=== PATIENT | female | born 1955 | race Caucasian/White ===

== ENCOUNTER 2022-11-07 08:51 | Emergency (ER) | payer MEDICARE, OTHER, SELFPAY ==
[2022-11-07 09:04] VITALS: BMI 29.0
[2022-11-07 09:06] VITALS: BP 138/73; PULSE 84; RESP 16; TEMP 37.1; O2SAT 97
--- NOTE | 2022-11-07 09:10 | ED_ITS ---
HPI - Back Pain/Injury General: Chief Complaint: Back Pain/Injury Stated Complaint: Low back to abd pain Time Seen by Provider: 11/07/22 08:54 Source: patient Mode of arrival: ambulatory History of Present Illness: 67-year-old female presents emergency room complaining of low back pain radiating to the groin she denies any dysuria urgency or frequency. She has a history of chronic back pain issues she fell about 4 to 6 weeks ago while she was in the process of moving here was seen somewhere in [place] she had what sounds like a orbital fracture she had some laceration was repaired and has healed on the right lateral supraorbital ridge. She is complaining primarily of back pain today she has not had any recurrent falls since then. No fevers sweats or chills. MD elicited complaint: fall Pertinent past history: prior back pain Onset (ago): week(s) Timing: constant Similar Symptoms Previously: Yes Quality: sharp Location: lumbar spine Radiation: abdomen Exacerbating factors: sitting upright and walking Relieving factors: supine Context: fall Associated symptoms: Reports tingling/numbness/burning; Deny abdominal pain, arthralgias, chills, change in bowel habits, difficulty walking, dysuria, fatigue, fecal incontinence, fever(s), hematuria, myalgias, nausea, numbness, syncope, urinary frequency, urinary urgency, vomiting or weakness Review of Systems Const: Denies: fever(s), chills or fatigue Card: Denies: chest pain, palpitations or syncope GI: Denies: abdominal pain, nausea, vomiting, fecal incontinence or change in bowel habits : Reports: urinary hesitancy; Denies: dysuria, urinary frequency, urinary urgency or hematuria Neuro: Denies: difficulty walking Physical Exam Const: GENERAL APPEARANCE: cooperative and comfortable ORIENTATION/CONSCIOUSNESS: Yes awake, Yes oriented to person, Yes oriented to place and Yes oriented to time HENMT: COMMON NORMALS: normocephalic, atraumatic and hearing grossly normal bilaterally HEAD & SCALP: normocephalic and atraumatic Resp: COMMON NORMALS: normal respiratory effort, No retractions, No use of accessory muscles and clear to auscultation bilaterally AUSCULTATION: clear to auscultation bilaterally Cardio: COMMON NORMALS: regular rate, regular rhythm and No murmurs present (Cardio) RATE: regular rate RHYTHM: regular rhythm GI: COMMON NORMALS: Soft to palpation and No hepatosplenomegaly present AUSCULTATION: Yes normoactive bowel sounds PALPATION: Yes Soft to palpation, No Tenderness to palpation present (GI), No Guarding due to palpation present (GI) and Yes No hepatosplenomegaly present Extremity: COMMON NORMALS: normal to inspection, capillary refill normal, no clubbing, cyanosis or edema, no calf tenderness and no pedal edema OTHER: Dorsum plantar flexion strength 5/5 deep tendon reflexes in the right leg +2/4 d id not test in the left leg because of healing abrasion overlying the patellar tendon on the left. No muscle wasting noted sensation normal Neuro: SENSORIUM/ORIENTATION: Yes oriented to person, Yes oriented to place and Yes oriented to time Skin: COMMON NORMALS: no rashes or lesions noted GENERAL SKIN EXAM: no rashes or lesions noted Course Vital Signs: Vital signs: Vital Signs Temperature 98.8 F 11/07/22 09:06 Pulse Rate 83 11/07/22 10:01 Respiratory Rate 17 11/07/22 10:01 Blood Pressure 120/94 11/07/22 10:01 Pulse Oximetry 96 11/07/22 10:01 Oxygen Delivery Me thod Room Air 11/07/22 09:06 MDM - Back Pain/Injury Medical Decision Making Chronic back pain no red flag symptoms at this time laboratory tests unremarkable neurovascular intact lower extremities no saddle paresthesias no fecal incontinence. Discharge patient home prednisone taper diclofenac and tizanidine as needed. Case management make arrangements for follow-up in orthopedic spine clinic as well as establish with a primary care doctor. Medical Records I reviewed the patient's medical records. Labs I reviewed the patient's lab results. 11/07/22 09:38 11/07/22 09:38 Laboratory Results WBC 8.7 10^3/uL (4.0-10.0) 11/07/22 09:38 RBC 4.02 10^6/uL (4.1-5.3) L 11/07/22 09:38 Hgb 12.4 g/dL (11.5-15.3) 11/07/22 09:38 Hct 39.7 % (37.0-47.0) 11/07/22 09:38 MCV 98.8 fl (81-99) 11/07/22 09:38 MCH 30.8 pg (28.0-34.0) 11/07/22 09:38 MCHC 31.2 g/dL (30.0-36.0) 11/07/22 09:38 RDW 13.8 % (12.1-15.1) 11/07/22 09:38 Plt Count 223 10^3/cmm (130-400) 11/07/22 09:38 MPV 9.1 fL (7.4-10.4) 11/07/22 09:38 Neut % (Auto) 90.2 % 11/07/22 09:38 Lymph % (Auto) 4.5 % 11/07/22 09:38 Tucker % (Auto) 3.8 % 11/07/22 09:38 Eos % (Auto) 1.0 % 11/07/22 09:38 Baso % (Auto) 0.3 % 11/07/22 09:38 Neut # (Auto) 7.87 10^3/uL (1.8-7.7) H 11/07/22 09:38 Lymph # (Auto) 0.4 10^3/uL (0.8-4.8) L 11/07/22 09:38 Tucker # (Auto) 0.3 10^3/uL (0.2-0.9) 11/07/22 09:38 Eos # (Auto) 0.1 10^3/uL (0.0-0.8) 11/07/22 09:38 Baso # (Auto) 0.0 10^3/uL (0.0-0.1) 11/07/22 09:38 Nucleated RBC % (auto) 0 % 11/07/22 09:38 Nucleated RBCs # 0.0 /100WBC 11/07/22 09:38 Sodium 141 mmol/L (136-145) 11/07/22 09:38 Potassium 4.3 mmol/L (3.5-5.1) 11/07/22 09:38 Chloride 107 mmol/L (98-107) 11/07/22 09:38 Carbon Dioxide 24 mmol/L (22-29) 11/07/22 09:38 Anion Gap 14.3 (5-19) 11/07/22 09:38 BUN 21 mg/dL (8-23) 11/07/22 09:38 Creatinine 0.7 mg/dL (0.5-0.9) 11/07/22 09:38 GFR Calculation 83.0 mL/min (90-130) L 11/07/22 09:38 Glucose 94 mg/dL (65-115) 11/07/22 09:38 Calculated Osmolality 295 mOsm/kg (285-295) 11/07/22 09:38 Calcium 8.9 mg/dL (8.5-10.5) 11/07/22 09:38 Total Bilirubin 0.4 mg/dL (0.15-1.2) 11/07/22 09:38 AST 17 U/L (0-32) 11/07/22 09:38 ALT 20 U/L (0-33) 11/07/22 09:38 Alkaline Phosphatase 158 U/L (35-105) H 11/07/22 09:38 Total Protein 6.8 g/dL (6.6-8.7) 11/07/22 09:38 Albumin 3.4 g/dL (3.5-5.2) L 11/07/22 09:38 Globulin 3.4 g/dL (1.3-4.6) 11/07/22 09:38 Discharge Plan Discharge Patient Disposition: Home Clinical Impression: Strain of lumbar region Condition: Stable Prescriptions: New tizanidine 4 mg tablet 4 mg PO Q6H PRN (Reason: muscle spasticity) Qty: 20 0RF Rx Instructions: do not exceed 3 doses per 24 hrs prednisone 20 mg tablet 20 mg PO TID Qty: 15 0RF Rx Instructions: 1 p.o. 3 times daily x3 days, 1 p.o. twice daily x2 days, 1 p.o. daily x2 days diclofenac sodium 75 mg tablet,delayed release (DR/EC) 75 mg PO Q12H PRN (Reason: pain) Qty: 20 0RF Discharge Orders: Discharge ED (Routine); Ordered 11/07/22 Ordered By: Raul Grullon Discharge Diet: Usual diet Discharge Activity: Resume usual activity Patient Instructions: Chronic Back Pain (DC), Back Pain (ED), Opioid Safety, Pain Management Activity Restrictions/Additional Instructions: You are seen today for back pain chronic in nature. There are no red flag symptoms at this time. Recommend that you follow-up with orthopedic spine surgery and establish with primary care Dr. Case management will help with both. You were given prednisone in the emergency room via your IV. Recommend he start the prednisone oral taper tomorrow you can use the tizanidine and diclofenac as needed. Avoid heavy lifting bending or stooping Coding Level of Care Code ED Design Transferrer for Nate Castañeda
--- NOTE | 2022-11-07 09:33 | ECG_ITS ---
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 Measurements Intervals Morgan Rate: 84 P: 77 NH: 160 QRS: 72 QRSD: 98 T: 76 QT: 399 QTc: 474 Interpretive Statements SINUS RHYTHM WITH OCCASIONAL VENTRICULAR PREMATURE COMPLEXES MODERATE ST DEPRESSION [0.05+ mV ST DEPRESSION] No previous ECG available for comparison Electronically Signed On 11-07-2022 16:40:12 CDT by Tawnya Isaac M.D. [id number]
[2022-11-07] MEDS: ketorolac 30 mg/mL INJ IVP (09:49)
[2022-11-07] MEDS: orphenadrine 30 mg/mL Inj 2 mL 60 MG IVP (09:49)
[2022-11-07] MEDS: dexamethasone 10 mg/mL INJ IVP (09:49)
[2022-11-07 09:50] LABS: Basophils % 0.3 %; Eosinophils # 0.1 10^3/uL (0.0-0.8); Hematocrit 39.7 % (37.0-47.0); Hemoglobin 12.4 g/dL (11.5-15.3); Lymphocytes # 0.4 10^3/uL (0.8-4.8); Lymphocytes % 4.5 %; Mean Corpuscular HGB Conc 31.2 g/dL (30.0-36.0); Mean Corpuscular Hemoglobin 30.8 pg (28.0-34.0); Mean Corpuscular Volume 98.8 fl (81-99); Mean Platelet Volume 9.1 fL (7.4-10.4); Monocytes # 0.3 10^3/uL (0.2-0.9); Monocytes % 3.8 %; Neutrophils # 7.87 10^3/uL (1.8-7.7); Neutrophils % 90.2 %; Nucleated Red Blood Cells % 0 %; Platelet Count 223 10^3/cmm (130-400); Red Blood Count 4.02 10^6/uL (4.1-5.3); Red Cell Distribution Width 13.8 % (12.1-15.1); White Blood Count 8.7 10^3/uL (4.0-10.0)
[2022-11-07 10:01] VITALS: BP 120/94; PULSE 83; RESP 17; O2SAT 96
[2022-11-07 10:09] LABS: Alanine Aminotransferase 20 U/L (0-33); Albumin Level 3.4 g/dL (3.5-5.2); Alkaline Phosphatase 158 U/L (35-105); Aspartate Amino Transferase 17 U/L (0-32); Blood Urea Nitrogen 21 mg/dL (8-23); Calcium 8.9 mg/dL (8.5-10.5); Carbon Dioxide 24 mmol/L (22-29); Chloride 107 mmol/L (98-107); Globulin 3.4 g/dL (1.3-4.6); Glucose 94 mg/dL (65-115); Osmolality Calculated 295 mOsm/kg (285-295); Sodium 141 mmol/L (136-145); Total Bilirubin 0.4 mg/dL (0.15-1.2); Total Protein 6.8 g/dL (6.6-8.7)
[2022-11-07 10:12] LABS: Anion Gap 14.3 (5-19); Potassium 4.3 mmol/L (3.5-5.1)
--- NOTE | 2022-11-07 11:24 | DCPLANNER ---
Addendum entered by Barb Carrillo 11/15/22 09:34: dialysis clinical manager received the following message from the ortho clinic regarding follow up appointment: attempt made to contact patient - when dialing number it gives air and then drops the call. tried multiple times and on different phones w/ same result - will mail letter to call out clinic to schedule w/ dr deleon or armida lowe Original Note: dialysis clinical manager had message to schedule a follow up appointment for patient with ortho. dialysis clinical manager sent patients information to the front office staff at ortho. Patients information will be printed and reviewed. Clinic will call patient with appointment information.
--- NOTE | 2022-11-07 11:26 | DCPLANNER ---
manager chemical called patient due to no primary care physician - no answer at this time.
--- NOTE | 2022-12-13 12:37 | DCPLANNER ---
reo asset manager called patient due to no primary care physician - patient declines at this time.
== END 2022-11-07 10:55 | disposition home or self-care (01) ==
PROVIDERS: Emergency Provider Family Medicine
DX: S39.012A Strain of muscle, fascia and tendon of lower back, initial encounter (principal); W19.XXXA Unspecified fall, initial encounter
CPT/HCPCS: 51798; 80053; 85025; 93005; 96374; 96375; 99284; J1100; J1885; J2360

== ENCOUNTER 2022-12-14 09:09 | Outpatient (CLI) | payer MEDICARE, OTHER, SELFPAY ==
[2022-12-14 10:18] LABS: Alanine Aminotransferase 14 U/L (0-33); Albumin Level 3.3 g/dL (3.5-5.2); Alkaline Phosphatase 153 U/L (35-105); Aspartate Amino Transferase 29 U/L (0-32); Blood Urea Nitrogen 11 mg/dL (8-23); Calcium 8.5 mg/dL (8.5-10.5); Carbon Dioxide 29 mmol/L (22-29); Chloride 94 mmol/L (98-107); Chol HDL Ratio 3.71 mg/dL (0.0-4.40); Cholesterol 141 mg/dL (0-200); Globulin 2.8 g/dL (1.3-4.6); Glomerular Filtration Rate 158.3 mL/min (90-130); Glucose 127 mg/dL (65-115); HDL Cholesterol 38 mg/dL (60-100); LDL Cholesterol Calculated 75 mg/dL (50-129); LDL HDL Ratio 1.97 RATIO (0.00-3.22); Osmolality Calculated 285 mOsm/kg (285-295); Sodium 137 mmol/L (136-145); Total Bilirubin 0.7 mg/dL (0.15-1.2); Total Protein 6.1 g/dL (6.6-8.7); Triglycerides 141 mg/dL (0-150)
[2022-12-14 10:56] LABS: Anion Gap 16.6 (5-19); Potassium 2.6 mmol/L (3.5-5.1)
== END 2022-12-14 09:10 | disposition home or self-care (01) ==
PROVIDERS: Visit Provider Internal Medicine
DX: D64.9 Anemia, unspecified (principal)
CPT/HCPCS: 80053; 80061; 85025

== ENCOUNTER 2022-12-14 11:42 | Emergency (ER) | payer MEDICARE, SELFPAY ==
[2022-12-14 11:44] VITALS: BP 106/72; PULSE 92; RESP 12; TEMP 36.7; O2SAT 95; BMI 19.7
[2022-12-14 12:18] VITALS: BP 108/62; PULSE 100; RESP 19; O2SAT 96
[2022-12-14] MEDS: potassium chloride oral liq 20 mEq/15 mL UDC 40 MEQ PO (12:18)
--- NOTE | 2022-12-14 12:25 | W.ED.RECABL ---
HPI - Recheck/Abnormal Lab/Rx General: Chief Complaint: Recheck/Abnormal Lab/Rx Stated Complaint: critical labs, nausea Time Seen by Provider: 12/14/22 11:59 Source: patient Mode of arrival: EMS History of Present Illness: 67-year-old female resident of [facility] presents emergency room as referral from primary care for hypokalemia. Patient has had a lot of nausea and vomiting recently has had extensive work-up including endoscopy. She been started on promethazine and is doing somewhat better she states her nausea is improved now. MD complaint: abnormal lab Returns today for: called because of abnormal lab/test Symptoms since prior visit: no new symptoms Review of Systems Const: Reports: fatigue; Denies: fever(s), chills or malaise Card: Denies: chest pain Resp: Denies: dyspnea, productive cough or non-productive cough GI: Reports: vomiting and diarrhea; Denies: abdominal pain, nausea, hematemesis, coffee ground emesis, constipation, hematochezia or melena : Denies: flank pain, difficulty voiding, dysuria, urinary frequency or urinary urgency Skin/Breast: Denies: rash or pruritus Physical Exam Const: GENERAL APPEARANCE: cooperative and comfortable ORIENTATION/CONSCIOUSNESS: Yes awake, Yes oriented to person, Yes oriented to place and Yes oriented to time HENMT: COMMON NORMALS: normocephalic, atraumatic and hearing grossly normal bilaterally HEAD & SCALP: normocephalic and atraumatic Resp: COMMON NORMALS: normal respiratory effort, No retractions, No use of accessory muscles and clear to auscultation bilaterally AUSCULTATION: clear to auscultation bilaterally Cardio: COMMON NORMALS: regular rate, regular rhythm and No murmurs present (Cardio) RATE: regular rate RHYTHM: regular rhythm GI: COMMON NORMALS: Soft to palpation and No hepatosplenomegaly present AUSCULTATION: Yes normoactive bowel sounds PALPATION: Yes Soft to palpation, No Tenderness to palpation present (GI), No Guarding due to palpation present (GI) and Yes No hepatosplenomegaly present Extremity: COMMON NORMALS: normal to inspection, capillary refill normal, no clubbing, cyanosis or edema, no calf tenderness and no pedal edema Neuro: SENSORIUM/ORIENTATION: Yes oriented to person, Yes oriented to place and Yes oriented to time Skin: COMMON NORMALS: no rashes or lesions noted GENERAL SKIN EXAM: no rashes or lesions noted Course Vital Signs: Vital signs: Vital Signs Temperature 98.0 F 12/14/22 11:44 Pulse Rate 92 12/14/22 14:18 Respiratory Rate 14 12/14/22 14:18 Blood Pressure 117/69 12/14/22 14:18 Pulse Oximetry 99 12/14/22 14:18 Oxygen Delivery Me thod Room Air 12/14/22 12:50 Oxygen Flow Rate 2 12/14/22 12:18 MDM - Recheck/Abnormal Lab/Rx Medical Decision Making Patient has hypokalemia no hypomagnesemia. Is given p.o. supplement. Will discharge home on p.o. supplement continue to use Phenergan and recheck BMP within 5 to 7 days. Medical Records I reviewed the patient's medical records. Lab Data I reviewed the patient's lab results. 12/14/22 12:26 12/14/22 12:26 Laboratory Results WBC 4.99 10^3/uL (3.29-11.43) 12/14/22 12:26 RBC 4.22 10^6/uL (3.85-5.65) 12/14/22 12:26 Hgb 13.30 g/dL (11.27-16.99) 12/14/22 12:26 Hct 39.4 % (36-47) 12/14/22 12:26 MCV 93.4 fl (85-98) 12/14/22 12:26 MCH 31.5 pg (27-33) 12/14/22 12:26 MCHC 33.8 g/dL (30-55) 12/14/22 12:26 RDW 15.0 % (12.1-15.1) 12/14/22 12:26 Plt Count 163 10^3/cmm (157-399) 12/14/22 12:26 MPV 8.6 fL (7.4-10.4) 12/14/22 12:26 Neut % (Auto) 67.6 % 12/14/22 12:26 Lymph % (Auto) 19.6 % 12/14/22 12:26 Gulf % (Auto) 10.8 % 12/14/22 12:26 Eos % (Auto) 0.2 % 12/14/22 12:26 Baso % (Auto) 0.4 % 12/14/22 12:26 Neut # (Auto) 3.37 10^3/uL (1.8-7.7) 12/14/22 12:26 Lymph # (Auto) 1.0 10^3/uL (0.8-4.8) 12/14/22 12: [place] # (Auto) 0.5 10^3/uL (0.2-0.9) 12/14/22 12:26 Eos # (Auto) 0.0 10^3/uL (0.0-0.8) 12/14/22 12:26 Baso # (Auto) 0.0 10^3/uL (0.0-0.1) 12/14/22 12:26 Nucleated RBC % (auto) 0 % 12/14/22 12: Nucleated RBCs # 0.0 /100WBC 12/14/22 12:26 Sodium 136 mmol/L (136-145) 12/14/22 12:26 Potassium 2.9 mmol/L (3.5-5.1) L 12/14/22 12:26 Chloride 93 mmol/L (98-107) L 12/14/22 12:26 Carbon Dioxide 32 mmol/L (22-29) H 12/14/22 12:26 Anion Gap 13.9 (5-19) 12/14/22 12:26 BUN 12 mg/dL (8-23) 12/14/22 12:26 Creatinine 0.5 mg/dL (0.5-0.9) 12/14/22 12:26 GFR Calculation 122.3 mL/min (90-130) 12/14/22 12:26 Glucose 99 mg/dL (65-115) 12/14/22 12:26 Calculated Osmolality 282 mOsm/kg (285-295) L 12/14/22 12:26 Calcium 8.5 mg/dL (8.5-10.5) 12/14/22 12:26 Magnesium 1.9 mg/dL (1.7-2.3) 12/14/22 12:26 Total Bilirubin 0.6 mg/dL (0.15-1.2) 12/14/22 12:26 AST 26 U/L (0-32) 12/14/22 12:26 ALT 13 U/L (0-33) 12/14/22 12:26 Alkaline Phosphatase 133 U/L (35-105) H 12/14/22 12:26 Total Protein 6.5 g/dL (6.6-8.7) L 12/14/22 12:26 Albumin 2.9 g/dL (3.5-5.2) L 12/14/22 12:26 Globulin 3.6 g/dL (1.3-4.6) 12/14/22 12:26 Discharge Plan Discharge Patient Disposition: Home Clinical Impression: Hypokalemia Condition: Stable Prescriptions: New potassium chloride 20 mEq tablet extended release 20 meq PO DAILY Qty: 20 0RF No Action tizanidine 4 mg tablet 4 mg PO Q6H PRN (Reason: muscle spasticity) Qty: 20 0RF Rx Instructions: do not exceed 3 doses per 24 hrs diclofenac sodium 75 mg tablet,delayed release (DR/EC) 75 mg PO Q12H PRN (Reason: pain) Qty: 20 0RF gabapentin 600 mg Tablet 600 mg PO TID Zoloft 100 mg Tablet 100 mg PO DAILY clopidogrel 75 mg Tablet 75 mg PO DAILY losartan 25 mg Tablet 25 mg PO DAILY levothyroxine 175 mcg Capsule 175 mcg PO DAILY Discharge Orders: Discharge ED (Routine); Ordered 12/14/22 Ordered By: Raul Grullon Discharge Diet: Usual diet Discharge Activity: Increase activity as tolerated Patient Instructions: Opioid Safety, Pain Management Activity Restrictions/Additional Instructions: Recheck potassium in 5 to 7 days. Your primary care provider can decide whether or not you need to continue increase or stop the potassium supplement at that time. Coding Level of Care Code ED Business Process Representative for Nate Castañeda
--- NOTE | 2022-12-14 12:28 | DCPLANNER ---
executive office manager seen patient due to no primary care physician. Patient is from [facility], where she sees Dr. Kaufman for her primary care physician at this time.
[2022-12-14 12:34] LABS: Basophils % 0.4 %; Eosinophils % 0.2 %; Hematocrit 39.4 % (36-47); Lymphocytes % 19.6 %; Mean Corpuscular HGB Conc 33.8 g/dL (30-55); Mean Corpuscular Hemoglobin 31.5 pg (27-33); Mean Corpuscular Volume 93.4 fl (85-98); Mean Platelet Volume 8.6 fL (7.4-10.4); Monocytes # 0.5 10^3/uL (0.2-0.9); Monocytes % 10.8 %; Neutrophils # 3.37 10^3/uL (1.8-7.7); Neutrophils % 67.6 %; Nucleated Red Blood Cells % 0 %; Platelet Count 163 10^3/cmm (157-399); Red Blood Count 4.22 10^6/uL (3.85-5.65); White Blood Count 4.99 10^3/uL (3.29-11.43)
[2022-12-14 12:50] VITALS: BP 108/73; PULSE 98; RESP 19; O2SAT 98
[2022-12-14 12:58] LABS: Alanine Aminotransferase 13 U/L (0-33); Albumin Level 2.9 g/dL (3.5-5.2); Alkaline Phosphatase 133 U/L (35-105); Anion Gap 13.9 (5-19); Aspartate Amino Transferase 26 U/L (0-32); Blood Urea Nitrogen 12 mg/dL (8-23); Calcium 8.5 mg/dL (8.5-10.5); Carbon Dioxide 32 mmol/L (22-29); Chloride 93 mmol/L (98-107); Globulin 3.6 g/dL (1.3-4.6); Glomerular Filtration Rate 122.3 mL/min (90-130); Glucose 99 mg/dL (65-115); Magnesium 1.9 mg/dL (1.7-2.3); Osmolality Calculated 282 mOsm/kg (285-295); Sodium 136 mmol/L (136-145); Total Bilirubin 0.6 mg/dL (0.15-1.2); Total Protein 6.5 g/dL (6.6-8.7)
[2022-12-14 13:00] LABS: Potassium 2.9 mmol/L (3.5-5.1)
--- NOTE | 2022-12-14 14:11 | PC.NURSE ---
Report called to Isaias. No questions.
[2022-12-14 14:18] VITALS: BP 117/69; PULSE 92; RESP 14; O2SAT 99
== END 2022-12-14 14:20 | disposition home or self-care (01) ==
PROVIDERS: Emergency Provider Family Medicine; PCP Family Medicine
DX: E87.6 Hypokalemia (principal); Z79.02 Long term (current) use of antithrombotics/antiplatelets
CPT/HCPCS: 36415; 80053; 83735; 85025; 99283

== ENCOUNTER 2022-12-15 09:11 | Outpatient (CLI) | payer MEDICARE, SELFPAY ==
[2022-12-15 09:42] LABS: Potassium 3.1 mmol/L (3.5-5.1)
== END 2022-12-15 09:12 | disposition home or self-care (01) ==
PROVIDERS: PCP Family Medicine; Visit Provider Internal Medicine
DX: E87.6 Hypokalemia (principal)
CPT/HCPCS: 84132

== ENCOUNTER 2022-12-19 07:14 | Emergency (ER) | payer MEDICARE, OTHER, SELFPAY ==
--- NOTE | 2022-12-19 07:21 | CTR_ITS ---
PROCEDURE INFORMATION: Exam: CT Head Without Contrast Exam date and time: 12/19/2022 7:35 AM Age: 67 years old Clinical indication: Injury or trauma; Fall; Blunt trauma (contusions or hematomas) TECHNIQUE: Imaging protocol: Computed tomography of the head without contrast. Radiation optimization: All CT scans at this facility use at least one of these dose optimization techniques: automated exposure control; mA and/or kV adjustment per patient size (includes targeted exams where dose is matched to clinical indication); or iterative reconstruction. REPORTING DATA: Count of CT and Cardiac NM exams in prior 12 months: This patient has received 0 known CTs and 0 known cardiac nuclear medicine studies in the 12 months prior to the current study. COMPARISON: No relevant prior studies available. RADIATION DOSE METRICS: Total DLP (mGy-cm): 1011.38 FINDINGS: Brain: There is mild small vessel disease. There is no evidence of acute parenchymal hemorrhage, extra-axial collection, or acute infarction. There is no mass effect, midline shift, or downward herniation. Cerebral ventricles: No ventriculomegaly. Paranasal sinuses: Visualized sinuses are unremarkable. No fluid levels. Mastoid air cells: Visualized mastoid air cells are well aerated. Bones/joints: Unremarkable. No acute fracture. Soft tissues: There is mild right frontal scalp soft tissue swelling. CT/CT head wo con* [id number] IMPRESSION: Mild small vessel disease. No evidence of acute intracranial process.
--- NOTE | 2022-12-19 07:26 | W.ED.FALL ---
HPI - Fall General: Chief Complaint: Fall Stated Complaint: Fall Time Seen by Provider: 12/19/22 07:15 Source: patient Mode of arrival: EMS History of Present Illness: 67-year-old female presents to the emergency room from the shelter after a fall at the shelter. She has frequent falls there. She states she hit the left side of her face there is no bruising no ecchymosis no swelling or abrasions or lacerations. She has an old laceration with what appears to be a calcified area of blood under the skin along the supraorbital ridge the laceration is healing well it is not dehisced or reopened. She has some tenderness along the infraorbital ridge but no crepitus or deformity she denies loss conscious no vomiting. Her medication list from the shelter was Plavix and Eliquis. complaint: fall Onset (ago): minute(s) Fall from: standing Fall witnessed: yes, by living facility staff Place fall occurred: shelter/SNF Loss of consciousness: None Prolonged down time: no Location of injury: head Associated symptoms-after fall: Reports no associated symptoms and other; Denies abdominal pain, chest pain, confusion, headache(s), lightheadedness, neck pain, numbness, short of breath, vertigo or weakness Review of Systems Const: Denies: fever(s) or chills Card: Denies: chest pain or lightheadedness Resp: Denies: dyspnea GI: Denies: abdominal pain : Denies: dysuria, urinary frequency or urinary urgency Musc: Denies: neck pain Skin/Breast: Denies: rash or pruritus Neuro: Denies: headache(s), vertigo or confusion Physical Exam Const: COMMON NORMALS: no acute distress GENERAL APPEARANCE: cooperative and comfortable ORIENTATION/CONSCIOUSNESS: Yes awake, Yes oriented to person, Yes oriented to place and Yes oriented to time HENMT: COMMON NORMALS: normocephalic, atraumatic and hearing grossly normal bilaterally HEAD & SCALP: normocephalic and atraumatic Resp: COMMON NORMALS: normal respiratory effort, No retractions, No use of accessory muscles and clear to auscultation bilaterally AUSCULTATION: clear to auscultation bilaterally Cardio: COMMON NORMALS: regular rate, regular rhythm and No murmurs present (Cardio) RATE: regular rate RHYTHM: regular rhythm GI: COMMON NORMALS: Soft to palpation and No hepatosplenomegaly present AUSCULTATION: Yes normoactive bowel sounds PALPATION: Yes Soft to palpation, No Tenderness to palpation present (GI), No Guarding due to palpation present (GI) and Yes No hepatosplenomegaly present Extremity: COMMON NORMALS: normal to inspection, capillary refill normal, no clubbing, cyanosis or edema, no calf tenderness and no pedal edema Neuro: SENSORIUM/ORIENTATION: Yes oriented to person, Yes oriented to place and Yes oriented to time Skin: COMMON NORMALS: no rashes or lesions noted GENERAL SKIN EXAM: no rashes or lesions noted Course Vital Signs: Vital signs: Vital Signs Temperature 98.5 F 12/19/22 07:30 Pulse Rate 105 H 12/19/22 08:13 Respiratory Rate 16 12/19/22 08:13 Blood Pressure 118/80 12/19/22 08:13 Pulse Oximetry 98 12/19/22 08:13 Oxygen Delivery Me thod Room Air 12/19/22 07:30 MDM - Fall Medical Decision Making No evidence of fracture CT head and C-spine are normal. Interestingly patient states whenever she falls like this she will vomit. She did indeed have an episode of vomiting shortly after arrival. CT head did not show any acute intracranial injury we will discharge patient back to the shelter continue same medications. Medical Records I reviewed the patient's medical records. Lab Data I reviewed the patient's lab results. Radiology Impressions Head CT 12/19/22 07:21 IMPRESSION: Mild small vessel disease. No evidence of acute intracranial process. Discharge Plan Discharge Patient Disposition: Home Clinical Impression: Closed head injury, Fall Condition: Stable Prescriptions: No Action sertraline [Zoloft] 100 mg Tablet 100 mg PO BID potassium chloride 20 mEq tablet extended release 20 meq PO DAILY Qty: 20 0RF atorvastatin 40 mg Tablet 40 mg PO DAILY Tylenol 325 mg Tablet 650 mg PO Q4H PRN (Reason: Pain) ropinirole 1 mg Tablet 1 mg PO TID promethazine 25 mg Suppository 25 mg LA Q6H PRN (Reason: Nausea And Vomiting) sumatriptan succinate 50 mg Tablet See Rx Instructions .ROUTE .COMPLEX Rx Instructions: 50mg po every 24 hours as needed for migraine (may repeat dose after 2 hours up to a max of 200mg in 24 hours) Aspir-81 81 mg Tablet,Delayed Release (Dr/Ec) 81 mg PO DAILY Milk of Magnesia 400 mg/5 mL Suspension 30 ml PO DAILY PRN (Reason: Constipation) Dulcolax (bisacodyl) 10 mg Suppository 10 mg LA DAILY PRN (Reason: Constipation) pantoprazole 40 mg Tablet,Delayed Release (Dr/Ec) 40 mg PO DAILY promethazine 25 mg Tablet 25 mg PO Q6H PRN (Reason: Nausea And Vomiting) levothyroxine 150 mcg Tablet 150 mcg PO DAILY Fleet Enema 19-7 gram/118 mL Enema 118 ml LA DAILY PRN (Reason: Constipation) gabapentin 300 mg Capsule 300 mg PO TID metoclopramide HCl 10 mg Tablet 10 mg PO Q8H PRN (Reason: Nausea And Vomiting) oxycodone 5 mg Tablet 5 mg PO Q6H PRN (Reason: Pain) Eliquis 5 mg Tablet 5 mg PO BID Discharge Orders: Discharge ED (Routine); Ordered 12/19/22 Ordered By: Raul Grullon Referrals: Marcia Kaufman MD [Primary Care Provider] - Discharge Diet: Usual diet Discharge Activity: Increase activity as tolerated Patient Instructions: Opioid Safety, Pain Management Coding Level of Care Code ED Floor Coverer for Nate Castañeda
[2022-12-19 07:30] VITALS: BP 118/80; PULSE 89; RESP 16; TEMP 36.9; O2SAT 97; BMI 20.5
--- NOTE | 2022-12-19 07:47 | XR_ITS ---
WS: [id number] Exam: XR cervical spine 3V* [id number] Date/Time of Exam: 12/19/2022 7:48 AM Reason For Exam: Trauma No acute fracture or dislocation. There is straightening and reversal of the normal cervical C curve. Mild degenerative anterolisthesis of C4 on C5. Facet DJD at all levels. Spondylosis and degenerative disc change from C4-C7. Normal paraspinal soft tissues. The odontoid is intact. Upper thoracic scoli osis and signs of previous kyphoplasty. IMPRESSION: 1. No acute fracture or malalignment. 2. Straightening and moderate degenerative changes as detailed above.
--- NOTE | 2022-12-19 07:52 | PC.PHAR ---
pt is from [facility] emergency department-medications entered are from the pts med list from [facility]
[2022-12-19] MEDS: ondansetron 2 mg/ML SDV 2 mL 4 MG IM (08:00)
[2022-12-19 08:13] VITALS: BP 118/80; PULSE 105; RESP 16; O2SAT 98
[2022-12-19 08:44] VITALS: BP 118/80; PULSE 105; RESP 16; O2SAT 98
== END 2022-12-19 08:46 | disposition home or self-care (01) ==
PROVIDERS: Emergency Provider Family Medicine; PCP Family Medicine
DX: S09.8XXA Other specified injuries of head, initial encounter (principal); Z79.82 Long term (current) use of aspirin; Z79.01 Long term (current) use of anticoagulants; W19.XXXA Unspecified fall, initial encounter; Y92.129 Unspecified place in nursing home as the place of occurrence of the external cause
CPT/HCPCS: 70450; 72040; 96372; 99284; J2405

== ENCOUNTER 2022-12-26 13:35 | Emergency (ER) | payer MEDICARE, OTHER, SELFPAY ==
[2022-12-26 13:37] VITALS: BP 128/94; PULSE 111; RESP 18; TEMP 37.4; O2SAT 93
--- NOTE | 2022-12-26 13:52 | CT_ITS ---
WS: [id number] CT HEAD TECHNIQUE: Noncontrast CT of the head obtained from the skullbase to the vertex. CLINICAL INFORMATION: fall with head injury COMPARISON: 12/19/2022 DLP: [address] scans at [facility] use at least one of these dose optimization techniques: automated e xposure control; mA and/or kV adjustment per patient size (includes targeted exams where dose is matc hed to clinical indication); or iterative reconstruction. FINDINGS: No evidence of intracranial hemorrhage or mass effect. Ventricular system and basal cisterns are cotter nt. Mild small vessel changes with mild parenchymal volume loss. Vascular calcification. No extra-axi al fluid collections. No evidence of mass or mass effect. Paranasal sinuses and mastoid air cells are well aerated. .Normal visualized soft tissues. IMPRESSION: 1. No evidence of intracranial hemorrhage or mass effect. 2. No acute intracranial findings.
[2022-12-26 14:05] LABS: Basophils % 0.2 %; Hematocrit 32.8 % (36-47); Lymphocytes # 1.3 10^3/uL (0.8-4.8); Lymphocytes % 9.1 %; Mean Corpuscular HGB Conc 33.8 g/dL (30-55); Mean Corpuscular Hemoglobin 31.7 pg (27-33); Mean Corpuscular Volume 93.7 fl (85-98); Mean Platelet Volume 8.9 fL (7.4-10.4); Monocytes # 0.8 10^3/uL (0.2-0.9); Monocytes % 5.2 %; Neutrophils # 12.32 10^3/uL (1.8-7.7); Neutrophils % 84.5 %; Nucleated Red Blood Cells # 0.1 /100WBC; Nucleated Red Blood Cells % 0.5 %; Platelet Count 265 10^3/cmm (157-399); Red Cell Distribution Width 16.2 % (12.1-15.1); White Blood Count 14.59 10^3/uL (3.29-11.43)
--- NOTE | 2022-12-26 14:14 | ECG_ITS ---
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 Measurements Intervals [place] Rate: 106 P: 72 CO: 147 QRS: 70 QRSD: 89 T: 44 QT: 371 QTc: 494 Interpretive Statements SINUS TACHYCARDIA ST DEVIATION AND MODERATE T-WAVE ABNORMALITY, CONSIDER ANTERIOR ISCHEMIA [-0.1+ mV T-WAVE IN V3/V4] ST DEVIATION AND MODERATE T-WAVE ABNORMALITY, CONSIDER INFERIOR ISCHEMIA [-0.1+ mV T-WAVE IN II/aVF] Compared to ECG 11/07/2022 09:33:33 T-wave abnormality now present Possible ischemia now present Sinus rhythm no longer present Ventricular premature complex(es) no longer present ST (T wave) deviation no longer present Electronically Signed On 12-26-2022 16:35:13 CDT by William Mcguire M.D. [id number]
[2022-12-26 14:16] LABS: Alanine Aminotransferase 21 U/L (0-33); Albumin Level 3.9 g/dL (3.5-5.2); Alkaline Phosphatase 174 U/L (35-105); Aspartate Amino Transferase 32 U/L (0-32); Blood Urea Nitrogen 21 mg/dL (8-23); Calcium 9.3 mg/dL (8.5-10.5); Carbon Dioxide 20 mmol/L (22-29); Chloride 99 mmol/L (98-107); Globulin 3.6 g/dL (1.3-4.6); Glomerular Filtration Rate 71.1 mL/min (90-130); Glucose 112 mg/dL (65-115); Osmolality Calculated 290 mOsm/kg (285-295); Sodium 138 mmol/L (136-145); Total Bilirubin 1.1 mg/dL (0.15-1.2); Total Protein 7.5 g/dL (6.6-8.7)
[2022-12-26] MEDS: sodium chloride 0.9% 500 ML IV (14:38)
[2022-12-26 14:40] VITALS: BP 113/75; PULSE 107; O2SAT 94
--- NOTE | 2022-12-26 15:00 | W.ED.FALL ---
HPI - Fall General: Chief Complaint: Fall Stated Complaint: AMS, Fall Time Seen by Provider: 12/26/22 13:52 History of Present Illness: 67-year-old female with a history of atrial fibrillation, hypertension, hyperlipidemia, thyroid disorder and GERD presents emergency room via EMS after sustaining a fall. Patient revealed that she bumped her head and presented with some hematoma forehead. She denies any headache, nausea, vomiting, abdominal pain, dysuria, hematuria urine frequency. No numbness or tingling of lower upper extremity. No change in speech. Patient denies any loss of consciousness. Associated symptoms-after fall: Denies abdominal pain, chest pain, hematuria or lightheadedness Review of Systems General: Reports: 10 or more systems reviewed and unremarkable except in HPI and below Card: Denies: chest pain, palpitations, irregular heart rhythm, edema, swelling of feet/ankles or lightheadedness Resp: Denies: dyspnea, productive cough, non-productive cough or wheezing GI: Denies: abdominal pain, nausea, vomiting or hematemesis : Denies: flank pain, difficulty voiding, dysuria, dribbling, nocturia, oliguria, urinary incontinence or hematuria Skin/Breast: Reports: other (Forehead bruising); Denies: skin pain, sores, changing lesions or lesions Asad/Lymph: Reports: easy bleeding; Denies: enlarged lymph nodes or tender lymph nodes Physical Exam Const: COMMON NORMALS: no acute distress HENMT: COMMON NORMALS: Normal external nose present HEAD IMAGES: 1. Area with superficial bruising no scalp deformity or depression. NOSE: Normal external nose present and Normal nares present MOUTH: Normal oral and palatal mucosa present Eye: COMMON NORMALS: Equal, round and reactive pupils present, EOMs intact bilaterally, conjunctivae normal, no scleral icterus, no papilledema, normal visual mcintosh by confrontation and fundi normal bilaterally CONJUNCTIVA: Yes conjunctivae normal PUPIL: Yes Equal, round and reactive pupils present DIRECT OPHTHALMOSCOPY: Yes no papilledema and Yes fundi normal bilaterally Neck/C-Spine: COMMON NORMALS: full ROM, supple, no meningeal signs and no JVD; negative for no lymphadenopathy Chest: COMMONS NORMALS: normal inspection of the chest, normal palpation of entire chest wall, normal inspection of the breasts and normal palpation of the breasts Breast/axilla inspection: Yes normal inspection of the breasts BREAST/AXILLA PALPATION: Yes normal palpation of the breasts Resp: COMMON NORMALS: normal respiratory effort, No retractions, No use of accessory muscles, clear to auscultation bilaterally and percussion normal AUSCULTATION: clear to auscultation bilaterally PERCUSSION: percussion normal Cardio: COMMON NORMALS: no JVD, regular rhythm, S1 normal heart sound present and S2 normal heart sound present PALPATION: normal PMI RATE: tachycardic RHYTHM: regular rhythm and abnormal rhythm HEART SOUNDS: S1 normal heart sound present and S2 normal heart sound present GI: COMMON NORMALS: Normal to inspection, nondistended, normoactive bowel sounds present, Soft to palpation, non-tender, No hepatosplenomegaly present, no masses and no bruits PALPATION: Yes Soft to palpation and Yes No hepatosplenomegaly present : COMMON NORMALS: Yes no CVA tenderness BLADDER/KIDNEY EXAM: Yes no CVA tenderness Back/Pelvis: COMMON NORMALS: no CVA tenderness, thoracic and lumbar spine normal to inspection, no thoracic nor lumbar tenderness, thoraco-lumbar ROM normal and straight leg raise negative bilaterally Extremity: COMMON NORMALS: normal to inspection, full ROM, capillary refill normal, no joint enlargement, no clubbing, cyanosis or edema, no calf tenderness and no pedal edema Neuro: MENINGEAL SIGNS: Yes no meningeal signs Psych: COMMON NORMALS: speech normal APPEARANCE: Yes grossly normal, No disheveled and No bizarre ATTITUDE: Yes calm SPEECH: Yes normal speech MOOD & AFFECT: Yes euthymic mood Course Reevaluation(s): Reevaluation #1: Upon reassessment patient is awake alert without any acute distress. When at bedside at this time. Heart rate on the monitor is less than 100. Vital Signs: Vital signs: Vital Signs Temperature 99.4 F 12/26/22 13:37 Pulse Rate 105 H 12/26/22 17:03 Respiratory Rate 18 12/26/22 17:03 Blood Pressure 115/64 12/26/22 17:03 Pulse Oximetry 95 12/26/22 17:03 Oxygen Delivery Me thod Room Air 12/26/22 14:40 MDM - Fall Medical Decision Making Patient made comfortable emergency room and had extensive work-up including CT head, CBC, CMP, UA. Patient was found to have UTI was given IV antibiotics. Commend admission for observation but patient declined admission and would like to be discharged home with . Patient was discharged home with oral antibiotics. Follow-up PCP recommended for further evaluation and treatment. Differential Diagnosis Likely syncope, compression fracture, concussion with loss of consciousness and concussion without loss of consciousness (UTI, fracture, dislocation, contusion) Lab Data 12/26/22 13:22 12/26/22 13:22 Laboratory Results WBC 14.59 10^3/uL (3.29-11.43) H 12/26/22 13:22 RBC 3.50 10^6/uL (3.85-5.65) L 12/26/22 13:22 Hgb 11.10 g/dL (11.27-16.99) L 12/26/22 13:22 Hct 32.8 % (36-47) L 12/26/22 13:22 MCV 93.7 fl (85-98) 12/26/22 13:22 MCH 31.7 pg (27-33) 12/26/22 13:22 MCHC 33.8 g/dL (30-55) 12/26/22 13:22 RDW 16.2 % (12.1-15.1) H 12/26/22 13:22 Plt Count 265 10^3/cmm (157-399) 12/26/22 13:22 MPV 8.9 fL (7.4-10.4) 12/26/22 13:22 Neut % (Auto) 84.5 % 12/26/22 13:22 Lymph % (Auto) 9.1 % 12/26/22 13:22 Hancock % (Auto) 5.2 % 12/26/22 13:22 Eos % (Auto) 0.0 % 12/26/22 13:22 Baso % (Auto) 0.2 % 12/26/22 13:22 Neut # (Auto) 12.32 10^3/uL (1.8-7.7) H 12/26/22 13:22 Lymph # (Auto) 1.3 10^3/uL (0.8-4.8) 12/26/22 13:22 Hancock # (Auto) 0.8 10^3/uL (0.2-0.9) 12/26/22 13:22 Eos # (Auto) 0.0 10^3/uL (0.0-0.8) 12/26/22 13:22 Baso # (Auto) 0.0 10^3/uL (0.0-0.1) 12/26/22 13:22 Nucleated RBC % (auto) 0.5 % 12/26/22 13:22 Nucleated RBCs # 0.1 /100WBC 12/26/22 13:22 Sodium 138 mmol/L (136-145) 12/26/22 13:22 Potassium 4.0 mmol/L (3.5-5.1) 12/26/22 13:22 Chloride 99 mmol/L (98-107) 12/26/22 13:22 Carbon Dioxide 20 mmol/L (22-29) L 12/26/22 13:22 Anion Gap 23.0 (5-19) H 12/26/22 13:22 BUN 21 mg/dL (8-23) 12/26/22 13:22 Creatinine 0.8 mg/dL (0.5-0.9) 12/26/22 13:22 GFR Calculation 71.1 mL/min (90-130) L 12/26/22 13:22 Glucose 112 mg/dL (65-115) 12/26/22 13:22 Calculated Osmolality 290 mOsm/kg (285-295) 12/26/22 13:22 Calcium 9.3 mg/dL (8.5-10.5) 12/26/22 13:22 Total Bilirubin 1.1 mg/dL (0.15-1.2) 12/26/22 13:22 AST 32 U/L (0-32) 12/26/22 13:22 ALT 21 U/L (0-33) 12/26/22 13:22 Alkaline Phosphatase 174 U/L (35-105) H 12/26/22 13:22 Total Protein 7.5 g/dL (6.6-8.7) 12/26/22 13:22 Albumin 3.9 g/dL (3.5-5.2) 12/26/22 13:22 Globulin 3.6 g/dL (1.3-4.6) 12/26/22 13:22 Urine Color Yellow (Yellow) 12/26/22 14:53 Urine Appearance Hazy (CLEAR) A 12/26/22 14:53 Urine pH 5 (5-7) 12/26/22 14:53 Ur Specific Central 1.015 (1.005-1.030) 12/26/22 14:53 Urine Protein 1+ (Negative) H 12/26/22 14:53 Urine Glucose (UA) Norm (Normal) 12/26/22 14:53 Urine Ketones 1+ (Negative) H 12/26/22 14:53 Urine Blood Trace (Negative) H 12/26/22 14:53 Urine Nitrate Positive (Negative) H 12/26/22 14:53 Urine Bilirubin 1+ (Negative) H 12/26/22 14:53 Urine Urobilinogen Norm mg/dL (Negative) 12/26/22 14:53 Ur Leukocyte Esterase 2+ (Negative) H 12/26/22 14:53 Urine RBC 0-4 /hpf (0-2) H 12/26/22 14:53 Urine WBC 40-55 /hpf (0-5) H 12/26/22 14:53 Ur Squamous Epith Cells 0-4 /hpf (0-5) H 12/26/22 14:53 Amorphous Sediment Not Reportable 12/26/22 14:53 Urine Bacteria 4+ /hpf (NONE) H 12/26/22 14:53 Urine Opiates Screen Negative ng/mL (Negative) 12/26/22 14:53 Ur Barbiturates Screen Negative ng/mL (Negative) 12/26/22 14:53 Ur Phencyclidine Scrn Negative ng/mL (Negative) 12/26/22 14:53 Ur Amphetamines Screen Negative ng/mL (Negative) 12/26/22 14:53 U Benzodiazepines Scrn Positive ng/mL (Negative) H 12/26/22 14:53 Urine Cocaine Screen Negative ng/mL (Negative) 12/26/22 14:53 U Marijuana (THC) Screen Negative ng/mL (Negative) 12/26/22 14:53 XR interpretation done by ED provider, pending radiology final review EKG Data EKG 1: Interpretation: Less tachycardic with a rate of [address] changes. UT interval is 147 QT 371 Discharge Plan Discharge Patient Disposition: Home Clinical Impression: Acute UTI, Closed head injury, Fall, Benzodiazepine dependence Condition: Stable Prescriptions: New Macrobid 100 mg capsule 100 mg PO Q12H 10 Days Qty: 20 0RF Rx Instructions: must administer with a meal/food No Action sertraline [Zoloft] 100 mg Tablet 100 mg PO BID potassium chloride 20 mEq tablet extended release 20 meq PO DAILY Qty: 20 0RF atorvastatin 40 mg Tablet 40 mg PO DAILY Tylenol 325 mg Tablet 650 mg PO Q4H PRN (Reason: Pain) ropinirole 1 mg Tablet 1 mg PO TID promethazine 25 mg Suppository 25 mg UT Q6H PRN (Reason: Nausea And Vomiting) sumatriptan succinate 50 mg Tablet See Rx Instructions .ROUTE .COMPLEX Rx Instructions: 50mg po every 24 hours as needed for migraine (may repeat dose after 2 hours up to a max of 200mg in 24 hours) Aspir-81 81 mg Tablet,Delayed Release (Dr/Ec) 81 mg PO DAILY Milk of Magnesia 400 mg/5 mL Suspension 30 ml PO DAILY PRN (Reason: Constipation) Dulcolax (bisacodyl) 10 mg Suppository 10 mg UT DAILY PRN (Reason: Constipation) pantoprazole 40 mg Tablet,Delayed Release (Dr/Ec) 40 mg PO DAILY promethazine 25 mg Tablet 25 mg PO Q6H PRN (Reason: Nausea And Vomiting) levothyroxine 150 mcg Tablet 150 mcg PO DAILY Fleet Enema 19-7 gram/118 mL Enema 118 ml UT DAILY PRN (Reason: Constipation) gabapentin 300 mg Capsule 300 mg PO TID metoclopramide HCl 10 mg Tablet 10 mg PO Q8H PRN (Reason: Nausea And Vomiting) oxycodone 5 mg Tablet 5 mg PO Q6H PRN (Reason: Pain) Eliquis 5 mg Tablet 5 mg PO BID Discharge Orders: Discharge ED (Routine); Ordered 12/26/22 Ordered By: Beba Daly Referrals: Marcia Kaufman MD [Primary Care Provider] - Discharge Diet: Advance as tolerated Discharge Activity: Resume usual activity Patient Instructions: Opioid Safety, Pain Management Coding Level of Care Code ED 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
--- NOTE | 2022-12-26 15:08 | PC.PHAR ---
waiting on fax from [facility]- requested at 3 pm
[2022-12-26 15:31] LABS: Amphetamines Screen Urine Negative (Negative); Barbiturates Screen Urine Negative (Negative); Benzodiazepines Screen Urine Positive (Negative); Cocaine Screen Urine Negative (Negative); Opiate Screen Urine Negative (Negative); PCP Screen Urine Negative (Negative); THC Screen Urine Negative (Negative)
[2022-12-26 15:47] LABS: Add Urine Culture? Yes; Add Urine Microscopic? YES; Bacteria Urine 4+ /hpf; Bilirubin Urine 1+ (Negative); Blood Urine Trace (Negative); Glucose Urine UA Norm (Normal); Ketones Urine 1+ (Negative); Leukocyte Esterase Urine 2+ (Negative); Nitrate Urine Positive (Negative); Protein Urine 1+ (Negative); RBC Urine 0-4 /hpf (0-2); Specific Gravity, Urine 1.015 (1.005-1.030); Squamous Epithelial Cell Urine 0-4 /hpf (0-5); Urine Appearance Hazy (CLEAR); Urine Color Yellow (Yellow); Urobilinogen Urine Norm (Negative); WBC Urine 40-55 /hpf (0-5); pH Urine 5 (5-7)
[2022-12-26] MEDS: cefTRIAXone 1,000 MG in sodium chloride 0.9% (plus) 50 ML 100 MG IV (16:10)
[2022-12-26 17:03] VITALS: BP 115/64; PULSE 105; RESP 18; O2SAT 95
== END 2022-12-26 17:04 | disposition home or self-care (01) ==
PROVIDERS: Emergency Provider Family Medicine; PCP Family Medicine
DX: N39.0 Urinary tract infection, site not specified (principal); S00.83XA Contusion of other part of head, initial encounter; S09.8XXA Other specified injuries of head, initial encounter; F13.20 Sedative, hypnotic or anxiolytic dependence, uncomplicated; Z79.01 Long term (current) use of anticoagulants; Z79.82 Long term (current) use of aspirin; I10 Essential (primary) hypertension; E78.5 Hyperlipidemia, unspecified; W19.XXXA Unspecified fall, initial encounter
CPT/HCPCS: 70450; 80053; 80306; 81001; 85025; 87077; 87086; 87186; 93005; 96361; 96365; 99285; J0696; J7040

== ENCOUNTER 2022-12-26 21:38 | Inpatient (IN) | payer MEDICARE, OTHER, SELFPAY ==
[2022-12-26 21:41] VITALS: BP 144/89; PULSE 108; RESP 18; TEMP 36.9; O2SAT 95; BMI 22.6
[2022-12-26 21:55] LABS: Glucose Point of Care 112 mg/dL (70-110)
--- NOTE | 2022-12-26 22:00 | W.ED.FALL ---
HPI - Fall General: Chief Complaint: Fall Stated Complaint: AMS Time Seen by Provider: 12/26/22 21:43 History of Present Illness: Patient was brought to the ER secondary for altered mental status. Patient was found down in her driveway. They were essentially called for lift assist and when he got there she was altered. Patient was also seen earlier today here for a fall and was DC'd home because she did not want to get admitted. Patient has a diagnosis of UTI and was given IV antibiotics. Earlier today she had a CT of the head CBC CMP UA. Patient and hold a conversation but gets very confused on details and specifics. Review of Systems General: Reports: 10 or more systems reviewed and unremarkable except in HPI and below Physical Exam Const: COMMON NORMALS: no acute distress, average body habitus, no limitations (Altered mental status/confusion), healthy appearing, alert and well nourished HENMT: COMMON NORMALS: normocephalic, hearing grossly normal bilaterally, external ears normal, Normal external nose present and moist oral mucous membranes HEAD & SCALP: normocephalic NOSE: Normal external nose present EXTERNAL EAR: Yes external ears normal Neck/C-Spine: COMMON NORMALS: no JVD Chest: COMMONS NORMALS: normal inspection of the chest and normal palpation of entire chest wall Resp: COMMON NORMALS: normal respiratory effort, No retractions, No use of accessory muscles and clear to auscultation bilaterally AUSCULTATION: clear to auscultation bilaterally Cardio: COMMON NORMALS: no JVD, regular rate, regular rhythm, S1 normal heart sound present, S2 normal heart sound present, No gallops present (Cardio), No clicks present (Cardio), No murmurs present (Cardio) and No rub (Cardio) RATE: regular rate RHYTHM: regular rhythm HEART SOUNDS: S1 normal heart sound present and S2 normal heart sound present GI: COMMON NORMALS: Normal to inspection, nondistended, normoactive bowel sounds present, Soft to palpation, non-tender, No hepatosplenomegaly present and no masses PALPATION: Yes Soft to palpation and Yes No hepatosplenomegaly present : COMMON NORMALS: Yes no CVA tenderness BLADDER/KIDNEY EXAM: Yes no CVA tenderness Back/Pelvis: COMMON NORMALS: no CVA tenderness Neuro: SENSORIUM/ORIENTATION: Yes alert Course Vital Signs: Vital signs: Vital Signs Temperature 98.4 F 12/26/22 21:41 Pulse Rate 108 H 12/26/22 21:41 Respiratory Rate 18 12/26/22 21:41 Blood Pressure 144/89 12/26/22 21:41 Pulse Oximetry 95 12/26/22 21:41 Oxygen Delivery Me thod Room Air 12/26/22 21:41 MDM - Fall Medical Decision Making Patient was seen earlier today for a fall and diagnosed with a UTI and eventually discharged home. Patient did not want to stay at that time EMS was called for lift assist and found her altered. Patient was brought back to the ER. Dr. Mao was consulted for possible admission due to altered mental status. Dr. Mao is putting in orders and agreed for admission to [facility]. Differential Diagnosis Unlikely syncope, dislocation of shoulder region, fracture of wrist, compression fracture, concussion with loss of consciousness or concussion without loss of consciousness Medical Records I reviewed the patient's medical records. Lab Data I reviewed the patient's lab results. Laboratory Results POC Glucose 112 mg/dL (70-110) H 12/26/22 21:48 No radiology studies performed this visit Discharge Plan Discharge Patient Disposition: Admitted As Inpatient Clinical Impression: Altered mental status, Fall, Urinary tract infection Condition: Stable Prescriptions: No Action sertraline [Zoloft] 100 mg Tablet 100 mg PO BID potassium chloride 20 mEq tablet extended release 20 meq PO DAILY Qty: 20 0RF atorvastatin 40 mg Tablet 40 mg PO DAILY Tylenol 325 mg Tablet 650 mg PO Q4H PRN (Reason: Pain) ropinirole 1 mg Tablet 1 mg PO TID promethazine 25 mg Suppository 25 mg AK Q6H PRN (Reason: Nausea And Vomiting) sumatriptan succinate 50 mg Tablet See Rx Instructions .ROUTE .COMPLEX Rx Instructions: 50mg po every 24 hours as needed for migraine (may repeat dose after 2 hours up to a max of 200mg in 24 hours) Aspir-81 81 mg Tablet,Delayed Release (Dr/Ec) 81 mg PO DAILY Milk of Magnesia 400 mg/5 mL Suspension 30 ml PO DAILY PRN (Reason: Constipation) Dulcolax (bisacodyl) 10 mg Suppository 10 mg AK DAILY PRN (Reason: Constipation) pantoprazole 40 mg Tablet,Delayed Release (Dr/Ec) 40 mg PO DAILY promethazine 25 mg Tablet 25 mg PO Q6H PRN (Reason: Nausea And Vomiting) levothyroxine 150 mcg Tablet 150 mcg PO DAILY Fleet Enema 19-7 gram/118 mL Enema 118 ml AK DAILY PRN (Reason: Constipation) gabapentin 300 mg Capsule 300 mg PO TID metoclopramide HCl 10 mg Tablet 10 mg PO Q8H PRN (Reason: Nausea And Vomiting) oxycodone 5 mg Tablet 5 mg PO Q6H PRN (Reason: Pain) Eliquis 5 mg Tablet 5 mg PO BID Macrobid 100 mg capsule 100 mg PO Q12H 10 Days Qty: 20 0RF Rx Instructions: must administer with a meal/food Referrals: Marcia Kaufman MD [Primary Care Provider] - Coding Level of Care Code ED 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
[2022-12-26 22:01] VITALS: BP 105/77; PULSE 108; RESP 24
--- NOTE | 2022-12-26 22:09 | XRR_ITS ---
PROCEDURE INFORMATION: Exam: XR Chest Exam date and time: 12/26/2022 10:17 PM Age: 67 years old Clinical indication: Other: Eval for pneu; Additional info: Evaluate for pneumonia TECHNIQUE: Imaging protocol: Radiologic exam of the chest. Views: 1 view. COMPARISON: CR XR cervical spine 3V* [id number] 12/19/2022 7:51 AM FINDINGS: Tubes, catheters and devices: Implantable loop recorder device projects over the left chest. Lungs: Lungs are clear. Pleural spaces: No pleural effusion. No pneumothorax. Heart/Mediastinum: Normal cardiomediastinal silhouette. 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 XR/XR chest 1V portable [id number] IMPRESSION: No acute findings.
--- NOTE | 2022-12-26 22:09 | CTR_ITS ---
PROCEDURE INFORMATION: Exam: CT Head Without Contrast Exam date and time: 12/26/2022 10:22 PM Age: 67 years old Clinical indication: Injury or trauma; Blunt trauma (contusions or hematomas); Patient HX: Fall today; Additional info: Evaluate for bleeding TECHNIQUE: Imaging protocol: Computed tomography of the head without contrast. Radiation optimization: All CT scans at this facility use at least one of these dose optimization techniques: automated exposure control; mA and/or kV adjustment per patient size (includes targeted exams where dose is matched to clinical indication); or iterative reconstruction. REPORTING DATA: Count of CT and Cardiac NM exams in prior 12 months: This patient has received [address] and 0 known cardiac nuclear medicine studies in the 12 months prior to the current study. COMPARISON: CT head wo con* [id number] 12/26/2022 2:01 PM RADIATION DOSE METRICS: Total DLP (mGy-cm): 1115.38 FINDINGS: Brain: No acute intracranial hemorrhage. No mass effect or midline shift. Basal cisterns are patent. Normal franklin-white matter differentiation. Scattered patchy periventricular and subcortical white matter hypodensities likely representing chronic small vessel ischemic change. Cerebrovascular calcifications are present. Cerebral ventricles: No ventriculomegaly. Paranasal sinuses: Visualized sinuses are unremarkable. Mastoid air cells: Visualized mastoid air cells are clear. Orbital cavities: Post bilateral cataract lens replacement. Bones/joints: No acute calvarial fracture. Soft tissues: Unremarkable. CT/CT head wo con* [id number] IMPRESSION: No acute intracranial findings.
--- NOTE | 2022-12-26 22:10 | ECG_ITS ---
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 Measurements Intervals [place] Rate: 105 P: 65 [place]: 156 QRS: 70 QRSD: 86 T: 49 QT: 350 QTc: 464 Interpretive Statements SINUS TACHYCARDIA WITH OCCASIONAL VENTRICULAR PREMATURE COMPLEXES POSSIBLE LEFT ATRIAL ENLARGEMENT [-0.1mV P-WAVE IN V1/V2] NONSPECIFIC ST & T-WAVE ABNORMALITY ABNORMAL RHYTHM ECG Compared to ECG 12/26/2022 14:14:41 Ventricular premature complex(es) now present Possible ischemia no longer present T-wave abnormality still present Electronically Signed On 12-27-2022 7:41:35 CDT by William Mcguire M.D. [id number]
[2022-12-26 22:30] VITALS: BP 111/80; PULSE 103
[2022-12-26 22:55] LABS: Basophils % 0.2 %; Hematocrit 28.2 % (36-47); Lymphocytes # 0.8 10^3/uL (0.8-4.8); Lymphocytes % 7.2 %; Mean Corpuscular HGB Conc 33.7 g/dL (30-55); Mean Corpuscular Hemoglobin 32.1 pg (27-33); Mean Corpuscular Volume 95.3 fl (85-98); Mean Platelet Volume 8.8 fL (7.4-10.4); Monocytes # 0.5 10^3/uL (0.2-0.9); Monocytes % 4.4 %; Neutrophils # 9.62 10^3/uL (1.8-7.7); Neutrophils % 87.1 %; Nucleated Red Blood Cells % 0.2 %; Platelet Count 198 10^3/cmm (157-399); Red Blood Count 2.96 10^6/uL (3.85-5.65); Red Cell Distribution Width 16.1 % (12.1-15.1); White Blood Count 11.05 10^3/uL (3.29-11.43)
[2022-12-26 23:00] VITALS: BP 126/85; PULSE 102; RESP 27; O2SAT 98
[2022-12-26 23:08] LABS: D Dimer 1.21 ug/mLFEU (0-0.59)
[2022-12-26 23:10] LABS: Ammonia 17 umol/L (11-51)
[2022-12-26 23:12] LABS: Lactic Sepsis W/Reflex 1.5 mmol/L (0.5-2.2)
[2022-12-26 23:15] LABS: Troponin(5th) Baseline 38 ng/L (0-10)
[2022-12-26 23:22] LABS: Alanine Aminotransferase 20 U/L (0-33); Albumin Level 3.7 g/dL (3.5-5.2); Alkaline Phosphatase 161 U/L (35-105); Anion Gap 19.2 (5-19); Aspartate Amino Transferase 32 U/L (0-32); Blood Urea Nitrogen 18 mg/dL (8-23); Calcium 8.8 mg/dL (8.5-10.5); Carbon Dioxide 22 mmol/L (22-29); Chloride 100 mmol/L (98-107); Creatine Phosphokinase 55 U/L (26-192); Creatinine Clr Calc Pharmacy 56.7934; Globulin 3.4 g/dL (1.3-4.6); Glomerular Filtration Rate 62.1 mL/min (90-130); Glucose 93 mg/dL (65-115); Osmolality Calculated 288 mOsm/kg (285-295); Potassium 3.2 mmol/L (3.5-5.1); Sodium 138 mmol/L (136-145); Total Bilirubin 0.8 mg/dL (0.15-1.2); Total Protein 7.1 g/dL (6.6-8.7)
[2022-12-26 23:30] VITALS: BP 126/74; PULSE 102; RESP 22; O2SAT 95
[2022-12-27] VITALS (12 sets, daily range): BP systolic 99–131; BP diastolic 55–101; PULSE 94–103; RESP 14–25; TEMP 37–37.1; O2SAT 96–100
[2022-12-27 01:12] LABS: Troponin 5 2HR 34.64 ng/L (0-10)
[2022-12-27 01:22] LABS: Troponin 5 2HR Delta -3.36 ABS# (0-10)
--- NOTE | 2022-12-27 01:30 | ECG_ITS ---
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 Measurements Intervals [place] Rate: 96 P: 80 TN: 165 QRS: 75 QRSD: 89 T: 30 QT: 383 QTc: 485 Interpretive Statements SINUS RHYTHM ST DEVIATION AND MODERATE T-WAVE ABNORMALITY, CONSIDER LATERAL ISCHEMIA [-0.1+ mV T-WAVE IN I/aVL/V5/V6] ST DEVIATION AND MODERATE T-WAVE ABNORMALITY, CONSIDER INFERIOR ISCHEMIA [-0.1+ mV T-WAVE IN II/aVF] Compared to ECG 12/26/2022 22:13:33 Possible ischemia now present Sinus tachycardia no longer present Ventricular premature complex(es) no longer present T-wave abnormality still present Electronically Signed On 12-28-2022 8:03:30 CDT by Fer Lassiter M.D. [id number]
--- NOTE | 2022-12-27 02:36 | USCV_ITS ---
Chrissy Pantoja Age: 67 Gender: F : 1955 Exam Date: 12/27/2022 02:56 Ordering Phys: Jennifer Mao MD Technologist: MAR YJANE Exam Location: [facility] [place] Indication: history of AFIB / CHF. BP: 129 / 101 HR: 102 Rhythm: mostly Atrial fibrillation with some strings sinus Technical Quality: Adequate MEASUREMENTS (Male / Female) Normal Values 2D ECHO LV Diastolic Diameter PLAX 3.5 cm 4.2 - 5.9 / 3.9 - 5.3 cm LV Systolic Diameter PLAX 2.6 cm IVS Diastolic Thickness 1.4 cm 0.6 - 1.0 / 0.6 - 0.9 cm IVS Systolic Thickness 1.5 cm LVPW Diastolic Thickness 1.5 cm 0.6 - 1.0 / 0.6 - 0.9 cm LVPW Systolic Thickness 1.3 cm LVOT Diameter 1.8 cm LV Ejection Fraction 2D Teich 50.3 % LV Ejection Fraction MOD 2C 74.7 % LV Ejection Fraction 2C AL 74.7 % LA Diameter 4.3 cm LA Width 3.4 cm LA Height 4.0 cm RA Width 3.1 cm RA Height 4.2 cm Aorta at Sinotubular Diameter 2.6 cm IVC Diameter 1.3 cm M-MODE Aortic Annulus Diameter 3.5 cm LA Ao Ratio MM 1.5 DOPPLER AV Peak Velocity 137.0 cm/s LVOT Peak Velocity 99.0 cm/s AV Area Cont Eq vti 2.1 cm squared AV Area Cont Eq pk 1.8 cm squared MV Peak Velocity 106.0 cm/s MV Area PHT 4.3 cm squared MV E' Velocity 63.5 cm/s Mitral E to MV E' Ratio 14.7 Mitral E to LV E' Lateral Ratio 15.1 Mitral E to LV E' Septal Ratio 14.6 TR Peak Velocity 208.0 cm/s TR Peak Gradient 17.3 mmHg TV Peak E Velocity 44.0 cm/s Right Atrial Pressure 5.0 mmHg Pulmonary Artery Systolic Pressu 22.3 mmHg PV Peak Velocity 113.0 cm/s RV Acceleration Time 0.1 s RV Ejection Time 0.3 s RV AcT/ET 0.4 FINDINGS Left Ventricle Mild diffuse hypokinesia of the septum and the anteroseptal segments. LV ejection fraction around 50 to 55% Right Ventricle The right ventricle is normal in size and function. Right Atrium The right atrium is normal in size. Left Atrium Mildly increased left atrial size. 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 Mitral Valve Thickened mitral valve. Aortic Valve Thickened aortic valve. Tricuspid Valve No gross abnormalities noted.trace tricuspid valve regurgitation. Pulmonic Valve Pulmonic valve not well visualized. Pericardium No pericardial effusion. Aorta Normal ascending aorta dimension. IVC Normal inferior vena cava. CONCLUSIONS Mild diffuse hypokinesia of the septum and the anteroseptal segments. LV ejection fraction around 50 to 55%. The right ventricle is normal in size and function. Mildly increased left atrial size. 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 Thickened aortic and mitral valves. No significant stenotic or regurgitant lesions Trace tricuspid valve regurgitation. There is no pericardial effusion. There are no intracardiac masses. Estimated pulmonary artery peak systolic pressure of 22 mmHg. No similar previous studies are available for comparison Dr Fer Lassiter MD FACC (Electronically Signed) Final Date: 27 December 2022 21:26 S
--- NOTE | 2022-12-27 02:44 | PM.HP ---
Providers/Chief Complaint Admitting Physician: Jennifer Mao MD Primary Care Provider: Mracia Kaufman MD Chief Complaint: AMS History of Present Illness History is obtained by talking to patient's Goldy Alcantara. Patient is unable to participate in any history taking due to altered mental status. Chrissy Pantoja is a 67 year old female with a past medical history of thyroid malignancy for which she was treated with radionuclide therapy per description by , per him this resulted in multiorgan failure about 8 years ago. States that she was unable to get a thyroidectomy due to her underlying heart conditions. He states that patient has chronic atrial fibrillation and also CHF which precluded her from getting the surgery. she has a h/o migraines. Patient has been gradually deteriorating over the course of past 6 to 8 weeks. Patient and her originally lived in [place] and recently relocated to [place]. They are new to this area and are yet to establish with a primary care physician. He states that on the drive over from [place] [facility], patient got acutely sick while they were in [place]. She had an episode of emesis followed by a fall which resulted in soft tissue facial injuries. She appears to have recovered from this episode eventually. She has a history of chronic low backache and gait instability owing to what appears to be osteomyelitis of the great toe resulting in amputation around 2021. Chronic low backache appears to be a more chronic process process. Around 6 weeks ago, patient had an episode of unresponsiveness where and her heart rate dropped down to 30s and she had witnessed desaturation down to 40%. Typically patient wears 3 to 4 L of supplemental O2 at all times. She was taken by EMS to [facility] where she remained admitted for approximately 1 month and reports that she had some kind of back surgery. He does not know the exact details of what kind of procedures were performed or what the indication was. Review of records from our ED shows that patient was here on November 07, 2022 with complaints of back pain and was diagnosed with strain of the lumbar region for which she received prescriptions for prednisone and tizanidine and NSAIDs. There were no signs of cauda equina at that point. Unable to find any imaging from this date. After her admission at [facility] she was discharged to [facility] from where she was discharged this week. She was also in the ER on December 19, 2022 after having sustained a fall at the [facility]. CT head and CT C-spine were normal. Patient states that ever since returning from the [place] [facility] patient has been confused and disoriented, which is not her baseline. He states that over the past 6 months patient has been experiencing some degree of hallucinations, seeing people that are not in the home, misplacing her jewelry but then claiming that it was stolen etc. She has exhibited some paranoid behavior over the past 6 months. She has never formally been diagnosed with dementia or other psychiatric illness apart from depression. 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 Today at home she continued to be increasingly disoriented, did not know how to get in a car, while attempting to get in a car to come to the hospital she fell. states that he is unable to care for her appropriately given her overall worsening state. While at [place], she was alert awake and oriented at all times. Therefore this alteration in mental status does appear to be new. He states he was she was hypoxic at home today. He is uncertain if she has had any fevers. She was in the emergency room earlier today after sustaining a fall, she was noted to be comfortable. She was recommended observation but apparently she declined and was discharged home with oral antibiotics for her UTI. Review of Systems General: Reports: ROS unobtainable due to mental status Medications/Allergies Home Medications Medication Instructions Recorded Confirmed Last Taken Type potassium chloride 20 mEq 20 meq PO DAILY #20 tabs 12/14/22 12/27/22 Unknown Rx tablet,extended release sertraline 100 mg tablet (Zoloft) 100 mg PO BID 12/14/22 12/27/22 Unknown History acetaminophen 325 mg tablet 650 mg PO Q4H PRN Pain 12/19/22 12/27/22 Unknown History (Tylenol) apixaban 5 mg tablet (Eliquis) 5 mg PO BID 12/19/22 12/27/22 Unknown History aspirin 81 mg tablet,delayed 81 mg PO DAILY 12/19/22 12/27/22 Unknown History release atorvastatin 40 mg tablet 40 mg PO DAILY 12/19/22 12/27/22 Unknown History bisacodyl 10 mg rectal suppository 10 mg PA DAILY PRN Constipation 12/19/22 12/27/22 Unknown History (Dulcolax (bisacodyl)) gabapentin 300 mg capsule 300 mg PO TID 12/19/22 12/27/22 Unknown History levothyroxine 150 mcg tablet 150 mcg PO DAILY 12/19/22 12/27/22 Unknown History magnesium hydroxide 400 mg/5 mL 30 ml PO DAILY PRN Constipation 12/19/22 12/27/22 Unknown History oral suspension (Milk of Magnesia) metoclopramide HCl 10 mg tablet 10 mg PO Q8H PRN Nausea And 12/19/22 12/27/22 Unknown History Vomiting oxycodone 5 mg tablet 5 mg PO Q6H PRN Pain 12/19/22 12/27/22 Unknown History pantoprazole 40 mg tablet,delayed 40 mg PO DAILY 12/19/22 12/27/22 Unknown History release promethazine 25 mg rectal 25 mg PA Q6H PRN Nausea And 12/19/22 12/27/22 Unknown History suppository Vomiting promethazine 25 mg tablet 25 mg PO Q6H PRN Nausea And 12/19/22 12/27/22 Unknown History Vomiting ropinirole 1 mg tablet 1 mg PO TID 12/19/22 12/27/22 Unknown History sodium phosphates 19 gram-7 118 ml PA DAILY PRN Constipation 12/19/22 12/27/22 Unknown History gram/118 mL enema (Fleet Enema) sumatriptan succinate 50 mg tablet See Rx Instructions .Route .COMPLEX 12/19/22 12/27/22 Unknown History nitrofurantoin 100 mg PO Q12H 10 days #20 caps 12/26/22 12/27/22 Unknown Rx monohydrate/macrocrystals 100 mg capsule (Macrobid) Allergies Allergy/AdvReac Type Severity Reaction Status Date / Time morphine Allergy ADR-Vomitin Verified 12/26/22 21:57 g PFSH Acute PFSH: Medical History (Updated 12/27/22 @ 05:00 by Jennifer Mao MD) Atrial fibrillation Chronic anticoagulation Hyperlipidemia Hypothyroidism Recurrent falls Thyroid cancer Vitals/I&O/Wt Last Vital Signs Temp 98.8 F 12/27/22 01:28 Pulse 98 12/27/22 01:28 Resp 19 H 12/27/22 01:28 BP 129/101 12/27/22 01:28 Pulse Ox 98 12/27/22 01:28 O2 Del Method Room Air 12/27/22 01:32 Weight last 48 hrs Weight 63.503 kg Physical Exam Narrative: General: Confused and disoriented, only able to tell me her name at this time. HEENT: PERRLA, pupils bilaterally equal and reactive, pallors not present Chest: Normal vesicular breath sounds, no added sounds, equal good air entry bilaterally CVS: S1-S2 irregular Abdomen: Soft, nontender, no organomegaly, bowel sounds present Neuro: No focal deficits, moving all extremities Extremities: Status post amputation of the right great toe healed over well. Data 12/26/22 22:41 12/26/22 22:41 Micro: Microbiology 12/26/22 22:41 Blood Culture - Preliminary Blood SPECIMEN COLLECTED 12/26/22 22:41 Blood Culture - Preliminary Blood SPECIMEN COLLECTED A&P Assessment and plan (1) Altered mental status: It appears Ms. Norwood has had some intermittent hallucinations and paranoia over the last 6 months, however her currently encephalopathic state appears to be new per description by . Most recently when she was at the [facility] [place] she was at her baseline mentation but since returning home earlier this week she has been noted to be confused and disoriented at home. Because of this AMS is not entirely clear at this time. We will repeat CT of her head since she has sustained an additional fall after returning home this afternoon, will assess for any bleeding given that patient is on anticoagulation with Eliquis at home. Check TSH free T3 and T4 level given her past history of thyroid cancer and radionuclide treatment Check ammonia level Urine drug screen positive for benzodiazepines, has been denies any IV drug use. Check Ethyl alcohol level. Vitamin b1, B12 folate to be check additionally; patient is noted to have cheilosis around her mouth; per husabnd s she has had an extremely poor appetite over the past month and has been only eating popsicles and ice cream. Has had no fever recently. She is complaining of headache currently. Has a history of migraine disorder with status migrainosus however reports she is not altered with prior episodes of migraine. No history of seizure disorder. Acute metabolic encephalopathy as a complication of acute cystitis remains a possibility. Check sepsis labs including stat CBC CMP blood cultures and urine cultures. Chec CXR given reported hisoty of hypoxia at home. less likely PE given she is on chronic a/c Eliquis Hold gabapentin and zoloft for now Qualifiers: Altered mental status type: disorientation Qualified Code(s): R41.0 - Disorientation, unspecified (2) Urinary tract infection: Start empiric antibiotic coverage with piperacillin/tazobactam after drawing blood cultures Urine culture awaited Qualifiers: Hematuria presence: with hematuria Urinary tract infection type: acute cystitis Qualified Code(s): N30.01 - Acute cystitis with hematuria (3) Recurrent falls: This appears to be a chronic problem dating back several years. attributes this to gait instability and chronic low backache but does not know the exact cause for sure. Patient recently was admitted at [facility] and per underwent some kind of intervention for her back. I do not see any obvious scars on exam today, will obtain these prior records. There is some bruising noted over her back, will obtain x-ray her spine to evaluate for any bony injuries. Check EKG and troponin series. Baseline troponin obtained earlier today was showing ST segment depression in leads III V4 through V6. Unknown chronicity. Patient's reports a past history of COPD and CHF. Do not have a recent echocardiogram on file. Given her recurrent falls, cannot rule out possible syncopal episodes, will check echocardiogram. Check orthostatics once mentation is improved and patient able to follow commands to perform orthostatics. Telemetry monitoring (4) Thyroid cancer: Past history of the same. Check TSH free T3 and T4 today (5) Acute UTI: As above (6) Atrial fibrillation: Currently rate controlled. Baseline on chronic anticoagulation with Eliquis, will use Lovenox on her inpatient stay currently. Attestations Medical Necessity Statement*: Greater than 2 midnight admission is anticipated for evaluation of altered mental status, acute cystitis, need for IV antibiotics Coding Level of Care Code Acute Code for Chg Fwd High MDM includes number and complexity of problems actively addressed during encounter, amount and/or complexity of data reviewed/ordered and described risk of complication, morbidity or mortality of management as documented Diagnoses Altered mental status R41.0 Altered mental status type: disorientation Urinary tract infection N30.01 Hematuria presence: with hematuria Urinary tract infection type: acute cystitis Recurrent falls R29.6 Thyroid cancer C73 Acute UTI N39.0 Atrial fibrillation I48.91
[2022-12-27 03:13] LABS: HIV 1 & 2 Antibody Non-Reactive (Non-Reactiv); HIV 1 & 2 Antigen Non-Reactive (Non-Reactiv)
[2022-12-27] MEDS: sodium chloride 0.9% 1,000 ML 75 ML IV ×2 (03:31→17:16)
[2022-12-27] MEDS: piperacillin-tazobactam 3.375 GM in sodium chloride 0.9% (plus) 50 ML IV ×2 (03:33→10:08)
[2022-12-27 03:35] LABS: Folate Level < 20.0 ng/mL (4.8-37.3)
[2022-12-27] MEDS: enoxaparin 100 mg/mL Syringe 60 MG SUBCUT ×2 (03:37→15:33)
[2022-12-27 03:42] LABS: Hepatitis A Antibody IgM Non-Reactive (Nonreactive); Hepatitis B Core AB, Total Non-Reactive (Nonreactive); Hepatitis B Surface AB 3.5 (11.5-1000); Hepatitis B Surface Antigen Non-Reactive (Nonreactive); Hepatitis C Virus Antibody Non-Reactive (Nonreactive)
--- NOTE | 2022-12-27 04:40 | ECG_ITS ---
[facility] Test Date: 2022-12-27 Pat Name: Chrissy Pantoja Department: Room: 112 Gender: Female Retrimmer: : 1955 Requested By: Jennifer Mao Order Number: [id number] Aurelio MD: Fer Lassiter M.D. Measurements Intervals [place] Rate: 94 P: 79 NV: 162 QRS: 72 QRSD: 94 T: 74 QT: 405 QTc: 507 Interpretive Statements SINUS RHYTHM MODERATE ST DEPRESSION [0.05+ mV ST DEPRESSION] Compared to ECG 12/27/2022 01:30:56 ST (T wave) deviation now present T-wave abnormality no longer present Possible ischemia no longer present Electronically Signed On 12-28-2022 8:03:58 CDT by Fer Lassiter M.D. [id number]
[2022-12-27 04:45] LABS: Adenovirus Not Detected (NOT DETECT); Chlamydia Pneumoniae Not Detected (NOT DETECT); Coronavirus 229E,HKU1,NL63,OC4 Not Detected (NOT DETECT); Human Metapneumovirus Not Detected (NOT DETECT); Human Rhinovirus/Enterovirus Not Detected (NOT DETECT); Influenza A Not Detected (NOT DETECT); Influenza A H1 Not Detected (NOT DETECT); Influenza A H1-2009 Not Detected (NOT DETECT); Influenza A H3 Not Detected (NOT DETECT); Influenza B Not Detected (NOT DETECT); Mycoplasma Pneumoniae Not Detected (NOT DETECT); Parainfluenza Virus Type 1 Not Detected (NOT DETECT); Parainfluenza Virus Type 2 Not Detected (NOT DETECT); Parainfluenza Virus Type 3 Not Detected (NOT DETECT); Parainfluenza Virus Type 4 Not Detected (NOT DETECT); Respiratory Syncytial Virus A Not Detected (NOT DETECT); Respiratory Syncytial Virus B Not Detected (NOT DETECT); SARS-COV-2 Not Detected (NOT DETECT)
--- NOTE | 2022-12-27 05:09 | XRR_ITS ---
PROCEDURE INFORMATION: Exam: XR Thoracic Spine Exam date and time: 12/27/2022 5:54 AM Age: 67 years old Clinical indication: Pain in thoracic spine; Without myelpathy or radiculopathy; Additional info: Evaluate for fracture TECHNIQUE: Imaging protocol: Radiologic exam of the thoracic spine. Views: 3 views. COMPARISON: CR XR cervical spine 3V* [id number] 12/27/2022 5:47 AM FINDINGS: Tubes, catheters and devices: Incidental implanted left chest loop recorder device. Bones/joints: Moderate severity leftward convex upper thoracic spine scoliosis. Demineralized bones. Multilevel vertebral augmentation in the midthoracic spine for treatment of prior compression fractures. Negative for acute fractures. No vertebral subluxation. Soft tissues: Unremarkable. XR/XR thoracic spine 2V [id number] IMPRESSION: Negative for acute thoracic spine fracture.
--- NOTE | 2022-12-27 05:09 | XRR_ITS ---
PROCEDURE INFORMATION: Exam: XR Cervical Spine Exam date and time: 12/27/2022 5:47 AM Age: 67 years old Clinical indication: Pain; Cervicalgia; Prior surgery; Surgery date: 6+ months; Surgery type: Thyroid; Additional info: Evaluate for fracture TECHNIQUE: Imaging protocol: Radiologic exam of the cervical spine. Views: 2 or 3 views. COMPARISON: CR XR cervical spine 3V* [id number] 12/19/2022 7:51 AM FINDINGS: Bones/joints: Negative for cervical spine fractures. Unremarkable cervical spine alignment.The cervical spine demonstrates marked degenerative changes at multiple levels. Diffuse facet joint arthropathy. Vertebral endplate osseous spurring. Soft tissues: Unremarkable. XR/XR cervical spine 3V* [id number] IMPRESSION: Negative for acute cervical spine pathology.
--- NOTE | 2022-12-27 05:09 | XRR_ITS ---
PROCEDURE INFORMATION: Exam: XR Lumbosacral Spine Exam date and time: 12/27/2022 5:58 AM Age: 67 years old Clinical indication: Low back pain; Additional info: Evaluate for fracture TECHNIQUE: Imaging protocol: Radiologic exam of the lumbosacral spine. Views: 2 or 3 views. COMPARISON: CR (CHEST, ) 12/27/2022 5:54 AM FINDINGS: Bones/joints: Osseous demineralization. Moderate to severe compression fracture deformity of L1 is age indeterminate. 50% height loss anteriorly. There is a milder severity vertebral compression fracture at T12 which is also age indeterminate. Slightly greater than 25% height loss anteriorly. No significant retropulsion is identified. Mild lumbar lordosis. Diffuse facet joint arthropathy changes. Moderate to severe disc height loss at L5-S1. Soft tissues: Unremarkable. Vasculature: Scattered abdominal aorta atherosclerotic. XR/XR lumbar spine 2-3V* [id number] IMPRESSION: Age indeterminate T12 and L1 vertebral body compression fractures.
[2022-12-27 05:11] LABS: Alcohol Level < 10 mg/dL (0-10); Troponin 5 6HR 33.54 ng/L (0-10); Troponin 5 6HR Delta -4.46 ng/L (0-12)
[2022-12-27] MEDS: lidocaine 1% 5 ML in potassium chloride premix 100 ML 26.25 ML IV (05:11)
[2022-12-27 05:26] LABS: Free T4 Free Thyroxine 1.54 ng/dL (0.82-1.77); T3 Free 1.7 PG/ML (2.0-4.4)
[2022-12-27 05:27] LABS: Vitamin B12 790 pg/mL (232-1245)
[2022-12-27 06:57] LABS: Glucose Urine UA Norm (Normal); Ketones Urine 1+ (Negative); Protein Urine Neg (Negative); Specific Gravity, Urine 1.015 (1.005-1.030); Urine Appearance Hazy (CLEAR); Urine Color Yellow (Yellow); pH Urine 6 (5-7)
[2022-12-27 06:58] LABS: Bilirubin Urine Neg (Negative); Blood Urine Neg (Negative); Leukocyte Esterase Urine 1+ (Negative); Nitrate Urine Negative (Negative); Urobilinogen Urine Norm (Negative)
[2022-12-27 07:32] LABS: RBC Urine 0-4 /hpf (0-2); Squamous Epithelial Cell Urine 0-4 /hpf (0-5); WBC Urine 15-25 /hpf (0-5)
[2022-12-27 07:33] LABS: Bacteria Urine TRACE /hpf; Fine Granular Casts Urine RARE /lpf; Hyaline Casts Urine 0-4 /lpf; Mucus Urine 1+ /hpf
[2022-12-27 07:34] LABS: Add Urine Culture? Yes
[2022-12-27] MEDS: quetiapine 25 mg Tablet PO (09:00)
[2022-12-27] MEDS: aspirin 81 mg EC Tablet PO (09:00)
[2022-12-27] MEDS: ropinirole 1 mg Tablet PO (09:00)
[2022-12-27] MEDS: atorvastatin 40 mg Tablet PO (09:00)
[2022-12-27] MEDS: pantoprazole DR 40 mg Tablet PO (09:00)
[2022-12-27] MEDS: levothyroxine 150 mcg Tablet PO (09:01)
[2022-12-27] MEDS: HYDROmorphone 1 mg/mL INJ 1 mL 0.4 MG IVP (10:09)
--- NOTE | 2022-12-27 10:30 | PC.CHAP ---
Pastoral Care Encounter/Spiritual Assessment Type of Contact [] Declined burlapper visit [] Patient/Family/Request visit [] Outpatient visit [] Follow-up visit [] Physician referral [] Code/Alert [x] Routine visit [] Staff referral [] Actively dying [] Patient sleeping [] Family support [] [] Out of room [] Palliative care [] [] Receiving care in room [] Pre-surgical visit [] Trauma [] Long length of stay [] ICU visit [] Other: Relational/Emotional Strength [] Patient feels connected with others/family/visitors/staff [] Distress [] Loneliness/isolation [] Abandonment Spirituality of Patient [] Person of Louann [] Attends Anabaptist of their Louann [x] Believes in Prayer [] Reads Bible or Jehovah'S Witness materials [] There are Spiritual issues to be addressed Business Performance Analyst Interventions [x] Prayer [x] Active listening [] Non-anxious presence [] Spiritual/emotional support [] Crisis/trauma care [] Spiritual counseling [] Bereavement support [] Provided bereavement packet [] Provided Bible/devotional materials [] Provided toy/stuffed animal, coloring book to patient or family member [] Provided Communion [] Anointing/[place] [] Salvation [] Completed spiritual assessment [] Other: Impact on Illness or Injury [] Angry [] Fearful [] Anxious [] Often cries [] Exhaustion [] Unable to work [] Unable to attend denominational [] Unable to walk/stand [] Unable to read [] Unable to drive [] Unable to eat/drink [] Unable to sleep [] Unable to be with family [] Patient intubated [] Other: Summary Time spent with patient 10 min
--- NOTE | 2022-12-27 11:45 | PM.MISC ---
Miscellaneous Note Note: Patient is restless in her bed We will to move her extremities Able to answer my questions appropriately Endorsing drinking alcohol daily basis however not able to give me details She knows her name, date of and name of the president Multiple skin tattoos on her body Goiter/exophthalmos Clinically dehydrated Restless Assessment and plan Start high-dose thiamine 500 mg IV for 5 days Start folic acid I will give her Seroquel 25 mg We will touch base with her D-dimer is abnormal 1.2 Potassium to be replenished TSH is low with normal free T4 Signs of UTI
--- NOTE | 2022-12-27 11:48 | MR_ITS ---
WS: [id number] MRI BRAIN WITHOUT CONTRAST HISTORY: Encephalopathy COMPARISON: Noncontrast CT head 12/26/2022. TECHNIQUE: Diffusion imaging, multiplanar T1, T2 and FLAIR imaging obtained. No evidence for acute infarct or hemorrhage. Ricardo-white matter differentiation is normal. Mild bilateral cerebral and cerebellar atrophy. Moderate small vessel ischemic disease in the suprate ntorial white matter. Symmetric distribution. Mild bilateral hippocampal atrophy. Ventricles and extra-axial spaces are normal. No inferior displacement of cerebellar tonsils. The sella turcica and pituitary gland are unremarkabl e. Dural venous sinuses and [place] of [place] demonstrate no abnormality on this unenhanced studies. Paranasal sinuses: Clear. Mastoid air cells: Normal. Calvarium and scalp: Intact. IMPRESSION: 1. Normal diffusion sequence. No acute infarct. 2. Mild atrophy and moderate small vessel ischemic disease. 3. No hydrocephalus.
[2022-12-27] MEDS: doxycycline 100 mg Tablet PO ×2 (15:33→17:16)
--- NOTE | 2022-12-27 21:52 | PC.NURSE ---
Bedtime dose of seraquel not given as patient does not follow commands and would be an aspiation risk.
[2022-12-28] MEDS: enoxaparin 60 mg/0.6 mL Syringe SUBCUT (03:46)
[2022-12-28 03:54] VITALS: BP 128/71; PULSE 102; RESP 22; TEMP 36.8; O2SAT 97
[2022-12-28 05:04] LABS: Basophils % 0.3 %; Eosinophils % 0.4 %; Hematocrit 30.5 % (36-47); Lymphocytes # 1.2 10^3/uL (0.8-4.8); Lymphocytes % 18.4 %; Mean Corpuscular HGB Conc 32.5 g/dL (30-55); Mean Corpuscular Hemoglobin 31.7 pg (27-33); Mean Corpuscular Volume 97.8 fl (85-98); Mean Platelet Volume 8.7 fL (7.4-10.4); Monocytes # 0.3 10^3/uL (0.2-0.9); Monocytes % 4.8 %; Neutrophils # 5.01 10^3/uL (1.8-7.7); Neutrophils % 75.2 %; Nucleated Red Blood Cells % 0 %; Platelet Count 170 10^3/cmm (157-399); Red Blood Count 3.12 10^6/uL (3.85-5.65); Red Cell Distribution Width 16.3 % (12.1-15.1); White Blood Count 6.67 10^3/uL (3.29-11.43)
[2022-12-28 05:23] LABS: Alanine Aminotransferase 19 U/L (0-33); Alkaline Phosphatase 138 U/L (35-105); Anion Gap 17.1 (5-19); Aspartate Amino Transferase 30 U/L (0-32); Blood Urea Nitrogen 9 mg/dL (8-23); Calcium 8.3 mg/dL (8.5-10.5); Carbon Dioxide 21 mmol/L (22-29); Chloride 106 mmol/L (98-107); Globulin 3.3 g/dL (1.3-4.6); Glomerular Filtration Rate 122.3 mL/min (90-130); Glucose 59 mg/dL (65-115); Magnesium 1.6 mg/dL (1.7-2.3); Osmolality Calculated 288 mOsm/kg (285-295); Potassium 3.1 mmol/L (3.5-5.1); Sodium 141 mmol/L (136-145); Total Bilirubin 0.6 mg/dL (0.15-1.2); Total Protein 6.3 g/dL (6.6-8.7)
[2022-12-28 05:25] LABS: Ammonia 21 umol/L (11-51)
[2022-12-28 05:43] LABS: Glucose Point of Care 58 mg/dL (70-110)
[2022-12-28] MEDS: dextrose 50% syringe 50 mL IVP (05:51)
[2022-12-28 08:00] VITALS: BP 128/71; PULSE 102; RESP 22; TEMP 36.8
--- NOTE | 2022-12-28 09:19 | P.DS_ITS ---
Discharge Providers Date of Admission: 12/26/22 22:26 Date of Discharge: December 28, 2022 Attending Provider at Admission: Jennifer Mao MD Attending Provider at Discharge: Tiny Padilla MD Primary Care Provider: Anton Martin MD Diagnoses at Discharge Discharge Diagnosis (1) Altered mental status: Status: Acute Qualifiers: Altered mental status type: disorientation Qualified Code(s): R41.0 - Disorientation, unspecified (2) Urinary tract infection: Status: Acute Qualifiers: Hematuria presence: with hematuria Urinary tract infection type: acute cystitis Qualified Code(s): N30.01 - Acute cystitis with hematuria (3) Recurrent falls: Status: Acute (4) Thyroid cancer: Status: Inactive (5) Acute UTI: Status: Acute (6) Atrial fibrillation: Status: Acute Reason for Visit Reason for Visit: [facility] Hospital Course Hospital Course 67-year-old female who has moved from [place] with her to [place], she was at [facility] for her back pain, as per the she had some kind of intervention he is not sure about name of the procedure whether it was lumbar puncture or anything else, on physical exam there is no scar at all on her back, we have requested records from [facility] which are still pending. Patient was altered with confusion at the time of admission patient was showing signs of akathisia, restlessness, nonpurposeful movement of her extremities, I discontinued her metoclopramide, ropinirole give her Seroquel along IV antibiotics for her UTI which improved her agitation and restlessness. MRI head was requested because patient endorsed drinking rum on daily basis with Coke. She was put on high-dose of IV thiamine along folic acid. On 12/28 patient is resting comfortably in her bed I do not see any signs of choreoathetosis, she has stayed afebrile, hemodynamically stable, nonfocal neuro exam, she is able to answer my question appropriately Signs of dehydration slightly better. She has not vomiting or regurgitated food. As per the she has lost significant amount of weight in the past she had thyroid cancer which was removed. Patient has not appointment with Dr. Anton Martin tomorrow, I do believe her symptoms were related to polypharmacy and manic episode due to dopamine agonist medications, I will discharge her on antibiotic for UTI, Seroquel, thiamine and folic acid. Physical Exam Narrative: Nonfocal neuro exam GCS 15 S1, S2 Doing well on room air Pleasant and cooperative Signs of dehydration present but improving No signs of meningitis Urinary Catheter Management: Soriano: Cath Placed During This Visit: yes Reason for Continuing Indwelling Catheter: Accurate Measurement of Urinary Output in Critically Ill Patients Urinary Catheter Date of Insertion: 12/27/22 Urinary Catheter Time of Insertion: 03:00 Discharge Data Studies Completed and Pending Completed Studies During Hospitalization Category Date Time Status CT head wo con* [id number] Stat Cat Scan 12/26/22 22:09 Completed CXRP [XR chest 1V portable [id number]] Stat Exams 12/26/22 22:09 Completed XR cervical spine 3V* [id number] Routine Exams 12/27/22 05:09 Completed XR lumbar spine 2-3V* [id number] Routine Exams 12/27/22 05:09 Completed XR thoracic spine 2V [id number] Routine Exams 12/27/22 05:09 Completed MR head wo con* [id number] Routine MRI 12/27/22 11:48 Completed CV. echo complete* [id number] Routine Ultrasound 12/27/22 02:36 Completed Pending at discharge Category Date Time Status Blood Culture Stat Lab 12/26/22 22:41 Results Urine Culture Routine Lab 12/27/22 01:45 Received Vitamin B1 (Thiamine),Blood Routine Lab 12/27/22 04:20 Received Radiology Impressions Chest X-Ray 12/26/22 22:09 IMPRESSION: No acute findings. Head CT 12/26/22 22:09 IMPRESSION: No acute intracranial findings. Cervical Spine X-Ray 12/27/22 05:09 IMPRESSION: Negative for acute cervical spine pathology. Lumbar Spine X-Ray 12/27/22 05:09 IMPRESSION: Age indeterminate T12 and L1 vertebral body compression fractures. Thoracic Spine X-Ray 12/27/22 05:09 IMPRESSION: Negative for acute thoracic spine fracture. ADDENDUM: 12/27/22 0659 In addition to the previously treated midthoracic spine fractures, there are age indeterminate moderate to severe compression fracture deformities of both T12 and L1 vertebral bodies which are of indeterminate age without comparison imaging available. Correlation for focal symptoms necessary. Laboratory Results WBC 6.67 10^3/uL (3.29-11.43) 12/28/22 04:39 RBC 3.12 10^6/uL (3.85-5.65) L 12/28/22 04:39 Hgb 9.90 g/dL (11.27-16.99) L 12/28/22 04:39 Hct 30.5 % (36-47) L 12/28/22 04:39 MCV 97.8 fl (85-98) 12/28/22 04:39 MCH 31.7 pg (27-33) 12/28/22 04:39 MCHC 32.5 g/dL (30-55) 12/28/22 04:39 RDW 16.3 % (12.1-15.1) H 12/28/22 04:39 Plt Count 170 10^3/cmm (157-399) 12/28/22 04:39 MPV 8.7 fL (7.4-10.4) 12/28/22 04:39 Neut % (Auto) 75.2 % 12/28/22 04:39 Lymph % (Auto) 18.4 % 12/28/22 04:39 [place] % (Auto) 4.8 % 12/28/22 04:39 Eos % (Auto) 0.4 % 12/28/22 04:39 Baso % (Auto) 0.3 % 12/28/22 04:39 Neut # (Auto) 5.01 10^3/uL (1.8-7.7) 12/28/22 04:39 Lymph # (Auto) 1.2 10^3/uL (0.8-4.8) 12/28/22 04:39 [place] # (Auto) 0.3 10^3/uL (0.2-0.9) 12/28/22 04:39 Eos # (Auto) 0.0 10^3/uL (0.0-0.8) 12/28/22 04:39 Baso # (Auto) 0.0 10^3/uL (0.0-0.1) 12/28/22 04:39 Nucleated RBC % (auto) 0 % 12/28/22 04:39 Nucleated RBCs # 0.0 /100WBC 12/28/22 04:39 D-Dimer 1.21 ug/mLFEU (0-0.59) H 12/26/22 22:41 Sodium 141 mmol/L (136-145) 12/28/22 04:39 Potassium 3.1 mmol/L (3.5-5.1) L 12/28/22 04:39 Chloride 106 mmol/L (98-107) 12/28/22 04:39 Carbon Dioxide 21 mmol/L (22-29) L 12/28/22 04:39 Anion Gap 17.1 (5-19) 12/28/22 04:39 BUN 9 mg/dL (8-23) 12/28/22 04:39 Creatinine 0.5 mg/dL (0.5-0.9) 12/28/22 04:39 GFR Calculation 122.3 mL/min (90-130) 12/28/22 04:39 Glucose 59 mg/dL (65-115) L 12/28/22 04:39 POC Glucose 58 mg/dL (70-110) L 12/28/22 05:39 Calculated Osmolality 288 mOsm/kg (285-295) 12/28/22 04:39 Lactic Acid 1.5 mmol/L (0.5-2.2) 12/26/22 22:41 Calcium 8.3 mg/dL (8.5-10.5) L 12/28/22 04:39 Magnesium 1.6 mg/dL (1.7-2.3) L 12/28/22 04:39 Total Bilirubin 0.6 mg/dL (0.15-1.2) 12/28/22 04:39 AST 30 U/L (0-32) 12/28/22 04:39 ALT 19 U/L (0-33) 12/28/22 04:39 Alkaline Phosphatase 138 U/L (35-105) H 12/28/22 04:39 Ammonia 21 umol/L (11-51) 12/28/22 04:39 Creatine Kinase 55 U/L (26-192) 12/26/22 22:41 Troponin T Baseline 38 ng/L (0-10) H 12/26/22 22:41 Troponin T 120 Minute 34.64 ng/L (0-10) H 12/27/22 00:37 Delta Troponin T -3.36 ABS# (0-10) L 12/27/22 00:37 Troponin T Hi Sens 6Hr 33.54 ng/L (0-10) H 12/27/22 04:20 Troponin T Hi Sens 6Hr Delta -4.46 ng/L (0-12) L 12/27/22 04:20 Total Protein 6.3 g/dL (6.6-8.7) L 12/28/22 04:39 Albumin 3.0 g/dL (3.5-5.2) L 12/28/22 04:39 Globulin 3.3 g/dL (1.3-4.6) 12/28/22 04:39 Vitamin B12 790 pg/mL (232-1245) 12/27/22 04:20 Folate < 20.0 ng/mL (4.8-37.3) 12/26/22 22:41 TSH 0.20 uIU/mL (0.27-4.20) L 12/26/22 22:41 Free T4 1.54 ng/dL (0.82-1.77) 12/27/22 04:20 Free T3 1.7 PG/ML (2.0-4.4) L 12/27/22 04:20 Urine Color Yellow (Yellow) 12/27/22 01:45 Urine Appearance Hazy (CLEAR) A 12/27/22 01:45 Urine pH 6 (5-7) 12/27/22 01:45 Ur Specific [place] 1.015 (1.005-1.030) 12/27/22 01:45 Urine Protein Neg (Negative) 12/27/22 01:45 Urine Glucose (UA) Norm (Normal) 12/27/22 01:45 Urine Ketones 1+ (Negative) H 12/27/22 01:45 Urine Blood Neg (Negative) 12/27/22 01:45 Urine Nitrate Negative (Negative) 12/27/22 01:45 Urine Bilirubin Neg (Negative) 12/27/22 01:45 Urine Urobilinogen Norm mg/dL (Negative) 12/27/22 01:45 Ur Leukocyte Esterase 1+ (Negative) H 12/27/22 01:45 Ur Microscopic Indic Cancelled 12/27/22 01:45 Urine RBC 0-4 /hpf (0-2) H 12/27/22 01:45 Urine WBC 15-25 /hpf (0-5) H 12/27/22 01:45 Ur Squamous Epith Cells 0-4 /hpf (0-5) H 12/27/22 01:45 Amorphous Sediment Not Reportable 12/27/22 01:45 Urine Bacteria Trace /hpf (NONE) 12/27/22 01:45 Hyaline Casts 0-4 /lpf H 12/27/22 01:45 Fine Granular Casts Rare /lpf 12/27/22 01:45 Urine Mucus 1+ /hpf 12/27/22 01:45 Nasal Influ A H1 2009 PCR Not detected (NOT DETECT) 12/27/22 02:45 Ethyl Alcohol < 10 mg/dL (0-10) 12/27/22 04:20 Adenovirus (PCR) Not detected (NOT DETECT) 12/27/22 02:45 C. pneumoniae DNA (PCR) Not detected (NOT DETECT) 12/27/22 02:45 Coronavirus 229E (PCR) Not detected (NOT DETECT) 12/27/22 02:45 Hepatitis A IgM Ab Non-reactive (Nonreactive) 12/26/22 22:41 Hep Bs Antigen Non-reactive (Nonreactive) 12/26/22 22:41 Hep Bs Antibody 3.5 (11.5-1000) L 12/26/22 22:41 Hep B Core Total Ab Non-reactive (Nonreactive) 12/26/22 22:41 Hepatitis C Antibody Non-reactive (Nonreactive) 12/26/22 22:41 HIV 1&2 Ab & HIV 1 Ag Non-reactive (Non-Reactiv) 12/26/22 22:41 HIV 1&2 Antibody Non-reactive (Non-Reactiv) 12/26/22 22:41 Human Metapneumovir PCR Not detected (NOT DETECT) 12/27/22 02:45 Influenza A (H1) PCR Not detected (NOT DETECT) 12/27/22 02:45 Influenza A (H3) PCR Not detected (NOT DETECT) 12/27/22 02:45 Influenza Type A (PCR) Not detected (NOT DETECT) 12/27/22 02:45 Influenza Type B (PCR) Not detected (NOT DETECT) 12/27/22 02:45 M. pneumoniae (PCR) Not detected (NOT DETECT) 12/27/22 02:45 Parainfluenza 1 (PCR) Not detected (NOT DETECT) 12/27/22 02:45 Parainfluenza 2 (PCR) Not detected (NOT DETECT) 12/27/22 02:45 Parainfluenza 3 (PCR) Not detected (NOT DETECT) 12/27/22 02:45 Parainfluenza 4 (PCR) Not detected (NOT DETECT) 12/27/22 02:45 RSV Type A (PCR) Not detected (NOT DETECT) 12/27/22 02:45 RSV Type B (PCR) Not detected (NOT DETECT) 12/27/22 02:45 Entero/Rhino (PCR) Not detected (NOT DETECT) 12/27/22 02:45 SARS-CoV-2 (PCR) Not detected (NOT DETECT) 12/27/22 02:45 Vitals Last Vital Signs Temp 98.3 F 12/28/22 08:00 Pulse 102 H 12/28/22 08:00 Resp 22 H 12/28/22 08:00 BP 128/71 12/28/22 08:00 Pulse Ox 97 12/28/22 03:54 O2 Del Method Room Air 12/28/22 03:54 O2 Flow Rate 2 12/27/22 08:00 Discharge Plan Discharge Patient Disposition: Home Condition: Stable Prescriptions: New thiamine HCl (vitamin B1) 100 mg tablet 100 mg PO DAILY Qty: 60 0RF levofloxacin 750 mg tablet 750 mg PO DAILY 7 Days Qty: 7 0RF folic acid 1 mg tablet 1 mg PO DAILY Qty: 60 0RF quetiapine [Seroquel] 25 mg tablet 25 mg PO BEDTIME Qty: 3 0RF Continued sertraline [Zoloft] 100 mg Tablet 100 mg PO BID atorvastatin 40 mg Tablet 40 mg PO DAILY acetaminophen [Tylenol] 325 mg Tablet 650 mg PO Q4H PRN (Reason: Pain) sumatriptan succinate 50 mg Tablet See Rx Instructions .ROUTE .COMPLEX Rx Instructions: 50mg po every 24 hours as needed for migraine (may repeat dose after 2 hours up to a max of 200mg in 24 hours) aspirin [Aspir-81] 81 mg Tablet,Delayed Release (Dr/Ec) 81 mg PO DAILY magnesium hydroxide [Milk of Magnesia] 400 mg/5 mL Suspension 30 ml PO DAILY PRN (Reason: Constipation) bisacodyl [Dulcolax (bisacodyl)] 10 mg Suppository 10 mg MO DAILY PRN (Reason: Constipation) pantoprazole 40 mg Tablet,Delayed Release (Dr/Ec) 40 mg PO DAILY levothyroxine 150 mcg Tablet 150 mcg PO DAILY Fleet Enema 19-7 gram/118 mL Enema 118 ml MO DAILY PRN (Reason: Constipation) gabapentin 300 mg Capsule 300 mg PO TID oxycodone 5 mg Tablet 5 mg PO Q6H PRN (Reason: Pain) Eliquis 5 mg Tablet 5 mg PO BID Discontinued potassium chloride 20 mEq tablet extended release 20 meq PO DAILY Qty: 20 0RF ropinirole 1 mg Tablet 1 mg PO TID promethazine 25 mg Suppository 25 mg MO Q6H PRN (Reason: Nausea And Vomiting) promethazine 25 mg Tablet 25 mg PO Q6H PRN (Reason: Nausea And Vomiting) metoclopramide HCl 10 mg Tablet 10 mg PO Q8H PRN (Reason: Nausea And Vomiting) nitrofurantoin monohyd/m-cryst [Macrobid] 100 mg capsule 100 mg PO Q12H 10 Days Qty: 20 0RF Rx Instructions: must administer with a meal/food Discharge Orders: Discharge Order (Routine); Ordered 12/28/22 Ordered By: Tiny Padilla Referrals: Anton Martin MD [Primary Care Provider] - 12/29/22 1:30 pm Patient Instructions: Thiamine (By mouth) ([facility] Vitamin B1, Nature's..., Folic Acid (By mouth) (FA-8, [place], Folacin-800, Methylfolate), Levofloxacin (By mouth) (Levaquin, Levaquin Leva-miki), Quetiapine (By mouth) (Seroquel, Seroquel XR, Seroquel XR 14-Day..., Opioid Safety Discharge Attestations Time Spent in Discharge Care*: greater than 30 min Quality Metrics Clinical Quality Measures [ No reported AMI, CVA or VTE this stay] Coding Level of Care Code Acute Code for Chg Fwd Diagnoses Altered mental status R41.0 Altered mental status type: disorientation Urinary tract infection N30.01 Hematuria presence: with hematuria Urinary tract infection type: acute cystitis Recurrent falls R29.6 Thyroid cancer C73 Acute UTI N39.0 Atrial fibrillation I48.91
[2022-12-28] MEDS: doxycycline 100 mg Tablet PO (09:22)
[2022-12-28] MEDS: aspirin 81 mg EC Tablet PO (09:22)
[2022-12-28] MEDS: folic acid 1 mg Tablet PO (09:23)
[2022-12-28] MEDS: levothyroxine 150 mcg Tablet PO (09:23)
[2022-12-28] MEDS: pantoprazole DR 40 mg Tablet PO (09:23)
[2022-12-28] MEDS: dextrose 5%-ns + KCl 40 40 MEQ/1,000 ML BAG 75 MEQ IV (09:23)
[2022-12-28] MEDS: cefTRIAXone 1,000 MG in sodium chloride 0.9% (plus) 50 ML 100 MG IV (09:24)
[2022-12-28 10:49] VITALS: BP 94/55; PULSE 98; RESP 25
[2022-12-28 14:00] VITALS: PULSE 96
[2022-12-28 14:17] VITALS: BP 105/63; PULSE 96; RESP 18; O2SAT 98
[2022-12-28 16:23] VITALS: BP 105/63; PULSE 96; RESP 18; O2SAT 98
--- NOTE | 2022-12-28 17:08 | PC.NURSE ---
Discharge Note Patient discharged to [home] via [w/c to POV] accompanied by [spouse]. Discharge instructions reviewed with patient and/or loan representative. Mobile pharmacy medications and/or prescriptions provided. Belongings/home medications returned.
[2023-01-03 15:04] LABS: Vitamin B1 (Thiamine),Blood 38 nmol/L (78-185)
== END 2022-12-28 17:00 | disposition home health service (06) | DRG 690 ==
LOC: ER 22:12 → CSU 23:36
PROVIDERS: Admitting Provider Student in an Organized Health Care Education/Training Program; Emergency Provider Emergency Medicine; PCP Family Medicine Adult Medicine; Visit Provider Internal Medicine
DX: N30.01 Acute cystitis with hematuria (principal); F30.9 Manic episode, unspecified; I48.20 Chronic atrial fibrillation, unspecified; R29.6 Repeated falls; F10.90 Alcohol use, unspecified, uncomplicated; E86.0 Dehydration; Z85.850 Personal history of malignant neoplasm of thyroid; R41.82 Altered mental status, unspecified; T44.995A Adverse effect of other drug primarily affecting the autonomic nervous system, initial encounter; Z79.82 Long term (current) use of aspirin; Z79.891 Long term (current) use of opiate analgesic; Z79.01 Long term (current) use of anticoagulants; Z92.21 Personal history of antineoplastic chemotherapy; G89.29 Other chronic pain; M54.50 Low back pain, unspecified; R26.89 Other abnormalities of gait and mobility; Z99.81 Dependence on supplemental oxygen
CPT/HCPCS: 36415; 36416; 36430; 36569; 36573; 51702; 70450; 70551; 71045; 72040; 72070; 72100; 72125; 72146; 72170; 76000; 80048; 80053; 80074; 80306; 80307; 81001; 81003; 81015; 82140; 82274; 82550; 82607; 82746; 82962; 83036; 83605; 83735; 84100; 84145; 84295; 84425; 84439; 84443; 84481; 84484; 85014; 85018; 85025; 85378; 85610; 86140; 86705; 86706; 86709; 86803; 86850; 86900; 86920; 87040; 87077; 87086; 87186; 87324; 87340; 87426; 87449; 87486; 87493; 87581; 87633; 87806; 92523; 92610; 93005; 93306; 94664; 96361; 96365; 96367; 96372; 96374; 96375; 96376; 97116; 97161; 97167; 97530; 97535; 99285; C1751; J0690; J0696; J1100; J1170; J1650; J1720; J2060; J2543; J2704; J2710; J3010; J3370; J3411; J3475; J3480; J3490; J7030; J7040; J7042; J7120; J7799; P9016; Q3014

== ENCOUNTER 2022-12-29 14:19 | Inpatient (IN) | payer MEDICARE, SELFPAY ==
[2022-12-29] VITALS (13 sets, daily range): BP systolic 83–112; BP diastolic 49–76; PULSE 97–117; RESP 18–20; TEMP 36.3–37.3; O2SAT 93–98; BMI 24.2
--- NOTE | 2022-12-29 14:29 | ED_ITS ---
HPI - Altered Mental Status General: Chief Complaint: Fall Stated Complaint: ams Time Seen by Provider: 12/29/22 14:24 History of Present Illness: EMS reported that patient evidently fell off her front porch and was outside all night on the ground. Patient discharged from the hospital yesterday. See discharge summary below. Patient has innumerable number of bruises in various stages of healing. She has tremors. She has proptosis. She is confused. She will speak some but mostly mumbling. Surprisingly she was able to tell me the month and the year. However she is not able to tell me whether she ate this morning or what happened last night. She is not able to tell me how she got here or why. History is extremely limited; is not here Patient recently discharged on 12/28/22 (yesterday) with following d/c summary: 67-year-old female who has moved from [place] with her to [place], she was at [facility] for her back pain, as per the she had some kind of intervention he is not sure about name of the procedure whether it was lumbar puncture or anything else, on physical exam there is no scar at all on her back, we have requested records from [facility] which are still pending. ?Patient was altered with confusion at the time of admission patient was showing signs of akathisia, restlessness, nonpurposeful movement of her extremities, I discontinued her metoclopramide, ropinirole give her Seroquel along IV antibiotics for her UTI which improved her agitation and restlessness.? MRI head was requested because patient endorsed drinking rum on daily basis with Coke.? She was put on high-dose of IV thiamine along folic acid.? On 12/28 patient is resting comfortably in her bed I do not see any signs of choreoathetosis, she has stayed afebrile, hemodynamically stable, nonfocal neuro exam, she is able to answer my question appropriately Signs of dehydration slightly better.? She has not vomiting or regurgitated food.? As per the she has lost significant amount of weight in the past she had thyroid cancer which was removed.? Patient has not appointment with Dr. Anton Martin tomorrow, I do believe her symptoms were related to polypharmacy and manic episode due to dopamine agonist medications, I will discharge her on antibiotic for UTI, Seroquel, thiamine and folic acid. Review of Systems General: Reports: ROS unobtainable due to mental status PFS ED [facility]: Medical History (Updated 12/29/22 @ 16:54 by Rodri Matthews MD) Acute UTI Altered mental status Atrial fibrillation Chronic anticoagulation Fall Hyperlipidemia Hypothyroidism s/p thyroidectomy for thyroid CA Recurrent falls Thyroid cancer s/p thyroidectomy Urinary tract infection Physical Exam Narrative: Upon entering the room, there is a thin bruised appearing female who is mumbling. She appears to have proptosis. She is trembling. Upon uncovering her, she has not closed. There are bruises all over the front and back of her body in various stages of healing. No scalp hematomas. Midface stable without any signs of injury. Lips are dry, mucous membranes are dry. Pupils are mid dilated, round, reactive to light. No apparent nystagmus. She is not in a c- collar. Her neck is slightly tender. No meningeal signs. Spine below the C- spine is nontender. She has mild tachypnea at a rate of 21. Her lungs are clear. Her chest wall stable without crepitus or tenderness. Her abdomen is soft, nondistended, nontender. No guarding. Her heart rate is in the 80s but at times goes up to 100. Rhythm is regular. Passive range of motion of all of her extremities is normal and she is not having any focal joint pain or bony tenderness. She is missing her right great toe. There are abrasions on the top of the right toes 3 through 5. She has occasional jerking movements. Something similar to what I have seen in patients with metabolic encephalopathy or mild asterixis. Her muscle tone is slightly increased. No classic cogwheel rigidity. She has tremors. Patient memory is impaired. She does not member how she got here, whether she is eaten today, what happened last night. Surprisingly, she does know the year and month. She also vaguely alludes to the fact that she was here recently but cannot expound upon this. Course Vital Signs: Vital signs: Vital Signs Temperature 97.4 F L 12/29/22 14:31 Pulse Rate 104 H 12/29/22 16:00 Respiratory Rate 18 12/29/22 14:31 Blood Pressure 102/61 12/29/22 16:00 Pulse Oximetry 95 12/29/22 16:00 Oxygen Delivery Me thod Room Air 12/29/22 16:00 MDM - Altered Mental Status Medical Decision Making 67-year-old female presents 1 day after discharge with ongoing symptoms of altered mental status, abnormal muscle tone, tremors, gait instability. She had another fall last night that was unwitnessed. She has bruises all over her body and a few abrasions. Fortunately I do not find any serious traumatic injuries on examination. I am going to go ahead and do a CT scan of her head and cervical spine as well as a chest x-ray and a pelvis x-ray. After reading through the notes there is some concern as to whether she had akathisia from dopaminergic medications--these were stopped. There is also some concern that she may have something similar to alcohol withdrawal syndrome or Wernicke's encephalopathy. I did not detect any obvious nystagmus but the patient has a difficult time following commands so it is difficult to detect any ocular neuromotor dysfunction. I have ordered folate acid, banana bag. Of ordered a core temperature. Also going to check on ammonia, alcohol, evaluate for any toxicity, metabolic disturbances, and other potential etiologies to explain the patient's symptoms. TSH was recently very low but the T4 free was normal and T3 free was low. This combination is quite unusual. Update CT head, cervical spine read by radiologist. No acute findings. Chest x-ray and pelvis x-rays also read by radiology, no acute findings. Labs show elevated white blood cell count 11,000, stable anemia 9.2, and low magnesium, low potassium, elevated CK. Creatinine, lactic acid, phosphorus, electrolytes okay. Anion gap 18, bicarb 22. I have started potassium replacement, can replace magnesium after this. As to the cause of her altered mental status, it is unclear. Dementia, Warnicke's encephalopathy, toxic encephalopathy, psychiatric illness, multiple others are still in the differential diagnosis. Patient is going to have to be admitted to the hospital for further work-up and treatment. She is unsafe to go home at this point. UA and UDS pending--they did in and out cath and no urine present. Starting on more IVF. Discussed with Dr. Padilla for admission to med surg. Lab Data 12/29/22 15:56 12/29/22 15:56 Laboratory Results WBC 11.15 10^3/uL (3.29-11.43) 12/29/22 15:56 RBC 2.86 10^6/uL (3.85-5.65) L 12/29/22 15:56 Hgb 9.20 g/dL (11.27-16.99) L 12/29/22 15:56 Hct 27.2 % (36-47) L 12/29/22 15:56 MCV 95.1 fl (85-98) 12/29/22 15:56 MCH 32.2 pg (27-33) 12/29/22 15:56 MCHC 33.8 g/dL (30-55) 12/29/22 15:56 RDW 16.4 % (12.1-15.1) H 12/29/22 15:56 Plt Count 178 10^3/cmm (157-399) 12/29/22 15:56 MPV 8.9 fL (7.4-10.4) 12/29/22 15:56 Neut % (Auto) 87.6 % 12/29/22 15:56 Lymph % (Auto) 5.0 % 12/29/22 15:56 [place] % (Auto) 5.2 % 12/29/22 15:56 Eos % (Auto) 0.0 % 12/29/22 15:56 Baso % (Auto) 0.1 % 12/29/22 15:56 Neut # (Auto) 9.77 10^3/uL (1.8-7.7) H 12/29/22 15:56 Lymph # (Auto) 0.6 10^3/uL (0.8-4.8) L 12/29/22 15:56 [place] # (Auto) 0.6 10^3/uL (0.2-0.9) 12/29/22 15:56 Eos # (Auto) 0.0 10^3/uL (0.0-0.8) 12/29/22 15:56 Baso # (Auto) 0.0 10^3/uL (0.0-0.1) 12/29/22 15:56 Nucleated RBC % (auto) 0.4 % 12/29/22 15:56 Nucleated RBCs # 0.0 /100WBC 12/29/22 15:56 Sodium 142 mmol/L (136-145) 12/29/22 15:56 Potassium 2.9 mmol/L (3.5-5.1) L 12/29/22 15:56 Chloride 104 mmol/L (98-107) 12/29/22 15:56 Carbon Dioxide 22 mmol/L (22-29) 12/29/22 15:56 Anion Gap 18.9 (5-19) 12/29/22 15:56 BUN 10 mg/dL (8-23) 12/29/22 15:56 Creatinine 0.9 mg/dL (0.5-0.9) 12/29/22 15:56 GFR Calculation 62.1 mL/min (90-130) L 12/29/22 15:56 Glucose 84 mg/dL (65-115) 12/29/22 15:56 Calculated Osmolality 292 mOsm/kg (285-295) 12/29/22 15:56 Lactic Acid 1.4 mmol/L (0.5-2.2) 12/29/22 15:56 Calcium 9.2 mg/dL (8.5-10.5) 12/29/22 15:56 Phosphorus 3.2 mg/dL (2.5-4.5) 12/29/22 15:56 Magnesium 1.5 mg/dL (1.7-2.3) L 12/29/22 15:56 Total Bilirubin 0.7 mg/dL (0.15-1.2) 12/29/22 15:56 AST 38 U/L (0-32) H 12/29/22 15:56 ALT 23 U/L (0-33) 12/29/22 15:56 Alkaline Phosphatase 150 U/L (35-105) H 12/29/22 15:56 Ammonia 16 umol/L (11-51) 12/29/22 15:56 Creatine Kinase 321 U/L (26-192) H* 12/29/22 15:56 Total Protein 6.7 g/dL (6.6-8.7) 12/29/22 15:56 Albumin 3.4 g/dL (3.5-5.2) L 12/29/22 15:56 Globulin 3.3 g/dL (1.3-4.6) 12/29/22 15:56 Procalcitonin 0.18 ng/mL (0-0.5) 12/29/22 15:56 Salicylates 0.5 mg/dL (3-10) L 12/29/22 15:56 Acetaminophen < 5.0 ug/mL (10-30) L 12/29/22 15:56 Ethyl Alcohol < 10 mg/dL (0-10) 12/29/22 15:56 All radiology interpretation(s) finalized by discharge Discharge Plan Discharge Patient Disposition: Admitted As Inpatient Clinical Impression: Altered mental status, Recurrent falls, Low TSH level, Acute hypokalemia, Hypomagnesemia, Contusion of multiple sites, Elevated CK Condition: Stable Coding Level of Care Code ED Horticultural Nursery Assistant for Nate Castañeda
--- NOTE | 2022-12-29 14:48 | XR_ITS ---
WS: [id number] XR chest 1V portable [id number] REASON FOR EXAM: trauma FINDINGS: The chest is unchanged compared to 12/26/2022. Normal heart size. Significant tortuosity of the thoracic aorta. Wireless cardiac device overlying th e left anterior chest wall. Calcified granulomas disease in both hemithoraces. No acute pulmonary parenchymal or pleural abnormality. Scoliosis and degenerative spondylosis with multilevel vertebroplasties in the thoracic spine. IMPRESSION: Stable chest with no acute abnormality.
--- NOTE | 2022-12-29 14:48 | XR_ITS ---
WS: [id number] XR pelvis 1-2V* [id number] REASON FOR EXAM: unwitnessed fall, AMS FINDINGS: Sacrum and iliac bones are intact without fracture. Hips are in normal alignment. No hip fracture identified. IMPRESSION: No fracture identified.
--- NOTE | 2022-12-29 14:48 | CT_ITS ---
WS: [id number] CT CERVICAL TRAUMA TECHNIQUE: Noncontrast CT of the cervical spine with coronal and sagittal reformatted images. CLINICAL INFORMATION: trauma COMPARISON: None. DLP: 1501.[address] scans at [facility] use at least one of these dose optimization techniques: automated e xposure control; mA and/or kV adjustment per patient size (includes targeted exams where dose is matc hed to clinical indication); or iterative reconstruction. FINDINGS: Mild cervical curve. Moderate spondylitic changes. Disc osteophyte complex worse at C5-6 with endplat e ridging. Disc space narrowing worse at this level. Mild central canal stenosis C4-C5 and C5-C6. Nor mal craniocervical junction. Normal C1-C2 articulation. Dens is normal in appearance. Normal occipita l condyles. Normal C1 ring. No evidence of acute fracture or dislocation. Normal prevertebral soft tissues. [place] air cells are well aerated. IMPRESSION: No evidence of acute fracture or dislocation.
--- NOTE | 2022-12-29 14:48 | CT_ITS ---
WS: [id number] CT HEAD TECHNIQUE: Noncontrast CT of the head obtained from the skullbase to the vertex. CLINICAL INFORMATION: trauma, fall unwitness; AMS COMPARISON: CT head 12/26/2022 and MRI 12/27/2022 DLP: 1501.[address] scans at [facility] use at least one of these dose optimization techniques: automated e xposure control; mA and/or kV adjustment per patient size (includes targeted exams where dose is matc hed to clinical indication); or iterative reconstruction. FINDINGS: No evidence of intracranial hemorrhage or mass effect. Ventricular system and basal cisterns are cotter nt. Mild small vessel changes with moderate parenchymal volume loss. No extra-axial fluid collections . No evidence of mass or mass effect. Paranasal sinuses and mastoid air cells are well aerated. .Normal visualized soft tissues. IMPRESSION: 1. No evidence of intracranial hemorrhage or mass effect. 2. No acute intracranial findings.
--- NOTE | 2022-12-29 15:30 | PC.PHAR ---
PT DISCHARGED RICHAR ELISA 12/25 WITH MED LIST. DISCHARGED HERE FROM CARDIAC STEP DOWN 12/26 WITH NEW RX'S FOLIC ACID 1 MG DAILY, LEVAQUIN 750MG DAILY, MAGNESIUM 200 MG TWICE DAILY, SEROQUEL 25 MG DAILY, AND THIAMINE 100 MG DAILY. ORDERS DISCONTINUED ARE REGLAN, ROPINEROLE, MACROBID AND PROMETHAZINE 25 MG TABLET AND SUPPOSITORY. NEW MEDS WERE ADDED AND DC'D MEDS WERE SUBTRACTED FROM MEDICATION LIST [facility]
[2022-12-29] MEDS: sodium chloride 0.9% 1,000 ML 999 ML IV ×2 (16:02→17:15)
[2022-12-29] MEDS: LORazepam 2 mg/mL INJ 1 mL 1 MG IVP (16:03)
[2022-12-29 16:05] LABS: Basophils % 0.1 %; Hematocrit 27.2 % (36-47); Lymphocytes # 0.6 10^3/uL (0.8-4.8); Mean Corpuscular HGB Conc 33.8 g/dL (30-55); Mean Corpuscular Hemoglobin 32.2 pg (27-33); Mean Corpuscular Volume 95.1 fl (85-98); Mean Platelet Volume 8.9 fL (7.4-10.4); Monocytes # 0.6 10^3/uL (0.2-0.9); Monocytes % 5.2 %; Neutrophils # 9.77 10^3/uL (1.8-7.7); Neutrophils % 87.6 %; Nucleated Red Blood Cells % 0.4 %; Platelet Count 178 10^3/cmm (157-399); Red Blood Count 2.86 10^6/uL (3.85-5.65); Red Cell Distribution Width 16.4 % (12.1-15.1); White Blood Count 11.15 10^3/uL (3.29-11.43)
[2022-12-29] MEDS: folic acid 1 MG, multivitamin inj 10 ML, thiamine 100 MG in sodium chloride 0.9% 1,000 ML 252.8 MG IV (16:05)
[2022-12-29 16:29] LABS: Alanine Aminotransferase 23 U/L (0-33); Albumin Level 3.4 g/dL (3.5-5.2); Alkaline Phosphatase 150 U/L (35-105); Anion Gap 18.9 (5-19); Aspartate Amino Transferase 38 U/L (0-32); Blood Urea Nitrogen 10 mg/dL (8-23); Calcium 9.2 mg/dL (8.5-10.5); Carbon Dioxide 22 mmol/L (22-29); Chloride 104 mmol/L (98-107); Globulin 3.3 g/dL (1.3-4.6); Glomerular Filtration Rate 62.1 mL/min (90-130); Glucose 84 mg/dL (65-115); Lactic Sepsis W/Reflex 1.4 mmol/L (0.5-2.2); Magnesium 1.5 mg/dL (1.7-2.3); Osmolality Calculated 292 mOsm/kg (285-295); Phosphorus 3.2 mg/dL (2.5-4.5); Salicylate 0.5 mg/dL (3-10); Sodium 142 mmol/L (136-145); Total Bilirubin 0.7 mg/dL (0.15-1.2); Total Protein 6.7 g/dL (6.6-8.7)
[2022-12-29 16:33] LABS: Ammonia 16 umol/L (11-51)
[2022-12-29 16:35] LABS: Procalcitonin 0.18 ng/mL (0-0.5)
[2022-12-29 16:37] LABS: Acetaminophen < 5.0 ug/mL (10-30); Alcohol Level < 10 mg/dL (0-10); Creatine Phosphokinase 321 U/L (26-192); Potassium 2.9 mmol/L (3.5-5.1)
--- NOTE | 2022-12-29 16:58 | PM.HP ---
Providers/Chief Complaint Primary Care Provider: Anton Martin MD Chief Complaint: ams History of Present Illness Chrissy Pantoja is a 67 year old female who was recently discharged from the hospital after head MRI, there was concern for Korsakoff/Warnicke encephalopathy, patient did well with PT home health was recommended she was given walker and a walker wheelchair presented today with chief complaint of worsening confusion recurrent falls and lethargy. No fever, patient is able to tell me her name and date of she is oriented to place but not to person no new focal deficit Nonpurposeful movement of her extremities noted Multiple skin ulcers Her blood pressure is low she has hypokalemia and hypomagnesemia Beyer scan did not show any acute fractures, CT head unremarkable Review of Systems General: Reports: ROS unobtainable due to medical condition and ROS unobtainable due to mental status Medications/Allergies Home Medications Medication Instructions Recorded Confirmed Last Taken Type potassium chloride 20 mEq 20 meq PO DAILY #20 tabs 12/14/22 12/29/22 Unknown Rx tablet,extended release sertraline 100 mg tablet (Zoloft) 100 mg PO BID 12/14/22 12/29/22 Unknown History acetaminophen 325 mg tablet 650 mg PO Q4H PRN Pain 12/19/22 12/29/22 Unknown History (Tylenol) apixaban 5 mg tablet (Eliquis) 5 mg PO BID 12/19/22 12/29/22 Unknown History aspirin 81 mg tablet,delayed 81 mg PO DAILY 12/19/22 12/29/22 Unknown History release atorvastatin 40 mg tablet 40 mg PO DAILY 12/19/22 12/29/22 Unknown History bisacodyl 10 mg rectal suppository 10 mg AR DAILY PRN Constipation 12/19/22 12/29/22 Unknown History (Dulcolax (bisacodyl)) gabapentin 300 mg capsule 300 mg PO TID 12/19/22 12/29/22 Unknown History levothyroxine 150 mcg tablet 150 mcg PO DAILY 12/19/22 12/29/22 Unknown History magnesium hydroxide 400 mg/5 mL 30 ml PO DAILY PRN Constipation 12/19/22 12/29/22 Unknown History oral suspension (Milk of Magnesia) oxycodone 5 mg tablet 5 mg PO Q6H PRN Pain 12/19/22 12/29/22 Unknown History pantoprazole 40 mg tablet,delayed 40 mg PO DAILY 12/19/22 12/29/22 Unknown History release sodium phosphates 19 gram-7 118 ml AR DAILY PRN Constipation 12/19/22 12/29/22 Unknown History gram/118 mL enema (Fleet Enema) sumatriptan succinate 50 mg tablet See Rx Instructions .Route .COMPLEX 12/19/22 12/29/22 Unknown History folic acid 1 mg tablet 1 mg PO DAILY #60 tabs 12/28/22 12/29/22 Unknown Rx levofloxacin 750 mg tablet 750 mg PO DAILY 7 days #7 tabs 12/28/22 12/29/22 Unknown Rx magnesium 200 mg tablet 200 mg PO BID #20 tabs 12/28/22 12/29/22 Unknown Rx quetiapine 25 mg tablet (Seroquel) 25 mg PO BEDTIME #3 tabs 12/28/22 12/29/22 Unknown Rx thiamine HCl (vitamin B1) 100 mg 100 mg PO DAILY #60 tabs 12/28/22 12/29/22 Unknown Rx tablet Allergies Allergy/AdvReac Type Severity Reaction Status Date / Time morphine Allergy ADR-Vomitin Verified 12/29/22 14:42 g PFSH Acute PFSH: Medical History Acute UTI Altered mental status Atrial fibrillation Chronic anticoagulation Fall Hyperlipidemia Hypothyroidism s/p thyroidectomy for thyroid CA Recurrent falls Thyroid cancer s/p thyroidectomy Urinary tract infection Vitals/I&O/Wt Last Vital Signs Temp 97.4 F L 12/29/22 14:31 Pulse 104 H 12/29/22 16:00 Resp 18 12/29/22 14:31 BP 102/61 12/29/22 16:00 Pulse Ox 95 12/29/22 16:00 O2 Del Method Room Air 12/29/22 16:00 Weight last 48 hrs Weight 68.039 kg Physical Exam Narrative: Patient is awake Akathisia Moving her extremities Multiple skin ulcers I did not appreciate any tick bite Patient seems to pick on her skin Abdomen soft Currently on room air Extremely dry Clinical signs of dehydration Able to answer a few questions on verbal redirection Pupils are equal and symmetrical I do not appreciate any asymmetrical pupils No active headache S1, S2 sinus tachycardia Data 12/29/22 15:56 12/30/22 03:46 A&P Assessment and plan (1) Acute hyperactive delirium due to another medical condition: (2) Low TSH level: (3) Acute hypokalemia: (4) Hypomagnesemia: (5) Contusion of multiple sites: (6) Elevated CK: (7) Recurrent falls: (8) Atrial fibrillation: (9) Acute UTI: (10) Benzodiazepine dependence: Plan Acute delirium Related to polypharmacy Concern for Warnicke encephalopathy and Korsakoff No signs of meningitis Multiple skin ulcers Drug screen is pending Patient does have history of hypothyroidism Start high-dose thiamine Continue folic acid Patient was recently diagnosed with UTI continue antibiotics for UTI Patient has clinical signs of dehydration Continue IV fluid As per the she recently had a back surgery we will request records from [facility] muscle injury elevated CPK noted, monitor for now Most likely she will need rehab this time Patient has history of A-fib takes anticoagulating agent Attestations Medical Necessity Statement*: Continue medical management anticipating more than 2 midnights Diagnoses Acute hyperactive delirium due to another medical condition F05 Low TSH level R79.89 Acute hypokalemia E87.6 Hypomagnesemia E83.42 Contusion of multiple sites T07.XXXA Elevated CK R74.8 Recurrent falls R29.6 Atrial fibrillation I48.91 Acute UTI N39.0 Benzodiazepine dependence F13.20
[2022-12-29] MEDS: magnesium sulfate premix 2 GM/50 ML PIGGYBACK IV (17:15)
[2022-12-29] MEDS: potassium chloride premix 100 ML 25 MEQ IV (18:09)
--- NOTE | 2022-12-29 18:30 | PC.NURSE ---
PATIENT REPORT CALLED TO ALAN JACK. WHEN THE PATIENT WAS ABOUT TO BE TRANSPORTED TO CSU, ROOM NUMBER WAS CHANGED. CSU STATED THAT THE ROOM WAS BEING STAT CLEANED AND WOULD CALL WHEN ROOM IS READY.
--- NOTE | 2022-12-29 20:50 | PC.PHAR ---
Pharmacokinetic dosing service Date: 12/29/22 Time: 2049 Objective: Patient: Chrissy Pantoja Floor: [id number] Age: 67 yo Serum creatinine: 0.9 mg/dL Height: 66.0 Inches Weight (kg): 68.039 Diagnosis: Relevant medical/social history: Cultures and sensitivities: Other labs: Assessment: IBW (kg): 59.30 Dosing wt(kg): 68.039 Estimated Creatinine clearance (ml/min): 55.2 CRCL method: Cockcroft and Gault using ibw(default). Drug selected: Vancomycin Loading dose (mg): 0 Vd (liters): 61.2 (factor used: 0.9 L/kg) Antonino (hr-1): 0.050 Half life (hrs): 13.86 Recommended dose: 1250 mg Interval: 18 hrs Infusion time (hrs): 1.5 Predicted peak (mcg/mL): 33.2 Predicted trough (mcg/mL): 14.55 Total body weight is being used for vancomycin dosing. Renal function is stable [ ] /unstable [ ] Recommendations: Give Vancomycin 1250 mg q 18 hrs with an expected Cpeak of 33.2 mcg/ml and an expected Ctrough of 14.55 mcg/ml Renal dosing of other antibiotics (review renal dosing of other medications and list guidelines here): Thank you for the consult, will continue to follow. Signature: Idalia Bhatt [facility]
[2022-12-29 21:09] LABS: Add Urine Microscopic? NO; Charge for UA Resulting for Rev
[2022-12-29 21:14] LABS: Bilirubin Urine Neg (Negative); Blood Urine Neg (Negative); Glucose Urine UA Norm (Normal); Ketones Urine 1+ (Negative); Leukocyte Esterase Urine Negative (Negative); Nitrate Urine Negative (Negative); Protein Urine Neg (Negative); Specific Gravity, Urine 1.015 (1.005-1.030); Urine Appearance Clear (CLEAR); Urine Color Yellow (Yellow); Urobilinogen Urine Neg (Negative); pH Urine 5 (5-7)
[2022-12-29] MEDS: potassium chloride oral liq 20 mEq/15 mL UDC 40 MEQ PO (21:16)
[2022-12-29] MEDS: quetiapine 25 mg Tablet PO (21:17)
[2022-12-29] MEDS: magnesium oxide 400 mg tablet 200 MG PO (21:17)
[2022-12-29] MEDS: sodium chloride 0.9% 1,000 ML 75 ML IV (21:18)
[2022-12-29 21:34] LABS: Amphetamines Screen Urine Negative (Negative); Barbiturates Screen Urine Negative (Negative); Benzodiazepines Screen Urine Negative (Negative); Cocaine Screen Urine Negative (Negative); Opiate Screen Urine Positive (Negative); PCP Screen Urine Negative (Negative); THC Screen Urine Negative (Negative)
[2022-12-29] MEDS: vancomycin 1,250 MG/250 ML PIGGYBACK 250 MG IV (22:31)
[2022-12-29] MEDS: piperacillin-tazobactam 3.375 GM in sodium chloride 0.9% (plus) 50 ML IV (23:48)
[2022-12-30] VITALS (11 sets, daily range): BP systolic 94–130; BP diastolic 47–84; PULSE 82–105; RESP 17–22; TEMP 36.6–37.4; O2SAT 94–96
[2022-12-30 04:16] LABS: Anion Gap 14.3 (5-19); Blood Urea Nitrogen 7 mg/dL (8-23); C Reactive Protein 87.5 mg/L (0.0-4.9); Calcium 7.7 mg/dL (8.5-10.5); Carbon Dioxide 18 mmol/L (22-29); Chloride 110 mmol/L (98-107); Glomerular Filtration Rate 99.1 mL/min (90-130); Glucose 71 mg/dL (65-115); Magnesium 1.9 mg/dL (1.7-2.3); Osmolality Calculated 284 mOsm/kg (285-295); Potassium 3.3 mmol/L (3.5-5.1); Sodium 139 mmol/L (136-145)
[2022-12-30] MEDS: piperacillin-tazobactam 3.375 GM in sodium chloride 0.9% (plus) 50 ML IV ×3 (05:44→21:16)
[2022-12-30] MEDS: aspirin 81 mg EC Tablet PO (09:24)
[2022-12-30] MEDS: levothyroxine 150 mcg Tablet PO (09:24)
[2022-12-30] MEDS: sennosides-docusate Tablet 1 TAB PO (09:24)
[2022-12-30] MEDS: magnesium oxide 400 mg tablet 200 MG PO ×2 (09:24→21:09)
[2022-12-30] MEDS: potassium chloride ER 20 mEq Tablet PO (09:24)
[2022-12-30] MEDS: pantoprazole DR 40 mg Tablet PO (09:24)
[2022-12-30] MEDS: atorvastatin 40 mg Tablet PO (09:24)
[2022-12-30] MEDS: folic acid 1 mg Tablet PO (09:24)
[2022-12-30] MEDS: sodium chloride 0.9% 1,000 ML 75 ML IV ×2 (10:42→23:56)
--- NOTE | 2022-12-30 13:46 | PM.PN ---
Subjective Subjective: Patient is awake and alert able to answer a few questions Still confused Vitals/I&O/Wt Last Vital Signs Temp 99.3 F 12/30/22 03:49 Pulse 82 12/30/22 12:00 Resp 17 12/30/22 12:00 BP 112/72 12/30/22 12:00 Pulse Ox 94 12/30/22 12:00 O2 Del Method Room Air 12/30/22 08:00 12/29/22 12/30/22 12/30/22 22:59 06:59 14:59 Intake Total 2161.2 / 2161.2 1300 / 3461.2 1290 / 1290 Output Total 450 / 450 500 / 950 Balance 1711.2 / 1711.2 800 / 2511.2 1290 / 1290 Weight last 48 hrs Weight 68.039 kg Physical Exam Narrative: Purposeless movement of extremities Multiple skin ulcers Dehydrated Dry mucous membranes Currently on room air No signs of meningitis Multiple bruises and petechiae all over her body Able to move her extremities S1, S2 sinus tachycardia Currently on room air Urinary Catheter Management: Soriano: Cath Placed During This Visit: yes Reason for Continuing Indwelling Catheter: Accurate Measurement of Urinary Output in Critically Ill Patients Urinary Catheter Date of Insertion: 12/29/22 Urinary Catheter Time of Insertion: 21:03 Data 12/29/22 15:56 12/30/22 03:46 A&P Assessment and plan (1) Low TSH level: (2) Acute hyperactive delirium due to another medical condition: (3) Acute hypokalemia: (4) Hypomagnesemia: (5) Contusion of multiple sites: (6) Elevated CK: (7) Recurrent falls: (8) Wernicke-Korsakoff psychosis: Plan Encephalopathy likely related to Warnicke/Korsakoff Continue high-dose thiamine Continue antibiotics for UTI I do not see any signs of meningitis I have discontinued her ropinirole avoid dopaminergic agonist to prevent manic episodes Full code Continue diet I have not noticed any nausea or vomiting Electrolytes being replenished Attestations Medical Necessity Statement*: Continue medical management Diagnoses Low TSH level R79.89 Acute hyperactive delirium due to another medical condition F05 Acute hypokalemia E87.6 Hypomagnesemia E83.42 Contusion of multiple sites T07.XXXA Elevated CK R74.8 Recurrent falls R29.6 Wernicke-Korsakoff psychosis F04
[2022-12-30] MEDS: vancomycin 1,250 MG/250 ML PIGGYBACK 250 MG IV (14:26)
--- NOTE | 2022-12-30 16:16 | PC.PT ---
Nurse requested hold PT eval today as pt continues to have difficulty following requests. Will attempt again tomorrow.
[2022-12-30] MEDS: apixaban 5 mg Tablet PO (21:09)
[2022-12-30] MEDS: quetiapine 25 mg Tablet PO (21:10)
[2022-12-30] MEDS: metoprolol tartrate 25 mg Tablet PO (21:10)
[2022-12-31] VITALS (8 sets, daily range): BP systolic 102–122; BP diastolic 56–79; PULSE 77–87; RESP 14–17; TEMP 36.5–37.3; O2SAT 91–97
[2022-12-31 05:22] LABS: Basophils % 0.5 %; Eosinophils # 0.1 10^3/uL (0.0-0.8); Eosinophils % 1.4 %; Hematocrit 23.2 % (36-47); Lymphocytes # 1.4 10^3/uL (0.8-4.8); Lymphocytes % 22.2 %; Mean Corpuscular HGB Conc 32.3 g/dL (30-55); Mean Corpuscular Hemoglobin 32.1 pg (27-33); Mean Corpuscular Volume 99.1 fl (85-98); Mean Platelet Volume 8.8 fL (7.4-10.4); Monocytes # 0.4 10^3/uL (0.2-0.9); Monocytes % 5.6 %; Neutrophils # 4.19 10^3/uL (1.8-7.7); Neutrophils % 66.5 %; Nucleated Red Blood Cells % 0 %; Platelet Count 155 10^3/cmm (157-399); Red Blood Count 2.34 10^6/uL (3.85-5.65); Red Cell Distribution Width 17.3 % (12.1-15.1)
[2022-12-31 05:39] LABS: Anion Gap 13.2 (5-19); Blood Urea Nitrogen 3 mg/dL (8-23); Calcium 7.7 mg/dL (8.5-10.5); Carbon Dioxide 24 mmol/L (22-29); Chloride 105 mmol/L (98-107); Glomerular Filtration Rate 158.3 mL/min (90-130); Glucose 71 mg/dL (65-115); Osmolality Calculated 283 mOsm/kg (285-295); Potassium 3.2 mmol/L (3.5-5.1); Sodium 139 mmol/L (136-145)
[2022-12-31] MEDS: piperacillin-tazobactam 3.375 GM in sodium chloride 0.9% (plus) 50 ML IV ×3 (06:07→21:19)
[2022-12-31] MEDS: potassium chloride ER 20 mEq Tablet PO (09:03)
[2022-12-31] MEDS: vancomycin 1,250 MG/250 ML PIGGYBACK 250 MG IV (09:03)
[2022-12-31] MEDS: metoprolol tartrate 25 mg Tablet PO ×2 (09:04→21:19)
[2022-12-31] MEDS: pantoprazole DR 40 mg Tablet PO (09:04)
[2022-12-31] MEDS: folic acid 1 mg Tablet PO (09:04)
[2022-12-31] MEDS: aspirin 81 mg EC Tablet PO (09:04)
[2022-12-31] MEDS: apixaban 5 mg Tablet PO (09:04)
[2022-12-31] MEDS: atorvastatin 40 mg Tablet PO (09:04)
[2022-12-31] MEDS: magnesium oxide 400 mg tablet 200 MG PO ×2 (09:04→17:21)
[2022-12-31] MEDS: levothyroxine 150 mcg Tablet PO (09:04)
[2022-12-31] MEDS: sennosides-docusate Tablet 1 TAB PO (09:04)
--- NOTE | 2022-12-31 09:43 | PM.PN ---
Subjective Subjective: Patient is feeling better Able to answer my questions Drop in hemoglobin could be dilutional We will check CBC in the morning Currently I would continue her Eliquis Vitals/I&O/Wt Last Vital Signs Temp 98.5 F 12/31/22 07:36 Pulse 84 12/31/22 07:36 Resp 14 12/31/22 08:00 BP 122/71 12/31/22 07:36 Pulse Ox 93 12/31/22 07:36 O2 Del Method Room Air 12/31/22 08:00 12/30/22 12/31/22 12/31/22 22:59 06:59 14:59 Intake Total 660 / 1950 1042.5 / 2992.5 Output Total 2550 / 2550 Balance 660 / 1950 -1507.5 / 442.5 Weight last 48 hrs Weight 68.039 kg Physical Exam Narrative: Able to answer my questions Awake and alert Poor attention span GCS 15 Multiple skin ulcers Multiple petechial bruises all over her extremities No focal deficit Awake and alert Dehydrated Currently on room air Urinary Catheter Management: Soriano: Cath Placed During This Visit: yes Reason for Continuing Indwelling Catheter: Acute Urinary Retention or Obstruction Urinary Catheter Date of Insertion: 12/29/22 Urinary Catheter Time of Insertion: 21:03 Data 12/31/22 04:47 12/31/22 04:47 A&P Assessment and plan (1) Wernicke-Korsakoff psychosis: (2) Acute hyperactive delirium due to another medical condition: (3) Low TSH level: (4) Acute hypokalemia: (5) Hypomagnesemia: (6) Contusion of multiple sites: (7) Elevated CK: (8) Recurrent falls: (9) Atrial fibrillation: (10) Acute UTI: (11) Benzodiazepine dependence: Plan This patient will need longterm placement this time She is unsafe to return home she has multiple petechiae bruises all over her body She did not do well with a walker and a wheelchair at home Continue Seroquel at nighttime She does well with IV thiamine for Wernicke's encephalopathy I do not see any sign of meningitis or stroke Her electrolytes to be replenished Muscle injury improving Patient is eating her breakfast this morning Continue Eliquis, dilutional anemia suspected at this point Check FOBT I would continue her antibiotics Zosyn, discontinue vancomycin With diagnosis of UTI I will give her p.o. potassium Refeeding syndrome continue high-dose thiamine and electrolytes replenishment Attestations Medical Necessity Statement*: Awaiting placement Diagnoses Wernicke-Korsakoff psychosis F04 Acute hyperactive delirium due to another medical condition F05 Low TSH level R79.89 Acute hypokalemia E87.6 Hypomagnesemia E83.42 Contusion of multiple sites T07.XXXA Elevated CK R74.8 Recurrent falls R29.6 Atrial fibrillation I48.91 Acute UTI N39.0 Benzodiazepine dependence F13.20
[2022-12-31] MEDS: sodium chloride 0.9% 1,000 ML 75 ML IV (14:06)
[2022-12-31] MEDS: quetiapine 25 mg Tablet PO (21:19)
[2023-01-01] VITALS (8 sets, daily range): BP systolic 105–131; BP diastolic 70–91; PULSE 70–84; RESP 16–19; TEMP 36.7–37.2; O2SAT 92–97
[2023-01-01] MEDS: sodium chloride 0.9% 1,000 ML 75 ML IV (02:54)
[2023-01-01] MEDS: piperacillin-tazobactam 3.375 GM in sodium chloride 0.9% (plus) 50 ML IV (05:55)
[2023-01-01 05:57] LABS: Alanine Aminotransferase 17 U/L (0-33); Albumin Level 2.6 g/dL (3.5-5.2); Alkaline Phosphatase 120 U/L (35-105); Aspartate Amino Transferase 25 U/L (0-32); Blood Urea Nitrogen 4 mg/dL (8-23); Calcium 7.9 mg/dL (8.5-10.5); Carbon Dioxide 22 mmol/L (22-29); Chloride 106 mmol/L (98-107); Creatine Phosphokinase 68 U/L (26-192); Globulin 3.4 g/dL (1.3-4.6); Glomerular Filtration Rate 158.3 mL/min (90-130); Glucose 70 mg/dL (65-115); Magnesium 1.8 mg/dL (1.7-2.3); Osmolality Calculated 285 mOsm/kg (285-295); Sodium 140 mmol/L (136-145); Total Bilirubin 0.7 mg/dL (0.15-1.2)
--- NOTE | 2023-01-01 10:03 | P.PN_ITS ---
Subjective Subjective: Patient is much better today, able to answer all my questions She is able to able to recall what happened last week she is able to tell me that she was at [facility] for evaluation of back pain she is denying any lumbar puncture, trigger injections or any kind of surgeries She is stating that she is not sure whether surgeon recommended any intervention at all She is endorsing to drinking beer Vitals/I&O/Wt Last Vital Signs Temp 98.5 F 01/01/23 07:19 Pulse 73 01/01/23 07:55 Resp 16 01/01/23 07:55 BP 131/74 01/01/23 07:19 Pulse Ox 97 01/01/23 07:55 O2 Del Method Room Air 01/01/23 07:55 12/31/22 01/01/23 01/01/23 22:59 06:59 14:59 Intake Total 50 / 1350 1010 / 2360 Output Total 700 / 700 200 / 900 Balance -650 / 650 810 / 1460 Physical Exam Narrative: Patient is awake and alert Multiple bruises with signs of healing GCS [address] Nonfocal neuro exam No sign of meningitis Short attention span Nonfocal neuro exam Multiple petechiae improving S1, S2 Currently on room air Signs of dehydration improved Urinary Catheter Management: Soriano: Cath Placed During This Visit: yes Reason for Continuing Indwelling Catheter: Acute Urinary Retention or Obstruction Urinary Catheter Date of Insertion: 12/29/22 Urinary Catheter Time of Insertion: 21:03 Data 12/31/22 04:47 01/01/23 05:05 Micro: Microbiology 12/31/22 13:41 Occult Blood (FIT) - Final Stool Routine Collection A&P Assessment and plan (1) Wernicke-Korsakoff psychosis: (2) Acute hyperactive delirium due to another medical condition: (3) Low TSH level: (4) Acute hypokalemia: (5) Hypomagnesemia: (6) Contusion of multiple sites: (7) Elevated CK: (8) Hypothyroidism: (9) Atrial fibrillation: (10) Altered mental status: (11) Acute UTI: (12) Benzodiazepine dependence: Plan UTI: Change antibiotics to p.o. levofloxacin, patient has been afebrile, no significant leukocytosis Afebrile Hypokalemia: Repleted Refeeding syndrome: Electrolytes replenished Magnesium 1.8 today Patient is on high-dose thiamine for Warnicke encephalopathy MRI head unremarkable No signs of meningitis A-fib without RVR continue Eliquis We will check CBC tomorrow FOBT negative DVT prophylaxis on board Full code Patient will need snf placement for recurrent falls Signs of dehydration: Improving I would like to discontinue IV fluids by tonight Mild muscle injury CPK improved Attestations Medical Necessity Statement*: Awaiting placement Diagnoses Wernicke-Korsakoff psychosis F04 Acute hyperactive delirium due to another medical condition F05 Low TSH level R79.89 Acute hypokalemia E87.6 Hypomagnesemia E83.42 Contusion of multiple sites T07.XXXA Elevated CK R74.8 Hypothyroidism E03.9 Atrial fibrillation I48.91 Altered mental status R41.82 Acute UTI N39.0 Benzodiazepine dependence F13.20
[2023-01-01] MEDS: sennosides-docusate Tablet 1 TAB PO (10:38)
[2023-01-01] MEDS: levothyroxine 150 mcg Tablet PO (10:38)
[2023-01-01] MEDS: atorvastatin 40 mg Tablet PO (10:39)
[2023-01-01] MEDS: folic acid 1 mg Tablet PO (10:39)
[2023-01-01] MEDS: magnesium oxide 400 mg tablet 200 MG PO ×2 (10:39→17:59)
[2023-01-01] MEDS: potassium chloride ER 20 mEq Tablet PO (10:39)
[2023-01-01] MEDS: pantoprazole DR 40 mg Tablet PO (10:40)
[2023-01-01] MEDS: metoprolol tartrate 25 mg Tablet PO ×2 (10:41→20:45)
--- NOTE | 2023-01-01 12:03 | PC.SOCIAL ---
Pg 2 IMM Explained to pt's spouse PG 2 IMM. No questions voiced. Provided pt a copy. Initialed, dated, & timed a copy & placed in chart.
[2023-01-01] MEDS: apixaban 5 mg Tablet PO (17:59)
[2023-01-01] MEDS: quetiapine 25 mg Tablet PO (20:45)
[2023-01-02] VITALS (8 sets, daily range): BP systolic 88–128; BP diastolic 50–73; PULSE 62–92; RESP 16–19; TEMP 36.3–36.7; O2SAT 93–98
[2023-01-02] MEDS: sodium chloride 0.9% 500 ML 999 ML IV (00:44)
--- NOTE | 2023-01-02 01:17 | PC.NURSE ---
00:00 Patient had manual bp of 88/50, Dr. Jade notified and he ordered a 500ml NS bolus, post bolus bp is 110/70.
[2023-01-02] MEDS: levoFLOXacin 750 mg Tablet PO (05:31)
[2023-01-02 06:17] LABS: Basophils % 0.5 %; Eosinophils # 0.1 10^3/uL (0.0-0.8); Eosinophils % 0.9 %; Hematocrit 29.7 % (36-47); Lymphocytes # 1.1 10^3/uL (0.8-4.8); Lymphocytes % 14.4 %; Mean Corpuscular Hemoglobin 31.6 pg (27-33); Mean Corpuscular Volume 98.7 fl (85-98); Mean Platelet Volume 8.6 fL (7.4-10.4); Monocytes # 0.5 10^3/uL (0.2-0.9); Neutrophils # 5.96 10^3/uL (1.8-7.7); Neutrophils % 76.7 %; Nucleated Red Blood Cells % 0 %; Platelet Count 204 10^3/cmm (157-399); Red Blood Count 3.01 10^6/uL (3.85-5.65); White Blood Count 7.78 10^3/uL (3.29-11.43)
[2023-01-02 06:40] LABS: Anion Gap 19.8 (5-19); Blood Urea Nitrogen 3 mg/dL (8-23); Calcium 8.1 mg/dL (8.5-10.5); Carbon Dioxide 22 mmol/L (22-29); Chloride 102 mmol/L (98-107); Glomerular Filtration Rate 158.3 mL/min (90-130); Glucose 71 mg/dL (65-115); Osmolality Calculated 287 mOsm/kg (285-295); Sodium 141 mmol/L (136-145)
[2023-01-02 06:52] LABS: Potassium 2.8 mmol/L (3.5-5.1)
[2023-01-02] MEDS: lidocaine 1% 5 ML in potassium chloride premix 100 ML 26.25 ML IV (07:40)
--- NOTE | 2023-01-02 10:04 | PM.PN ---
Subjective Subjective: Hold metoprolol Low blood pressure We will give LR bolus Patient has not been eating well This morning she was drowsy however on my second visit she was a bit more alert, able to answer few questions but goes back to sleep right away She is moving her extremities Vitals/I&O/Wt Last Vital Signs Temp 97.5 F L 01/02/23 08:00 Pulse 70 01/02/23 08:22 Resp 16 01/02/23 08:22 BP 92/56 01/02/23 08:00 Pulse Ox 98 01/02/23 08:22 O2 Del Method Room Air 01/02/23 08:22 01/01/23 01/02/23 01/02/23 22:59 06:59 14:59 Intake Total 1170 / 1170 500 / 1670 Balance 1170 / 1170 500 / 1670 Physical Exam Narrative: This morning is is drowsy Currently on room air Able to respond to verbal commands GCS 15 nonfocal neuro exam Healing wounds on her lower extremities She is currently on room air Abdomen soft Urinary Catheter Management: Soriano: Cath Placed During This Visit: yes, but has since been removed by the nurse Reason for Continuing Indwelling Catheter: Acute Urinary Retention or Obstruction Urinary Catheter Date of Insertion: 12/29/22 Urinary Catheter Time of Insertion: 21:03 Date Urinary Catheter Removed: 01/01/23 Time Urinary Catheter Discontinued: 11:57 Data 01/02/23 05:58 01/02/23 05:58 A&P Assessment and plan (1) Wernicke-Korsakoff psychosis: (2) Acute hyperactive delirium due to another medical condition: (3) Low TSH level: (4) Acute hypokalemia: (5) Hypomagnesemia: (6) Contusion of multiple sites: (7) Elevated CK: (8) Recurrent falls: (9) Hypothyroidism: (10) Atrial fibrillation: (11) Altered mental status: (12) Acute UTI: Plan Warnicke Korsakoff syndrome Continue high-dose of thiamine For UTI I will continue oral antibiotics No active diarrhea my suspicion for C. difficile is low Hypokalemia: Replenish potassium Hypoglycemia related lethargy today we will give her juice, I have asked her nurse to check POC glucose 1 more time Recheck electrolytes tomorrow Continue levothyroxine Continue Eliquis, hold metoprolol for low blood pressure We will give her a small bolus full Code Patient was examined multiple times Attestations Medical Necessity Statement*: Continue medical management Diagnoses Wernicke-Korsakoff psychosis F04 Acute hyperactive delirium due to another medical condition F05 Low TSH level R79.89 Acute hypokalemia E87.6 Hypomagnesemia E83.42 Contusion of multiple sites T07.XXXA Elevated CK R74.8 Recurrent falls R29.6 Hypothyroidism E03.9 Atrial fibrillation I48.91 Altered mental status R41.82 Acute UTI N39.0
[2023-01-02 10:21] LABS: Glucose Point of Care 74 mg/dL (70-110)
[2023-01-02] MEDS: lactated ringers 500 ML 999 ML IV (10:22)
[2023-01-02] MEDS: dextrose 50% syringe 50 mL IVP (10:43)
[2023-01-02 10:48] LABS: Estmated Average Glucose 91; Hemoglobin A1C 4.8 % (4.0-6.0)
[2023-01-02 11:47] LABS: SARS Covid-2 Antigen negative (Negative)
[2023-01-02] MEDS: dextrose 5%-sod chloride 0.9% 1,000 ML 75 ML IV (17:10)
[2023-01-02 18:06] LABS: Glucose Point of Care 84 mg/dL (70-110)
[2023-01-02] MEDS: thiamine 500 MG in sodium chloride 0.9% (100 ml) 100 ML 210 MG IV (19:17)
[2023-01-03] VITALS: BP 121/75; PULSE 82; RESP 19; TEMP 36.8; O2SAT 95
[2023-01-03 03:34] VITALS: BP 125/72; PULSE 88; RESP 18; TEMP 36.6; O2SAT 95
[2023-01-03] MEDS: dextrose 5%-sod chloride 0.9% 1,000 ML 75 ML IV (05:28)
[2023-01-03 06:35] LABS: Anion Gap 14.9 (5-19); Blood Urea Nitrogen 2 mg/dL (8-23); Calcium 7.9 mg/dL (8.5-10.5); Carbon Dioxide 26 mmol/L (22-29); Chloride 103 mmol/L (98-107); Glomerular Filtration Rate 220.6 mL/min (90-130); Glucose 101 mg/dL (65-115); Magnesium 1.7 mg/dL (1.7-2.3); Osmolality Calculated 288 mOsm/kg (285-295); Phosphorus 2.5 mg/dL (2.5-4.5); Sodium 141 mmol/L (136-145)
[2023-01-03 06:48] LABS: Potassium 2.9 mmol/L (3.5-5.1)
[2023-01-03] MEDS: lidocaine 1% 5 ML in potassium chloride premix 100 ML 26.25 ML IV (07:06)
[2023-01-03 07:09] VITALS: BP 132/82; PULSE 92; RESP 17; TEMP 36.8; O2SAT 98
[2023-01-03 08:07] VITALS: PULSE 92; RESP 17; O2SAT 98
--- NOTE | 2023-01-03 08:08 | PM.CONSULT ---
Providers/Reason For Consult Consulting Physician/Specialty*: Dr. Padilla, hospitalist Reason for Consult*: Persistent altered mental status Requesting Physician: Randy Attending Physician: Tiny Padilla MD Primary Care Provider: Anton Martin MD History of Present Illness History of Present Illness Chrissy Pantoja is a 67 year old female with multiple and persistent episodes of altered mental status. She came under our care 11/07/2022 with complaint of low back pain after she had taken a fall while moving here from [place]. She took a fall while moving here and had an orbital ridge fracture with a laceration on the right supraorbital ridge. She developed back pain subsequently and came in for that. She returned 12/14/2022 for hypokalemia, nausea and vomiting. Her potassium was 2.9 but CBC and CMP were otherwise only remarkable for a low albumin of 2.9. She was back 12/19 having taken a fall in the shelter but she did not have any signs of trauma and was sent back to the shelter. She was back in the emergency department having taken a fall 12/26/2022 and had a hematoma on her left forehead. She had a UTI and was sent home on Macrobid. She returned later in the day because she was found down in her driveway. Her called EMS to help him get her up and she was brought back to the hospital where CT scan of the head was unremarkable. She was confused. She was admitted and evaluated by Dr. Mao. reported that they were in transition from [place] to [facility] when the patient became acutely ill, vomiting, while they were in [place]. She had already been hospitalized at [facility] for a prolonged period of time and discharged from there to [facility]. The several ER visits were from falls that the patient took while she was at [facility]. She was discharged to her 's care and he reported that his 6-month history of the patient hallucinating, believing that her jewelry had been stolen. 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 Her mental status improved over the course of 24 hours and she was discharged 12/28/2022. She was having some akathisia of the Dr. Padilla attributed to metoclopramide and he started her on Seroquel. He discovered that the patient was drinking rum and fairly large quantities on a daily basis when she was at home and that she had been losing weight and using opioids. She was not home 24 hours before she returned to the ER and was readmitted for altered mental status again. Review of Systems Narrative: The patient was awake and conversant. She was not complaining of a headache. She denies any focal weakness. She says that she is in [place] this morning and she is feeling ready to get up and take a shower but she does not want to cooperate with my exam very much. Neuro: Reports: lack of coordination, difficulty walking, behavioral changes, Slurred speech present and difficulty communicating thoughts; Denies: headache(s), numbness in extremities, weakness in extremities, seizure-like activity or involuntary movements Medications/Allergies Home Medications Medication Instructions Recorded Confirmed Last Taken Type sertraline 100 mg tablet (Zoloft) 100 mg PO BID 12/14/22 12/29/22 Unknown History acetaminophen 325 mg tablet 650 mg PO Q4H PRN Pain 12/19/22 12/29/22 Unknown History (Tylenol) apixaban 5 mg tablet (Eliquis) 5 mg PO BID 12/19/22 12/29/22 Unknown History atorvastatin 40 mg tablet 40 mg PO DAILY 12/19/22 12/29/22 Unknown History bisacodyl 10 mg rectal suppository 10 mg WA DAILY PRN Constipation 12/19/22 12/29/22 Unknown History (Dulcolax (bisacodyl)) gabapentin 300 mg capsule 300 mg PO TID 12/19/22 12/29/22 Unknown History levothyroxine 150 mcg tablet 150 mcg PO DAILY 12/19/22 12/29/22 Unknown History oxycodone 5 mg tablet 5 mg PO Q6H PRN Pain 12/19/22 12/29/22 Unknown History pantoprazole 40 mg tablet,delayed 40 mg PO DAILY 12/19/22 12/29/22 Unknown History release quetiapine 25 mg tablet (Seroquel) 25 mg PO BEDTIME #3 tabs 12/28/22 12/29/22 Unknown Rx folic acid 1 mg tablet 1 mg PO DAILY #60 tabs 01/02/23 12/29/22 Unknown Rx levofloxacin 750 mg tablet 750 mg PO DAILY 7 days #3 tabs 01/02/23 12/29/22 Unknown Rx magnesium 200 mg tablet 200 mg PO BID #20 tabs 01/02/23 12/29/22 Unknown Rx thiamine HCl (vitamin B1) 100 mg 100 mg PO DAILY #60 tabs 01/02/23 12/29/22 Unknown Rx tablet potassium chloride 20 mEq 20 meq PO DAILY #20 tabs 01/03/23 12/29/22 Unknown Rx tablet,extended release Allergies Allergy/AdvReac Type Severity Reaction Status Date / Time morphine Allergy ADR-Vomitin Verified 12/29/22 14:42 g Current Medications Generic Name Dose Route Start Last Admin Trade Name Chantale PRN Reason Stop Dose Admin Apixaban 5 mg 12/30/22 18:00 01/02/23 10:31 Apixaban 5 Mg Tablet PO Not Given BID MACK Aspirin 81 mg 12/30/22 09:00 12/31/22 09:04 Aspirin 81 Mg Ec Tablet PO 81 mg DAILY MACK Administration Atorvastatin Calcium 40 mg 12/30/22 09:00 01/02/23 10:31 Atorvastatin 40 Mg Tablet PO Not Given DAILY MACK Folic Acid 1 mg 12/30/22 09:00 01/02/23 10:32 Folic Acid 1 Mg Tablet PO Not Given DAILY MACK Thiamine HCl 500 mg/ Sodium 105 mls @ 210 mls/hr 01/02/23 18:00 01/02/23 19:53 Chloride IV Infused BID MACK Infusion Dextrose/Sodium Chloride 1,000 mls @ 75 mls/hr 01/02/23 14:15 01/03/23 05:28 Dextrose 5%-Sod Chloride 0.9% IV 75 mls/hr .[id number] MACK Administration Lidocaine HCl 5 ml/ Potassium 105 mls @ 26.25 mls/hr 01/03/23 07:00 01/03/23 07:06 Chloride IV 01/03/23 10:59 26.25 mls/hr ONCE ONE Administration Levofloxacin 750 mg 01/02/23 06:00 01/03/23 05:33 Levofloxacin 750 Mg Tablet PO Not Given DAILY@0600 [facility] Protocol Levothyroxine Sodium 150 mcg 12/30/22 09:00 01/02/23 10:32 Levothyroxine 150 Mcg Tablet PO Not Given DAILY MACK Magnesium Oxide 200 mg 12/29/22 20:30 01/02/23 17:24 Magnesium Oxide 400 Mg Tablet PO Not Given BID [facility] Pantoprazole Sodium 40 mg 12/30/22 09:00 01/02/23 10:[address] 40 Mg Tablet PO Not Given DAILY MACK Potassium Chloride 20 meq 12/30/22 09:00 01/02/23 10:33 Potassium Chloride Er 20 Meq Tablet PO Not Given DAILY MACK Senna/Docusate Sodium 1 tab 12/30/22 09:00 01/02/23 10:34 Sennosides-Docusate Tablet PO Not Given DAILY MACK PFSH Acute PFSH: Medical History Acute UTI Altered mental status Atrial fibrillation Chronic anticoagulation Fall Hyperlipidemia Hypothyroidism s/p thyroidectomy for thyroid CA Recurrent falls Thyroid cancer s/p thyroidectomy Urinary tract infection Vitals/I&O/Wt Last Vital Signs Temp 98.2 F 01/03/23 07:09 Pulse 92 01/03/23 07:09 Resp 17 01/03/23 07:09 BP 132/82 01/03/23 07:09 Pulse Ox 98 01/03/23 07:09 O2 Del Method Room Air 01/03/23 07:09 01/02/23 01/03/23 01/03/23 22:59 06:59 14:59 Intake Total 105 / 710 922.5 / 1632.5 Balance 105 / 710 922.5 / 1632.5 Physical Exam Narrative: GENERAL: Thin woman with wizzened complexion. MENTAL STATUS: She was oriented to herself. Initially she was a little bit lethargic and did not want to wake up but later she was cooperative and willing to converse. She says she is in [place] this morning. She says she needs to get up and shower and get dressed because she has things to do. She remembered 0 of 3 objects after distraction. Grossly she appears to be moderately demented. She was able to remember that her right toe was taken for infection in the bone. CRANIAL NERVES: Visual mcintosh were full to counting fingers OU. Extraocular movements were full but she exhibits visual motor perseveration. Face was symmetric at rest and with grimace. Facial sensation intact to touch. Tongue and palate were midline at rest and with protrusion of the tongue and elevation of the palate. She was not dysarthric. Shoulders were symmetric at rest and with shoulder shrug. MOTOR: No asterixis. No tremor. No drift of the extended arms. Fine movements slow but symmetric. She is able to lift each of the legs from the bed vigorously into the air and perform [id number]. SENSATION: Pin and touch intact in the feet and hands. COORDINATION: No tremor. No asterixis. DEEP TENDON REFLEXES: Right great toe surgically absent. Left toe upgoing with plantar stimulation. Hyporeflexic throughout GAIT: She refused to get up on the side of the bed or put her feet down because she said she was cold. CARDIOVASCULAR: The heart sounds were normal without murmur or gallop. Regular rate and rhythm. Chest: Clear to auscultation Extremities: She has had removal of the right great toe for osteomyelitis Urinary Catheter Management: Soriano: Cath Placed During This Visit: yes, but has since been removed by the nurse Reason for Continuing Indwelling Catheter: Acute Urinary Retention or Obstruction Urinary Catheter Date of Insertion: 12/29/22 Urinary Catheter Time of Insertion: 21:03 Date Urinary Catheter Removed: 01/01/23 Time Urinary Catheter Discontinued: 11:57 Data 01/02/23 05:58 01/03/23 05:59 A&P Assessment and plan (1) Dementia: 67-year-old woman with overuse of alcohol, hallucinosis and increasing problems with loss of balance and delirium. There is evidence of a progressive dementia and Lewy body dementia would be a strong consideration because she has had multiple episodes of worsening, hallucinations and loss of balance. She has been much worse since she has had multiple falls with head injuries. This is consistent with multiple concussions and postconcussive syndrome aggravating her underlying dementia. Currently she is not able to return home. I will be glad to see her in the clinic for follow-up. I would like her to have an EEG as an outpatient. She was willing to come see me in the clinic. I agree with quetiapine which seems to be helping with her mood and her hallucinations. Agree with thiamine and multivitamins as her nutritional state is very poor. Thanks for asking me to see this patient and participate in her care. (2) Dementia associated with alcoholism without behavioral disturbance: (3) Concussion: (4) Wernicke-Korsakoff psychosis: (5) Acute hyperactive delirium due to another medical condition: (6) Recurrent falls: Consult Attestations Medical Necessity Statement: The patient is unable to return home due to very poor balance with recurrent falls, multiple concussions. Combination of acute delirium, concussions and underlying probable dementia. Coding Level of Care Code Acute Code for [facility] Fwd Diagnoses Dementia F03.90 Dementia associated with alcoholism without behavioral disturbance F10.27 Concussion S06.0XAA Wernicke-Korsakoff psychosis F04 Acute hyperactive delirium due to another medical condition F05 Recurrent falls R29.6
[2023-01-03] MEDS: potassium chloride oral liq 20 mEq/15 mL UDC 40 MEQ PO (08:36)
--- NOTE | 2023-01-03 09:50 | P.DS_ITS ---
Discharge Providers Date of Admission: 12/29/22 16:50 Date of Discharge: January 02, 2023 Attending Provider at Admission: Tiny Padilla MD Attending Provider at Discharge: Tiny Padilla MD Primary Care Provider: Anton Martin MD Diagnoses at Discharge Discharge Diagnosis (1) Wernicke-Korsakoff psychosis: Status: Acute (2) Acute hyperactive delirium due to another medical condition: Status: Acute (3) Low TSH level: Status: Acute (4) Acute hypokalemia: Status: Acute (5) Hypomagnesemia: Status: Acute (6) Contusion of multiple sites: Status: Acute (7) Elevated CK: Status: Acute (8) Hypothyroidism: Status: Acute Permanent problem details: s/p thyroidectomy for thyroid CA (9) Atrial fibrillation: Status: Acute (10) Altered mental status: Status: Acute (11) Acute UTI: Status: Inactive (12) Benzodiazepine dependence: Status: Inactive Reason for Visit Reason for Visit: ams Hospital Course Hospital Course 67-year female who was readmitted after recent discharge from the hospital when she was admitted for altered mental status, considering history of daily liquor use we decided to treat her with folic acid and thiamine, responded very well to IV thiamine high-dose, she did not show any signs of stroke, head MRI unremarkable as per radiologist by Dr. Vázquez did comment on FLAIR around thalamic region, she is on levothyroxine, carries history of thyroid cancer in the past, no electrolyte imbalance, B12 was normal Please note she was on dopaminergic agonist metoclopramide, ropinirole medications which I discontinued, she seemed to exhibit akathisia. Responded well to Seroquel in the hospital She has not shown any signs of stroke, meningitis, my concern is related to Wernicke's encephalopathy/Korsakoff syndrome. She was recently evaluated by orthopedic surgeon at [facility] for her back pain as per the patient no surgical intervention was recommended. Her hemoglobin remained stable, FOBT negative. Severe electrolyte imbalance related to malnourishment no diarrhea or vomiting at all. Please see Dr. Vázquez's note for further details, concern for for Lewy body dementia Patient has been given K rider 40 mEq along 40 mEq oral liquid KCl for her low potassium. No active diarrhea. She remained afebrile, blood pressure stable, patient is awake alert and talking. COVID-negative. Magnesium 1.7. Physical Exam Narrative: Nonfocal neuro exam Multiple skin ulcers GCS 15 Abdomen soft Short attention span Patient confabulates and has poor memory S1, S2 Urinary Catheter Management: Soriano: Cath Placed During This Visit: yes, but has since been removed by the nurse Reason for Continuing Indwelling Catheter: Acute Urinary Retention or Obstruction Urinary Catheter Date of Insertion: 12/29/22 Urinary Catheter Time of Insertion: 21:03 Date Urinary Catheter Removed: 01/01/23 Time Urinary Catheter Discontinued: 11:57 Discharge Data Studies Completed and Pending Completed Studies During Hospitalization Category Date Time Status CT cervical spin wo con* [id number] Stat Cat Scan 12/29/22 14:[address] head wo con* [id number] Stat Cat Scan 12/29/22 14:48 Completed XR chest 1V portable [id number] Stat Exams 12/29/22 14:48 Completed XR pelvis 1-2V* [id number] Stat Exams 12/29/22 14:48 Completed Pending at discharge Category Date Time Status Clostridium Diffi Toxin Reflex Routine Lab 12/31/22 13:41 Received SARS Covid-2 Antigen Stat Lab 01/02/23 07:55 Uncollected Laboratory Results WBC 7.78 10^3/uL (3.29-11.43) 01/02/23 05:58 RBC 3.01 10^6/uL (3.85-5.65) L 01/02/23 05:58 Hgb 9.50 g/dL (11.27-16.99) L 01/02/23 05:58 Hct 29.7 % (36-47) L 01/02/23 05:58 MCV 98.7 fl (85-98) H 01/02/23 05:58 MCH 31.6 pg (27-33) 01/02/23 05:58 MCHC 32.0 g/dL (30-55) 01/02/23 05:58 RDW 19.0 % (12.1-15.1) H 01/02/23 05:58 Plt Count 204 10^3/cmm (157-399) 01/02/23 05:58 MPV 8.6 fL (7.4-10.4) 01/02/23 05:58 Neut % (Auto) 76.7 % 01/02/23 05:58 Lymph % (Auto) 14.4 % 01/02/23 05:58 [place] % (Auto) 6.0 % 01/02/23 05:58 Eos % (Auto) 0.9 % 01/02/23 05:58 Baso % (Auto) 0.5 % 01/02/23 05:58 Neut # (Auto) 5.96 10^3/uL (1.8-7.7) 01/02/23 05:58 Lymph # (Auto) 1.1 10^3/uL (0.8-4.8) 01/02/23 05:58 [place] # (Auto) 0.5 10^3/uL (0.2-0.9) 01/02/23 05:58 Eos # (Auto) 0.1 10^3/uL (0.0-0.8) 01/02/23 05:58 Baso # (Auto) 0.0 10^3/uL (0.0-0.1) 01/02/23 05:58 Nucleated RBC % (auto) 0 % 01/02/23 05:58 Nucleated RBCs # 0.0 /100WBC 01/02/23 05:58 Sodium 141 mmol/L (136-145) 01/02/23 05:58 Potassium 2.8 mmol/L (3.5-5.1) L* 01/02/23 05:58 Chloride 102 mmol/L (98-107) 01/02/23 05:58 Carbon Dioxide 22 mmol/L (22-29) 01/02/23 05:58 Anion Gap 19.8 (5-19) H 01/02/23 05:58 BUN 3 mg/dL (8-23) L 01/02/23 05:58 Creatinine 0.4 mg/dL (0.5-0.9) L 01/02/23 05:58 GFR Calculation 158.3 mL/min (90-130) H 01/02/23 05:58 Glucose 71 mg/dL (65-115) 01/02/23 05:58 Calculated Osmolality 287 mOsm/kg (285-295) 01/02/23 05:58 Lactic Acid 1.4 mmol/L (0.5-2.2) 12/29/22 15:56 Calcium 8.1 mg/dL (8.5-10.5) L 01/02/23 05:58 Phosphorus 2.0 mg/dL (2.5-4.5) L 12/30/22 03:46 Magnesium 1.8 mg/dL (1.7-2.3) 01/01/23 05:05 Total Bilirubin 0.7 mg/dL (0.15-1.2) 01/01/23 05:05 AST 25 U/L (0-32) 01/01/23 05:05 ALT 17 U/L (0-33) 01/01/23 05:05 Alkaline Phosphatase 120 U/L (35-105) H 01/01/23 05:05 Ammonia 16 umol/L (11-51) 12/29/22 15:56 Creatine Kinase 68 U/L (26-192) 01/01/23 05:05 C-Reactive Protein 87.5 mg/L (0.0-4.9) H 12/30/22 03:46 Total Protein 6.0 g/dL (6.6-8.7) L 01/01/23 05:05 Albumin 2.6 g/dL (3.5-5.2) L 01/01/23 05:05 Globulin 3.4 g/dL (1.3-4.6) 01/01/23 05:05 Procalcitonin 0.18 ng/mL (0-0.5) 12/29/22 15:56 Urine Color Yellow (Yellow) 12/29/22 20:52 Urine Appearance Clear (CLEAR) 12/29/22 20:52 Urine pH 5 (5-7) 12/29/22 20:52 Ur Specific [place] 1.015 (1.005-1.030) 12/29/22 20:52 Urine Protein Neg (Negative) 12/29/22 20:52 Urine Glucose (UA) Norm (Normal) 12/29/22 20:52 Urine Ketones 1+ (Negative) H 12/29/22 20:52 Urine Blood Neg (Negative) 12/29/22 20:52 Urine Nitrate Negative (Negative) 12/29/22 20:52 Urine Bilirubin Neg (Negative) 12/29/22 20:52 Urine Urobilinogen Neg mg/dL (Negative) 12/29/22 20:52 Ur Leukocyte Esterase Negative (Negative) 12/29/22 20:52 Salicylates 0.5 mg/dL (3-10) L 12/29/22 15:56 Urine Opiates Screen Positive ng/mL (Negative) H 12/29/22 20:52 Acetaminophen < 5.0 ug/mL (10-30) L 12/29/22 15:56 Ur Barbiturates Screen Negative ng/mL (Negative) 12/29/22 20:52 Ur Phencyclidine Scrn Negative ng/mL (Negative) 12/29/22 20:52 Ur Amphetamines Screen Negative ng/mL (Negative) 12/29/22 20:52 U Benzodiazepines Scrn Negative ng/mL (Negative) 12/29/22 20:52 Urine Cocaine Screen Negative ng/mL (Negative) 12/29/22 20:52 U Marijuana (THC) Screen Negative ng/mL (Negative) 12/29/22 20:52 Ethyl Alcohol < 10 mg/dL (0-10) 12/29/22 15:56 C. difficile Tox (PCR) Cancelled 12/31/22 13:41 Vitals Last Vital Signs Temp 97.5 F L 01/02/23 08:00 Pulse 70 01/02/23 08:22 Resp 16 01/02/23 08:22 BP 92/56 01/02/23 08:00 Pulse Ox 98 01/02/23 08:22 O2 Del Method Room Air 01/02/23 08:22 Discharge Plan Discharge Patient Disposition: Xfer SNF Condition: Stable Prescriptions: Continued sertraline [Zoloft] 100 mg Tablet 100 mg PO BID atorvastatin 40 mg Tablet 40 mg PO DAILY acetaminophen [Tylenol] 325 mg Tablet 650 mg PO Q4H PRN (Reason: Pain) bisacodyl [Dulcolax (bisacodyl)] 10 mg Suppository 10 mg SC DAILY PRN (Reason: Constipation) pantoprazole 40 mg Tablet,Delayed Release (Dr/Ec) 40 mg PO DAILY levothyroxine 150 mcg Tablet 150 mcg PO DAILY gabapentin 300 mg Capsule 300 mg PO TID oxycodone 5 mg Tablet 5 mg PO Q6H PRN (Reason: Pain) Eliquis 5 mg Tablet 5 mg PO BID quetiapine [Seroquel] 25 mg tablet 25 mg PO BEDTIME Qty: 3 0RF potassium chloride 20 mEq tablet extended release 20 meq PO DAILY Qty: 20 0RF thiamine HCl (vitamin B1) 100 mg tablet 100 mg PO DAILY Qty: 60 3RF levofloxacin 750 mg tablet 750 mg PO DAILY 7 Days Qty: 3 0RF magnesium 200 mg tablet 200 mg PO BID Qty: 20 2RF folic acid 1 mg tablet 1 mg PO DAILY Qty: 60 3RF Discontinued sumatriptan succinate 50 mg Tablet See Rx Instructions .ROUTE .COMPLEX Rx Instructions: 50mg po every 24 hours as needed for migraine (may repeat dose after 2 hours up to a max of 200mg in 24 hours) aspirin 81 mg Tablet,Delayed Release (Dr/Ec) 81 mg PO DAILY magnesium hydroxide [Milk of Magnesia] 400 mg/5 mL Suspension 30 ml PO DAILY PRN (Reason: Constipation) Fleet Enema 19-7 gram/118 mL Enema 118 ml SC DAILY PRN (Reason: Constipation) Discharge Orders: Discharge Order (Routine); Ordered 01/03/23 Ordered By: Tiny Padilla Referrals: [facility] [Outside] Anton Martin MD [Primary Care Provider] - Discharge Diet: Regular Discharge Activity: Use walker/crutches as instructed and As per PT/OT instructions Patient Instructions: Opioid Safety Discharge Attestations Time Spent in Discharge Care*: greater than 30 min Quality Metrics Clinical Quality Measures [ No reported AMI, CVA or VTE this stay] Coding Level of Care Code Acute Code for [facility] Fwd Diagnoses Wernicke-Korsakoff psychosis F04 Acute hyperactive delirium due to another medical condition F05 Low TSH level R79.89 Acute hypokalemia E87.6 Hypomagnesemia E83.42 Contusion of multiple sites T07.XXXA Elevated CK R74.8 Hypothyroidism E03.9 Atrial fibrillation I48.91 Altered mental status R41.82 Acute UTI N39.0 Benzodiazepine dependence F13.20
[2023-01-03] MEDS: thiamine 500 MG in sodium chloride 0.9% (100 ml) 100 ML 210 MG IV (09:55)
[2023-01-03 10:50] VITALS: BP 95/58; PULSE 95; RESP 16; TEMP 36.6; O2SAT 99
--- NOTE | 2023-01-03 11:00 | PC.SOCIAL ---
IMM Updated Updated pt's spouse on IMM. No questions voiced. Provided pt a copy. Initialed, dated, & timed copy in chart.
[2023-01-03 15:08] VITALS: BP 95/58; PULSE 95; RESP 16; TEMP 36.6; O2SAT 99
[2023-01-04 16:05] LABS: C.DIFF Yes Test Yes; Clostridium Difficile PCR Q DETECTED (NOT DETECTED)
== END 2023-01-03 15:00 | disposition home health service (06) | DRG 897 ==
LOC: ER 16:54 → MEDSURG 17:22 → CSU 17:33 → MEDSURG 12-30 11:11
PROVIDERS: Admitting Provider Internal Medicine; Emergency Provider Emergency Medicine; PCP Family Medicine Adult Medicine; Visit Provider Internal Medicine
DX: F10.159 Alcohol abuse with alcohol-induced psychotic disorder, unspecified (principal); N39.0 Urinary tract infection, site not specified; F05 Delirium due to known physiological condition; Z85.850 Personal history of malignant neoplasm of thyroid; G31.83 Neurocognitive disorder with Lewy bodies; F02.80 Dementia in other diseases classified elsewhere, unspecified severity, without behavioral disturbance, psychotic disturbance, mood disturbance, and anxiety; E87.6 Hypokalemia; Z79.891 Long term (current) use of opiate analgesic; Z79.01 Long term (current) use of anticoagulants; I95.9 Hypotension, unspecified; Z87.440 Personal history of urinary (tract) infections; I48.91 Unspecified atrial fibrillation; E78.5 Hyperlipidemia, unspecified; E89.0 Postprocedural hypothyroidism; E86.0 Dehydration; S00.83XA Contusion of other part of head, initial encounter; W18.30XA Fall on same level, unspecified, initial encounter; R74.8 Abnormal levels of other serum enzymes
CPT/HCPCS: 36415; 36416; 36430; 36569; 36573; 51702; 70450; 71045; 72125; 72146; 72170; 76000; 80048; 80053; 80074; 80306; 80307; 81001; 81003; 82140; 82274; 82550; 82962; 83036; 83605; 83735; 84100; 84145; 84295; 84443; 85014; 85018; 85025; 85610; 86140; 86850; 86900; 86920; 87040; 87324; 87426; 87449; 87493; 87806; 92523; 92610; 93005; 94664; 96361; 96365; 96367; 96374; 96375; 96376; 97116; 97161; 97167; 97530; 97535; 99285; C1751; J0690; J0696; J1100; J1720; J2060; J2543; J2704; J2710; J3010; J3370; J3411; J3475; J3480; J3490; J7030; J7040; J7042; J7120; J7799; P9016; Q3014

== ENCOUNTER 2023-01-05 19:27 | Inpatient (IN) | payer MEDICARE, SELFPAY ==
[2023-01-05 19:27] VITALS: BP 124/86; PULSE 109; RESP 10; TEMP 36.9; O2SAT 97; BMI 20.5
--- NOTE | 2023-01-05 19:28 | XRR_ITS ---
PROCEDURE INFORMATION: Exam: XR Chest Exam date and time: 01/05/2023 8:11 PM Age: 67 years old Clinical indication: Other: Weakness; AMS TECHNIQUE: Imaging protocol: Radiologic exam of the chest. Views: 1 view. COMPARISON: CR (CHEST, ) 12/29/2022 3:18 PM FINDINGS: Lungs: Unremarkable. No consolidation. Pleural spaces: Unremarkable. No pleural effusion. No pneumothorax. Heart/Mediastinum: Unremarkable. No cardiomegaly. Bones/joints: Multiple vertebroplasties noted within the midthoracic spine. Mild dextroscoliosis of the thoracic spine. Visualized osseous structures are intact. XR/XR chest 1V portable [id number] IMPRESSION: No acute findings.
--- NOTE | 2023-01-05 19:29 | ECG_ITS ---
[facility] Test Date: 2023-01-05 Pat Name: Chrissy Pantoja Department: Room: Gender: Female Media Associate: : [id number] Requested By: Parker Santana Order Number: [id number] Aurelio MD: William Mcguire M.D. Measurements Intervals [place] Rate: 103 P: 71 FL: 141 QRS: 56 QRSD: 81 T: 35 QT: 355 QTc: 466 Interpretive Statements SINUS TACHYCARDIA WITH OCCASIONAL SUPRAVENTRICULAR PREMATURE COMPLEXES ST DEVIATION AND MODERATE T-WAVE ABNORMALITY, CONSIDER LATERAL ISCHEMIA [-0.1+ mV T-WAVE IN I/aVL/V5/V6] Compared to ECG 12/27/2022 04:40:14 T-wave abnormality now present Possible ischemia now present Sinus rhythm no longer present ST (T wave) deviation no longer present Electronically Signed On 01-06-2023 9:38:20 CDT by William Mcguire M.D. [id number]
--- NOTE | 2023-01-05 19:32 | CTR_ITS ---
PROCEDURE INFORMATION: Exam: CT Head Without Contrast Exam date and time: 01/05/2023 8:05 PM Age: 67 years old Clinical indication: Altered mental status/memory loss; Additional info: AMS TECHNIQUE: Imaging protocol: Computed tomography of the head without contrast. Radiation optimization: All CT scans at this facility use at least one of these dose optimization techniques: automated exposure control; mA and/or kV adjustment per patient size (includes targeted exams where dose is matched to clinical indication); or iterative reconstruction. REPORTING DATA: Count of CT and Cardiac NM exams in prior 12 months: This patient has received 5 known CTs and 0 known cardiac nuclear medicine studies in the 12 months prior to the current study. COMPARISON: CT head wo con* [id number] 12/29/2022 3:24 PM RADIATION DOSE METRICS: Total DLP (mGy-cm): 1004.68 FINDINGS: Brain: No hemorrhage. No edema. Mild diffuse cerebral atrophy and sequela of chronic small vessel ischemic disease. No mass effect. Cerebral ventricles: No ventriculomegaly. Paranasal sinuses: Visualized sinuses are unremarkable. No fluid levels. Mastoid air cells: Visualized mastoid air cells are well aerated. Bones/joints: Unremarkable. No acute fracture. Soft tissues: Unremarkable. CT/CT head wo con* [id number] IMPRESSION: No acute intracranial abnormality.
[2023-01-05 19:45] VITALS: BP 124/86; PULSE 105; RESP 21; O2SAT 98
[2023-01-05 19:50] LABS: Basophils % 0.2 %; Hematocrit 28.8 % (36-47); Lymphocytes # 0.7 10^3/uL (0.8-4.8); Mean Corpuscular HGB Conc 31.9 g/dL (30-55); Mean Corpuscular Hemoglobin 32.2 pg (27-33); Mean Corpuscular Volume 100.7 fl (85-98); Mean Platelet Volume 8.9 fL (7.4-10.4); Monocytes # 0.8 10^3/uL (0.2-0.9); Monocytes % 6.9 %; Neutrophils # 10.35 10^3/uL (1.8-7.7); Neutrophils % 86.2 %; Nucleated Red Blood Cells % 0 %; Platelet Count 253 10^3/cmm (157-399); Red Blood Count 2.86 10^6/uL (3.85-5.65); Red Cell Distribution Width 21.2 % (12.1-15.1)
--- NOTE | 2023-01-05 19:51 | W.ED.AMS ---
HPI - Altered Mental Status General: Chief Complaint: Altered Mental Status Stated Complaint: weakness, confusion Time Seen by Provider: 01/05/23 19:28 Source: EMS Mode of arrival: EMS Limitations: altered mental status History of Present Illness: 67-year-old female with long history of alcoholism she has been here multiple times and actually just left the hospital 2 days ago for altered mental status EMS states that the neighbors is just seen her set in the garage over the last 2 days EMS was called and she was just sitting in her wheelchair in the garage patient here is no able answer any questions is not even able to tell me her name. Review of Systems General: Reports: ROS unobtainable due to mental status PFSH ED PFSH: Medical History Acute hypokalemia Acute UTI Altered mental status Atrial fibrillation Benzodiazepine dependence Chronic anticoagulation Contusion of multiple sites Elevated CK Fall Hyperlipidemia Hypomagnesemia Hypothyroidism s/p thyroidectomy for thyroid CA Low TSH level Recurrent falls Thyroid cancer s/p thyroidectomy Urinary tract infection Wernicke-Korsakoff psychosis Physical Exam Const: COMMON NORMALS: negative for patient oriented x3 GENERAL APPEARANCE: disheveled HENMT: COMMON NORMALS: normocephalic and atraumatic HEAD & SCALP: normocephalic and atraumatic Eye: COMMON NORMALS: Equal, round and reactive pupils present and conjunctivae normal CONJUNCTIVA: Yes conjunctivae normal PUPIL: Yes Equal, round and reactive pupils present Neck/C-Spine: COMMON NORMALS: supple Chest: COMMONS NORMALS: normal inspection of the chest Resp: COMMON NORMALS: normal respiratory effort and clear to auscultation bilaterally EFFORT & INSPECTION: Yes able to speak in complete sentences AUSCULTATION: clear to auscultation bilaterally Cardio: COMMON NORMALS: regular rate and regular rhythm RATE: regular rate RHYTHM: regular rhythm GI: COMMON NORMALS: Normal to inspection, nondistended, normoactive bowel sounds present, Soft to palpation and non-tender PALPATION: Yes Soft to palpation Extremity: COMMON NORMALS: normal to inspection Neuro: COMMON NORMALS: negative for patient oriented x3 Psych: COMMON NORMALS: negative for mental status grossly normal Skin: COMMON NORMALS: no rashes or lesions noted GENERAL SKIN EXAM: no rashes or lesions noted Course Vital Signs: Vital signs: Vital Signs Temperature 98.5 F 01/05/23 19:27 Pulse Rate 109 H 01/05/23 19:27 Respiratory Rate 10 L 01/05/23 19:27 Blood Pressure 124/86 01/05/23 19:27 Pulse Oximetry 97 01/05/23 19:27 Oxygen Delivery Me thod Room Air 01/05/23 19:27 MDM - Altered Mental Status Medical Decision Making Patient presents here with confusion extremely altered she also has acute kidney injury likely from dehydration I spoke to the hospitalist will admit at this time. Medical Records I reviewed the patient's medical records. Lab Data I reviewed the patient's lab results. 01/05/23 19:43 01/05/23 19:43 Radiology Impressions Chest X-Ray 01/05/23 19:28 IMPRESSION: No acute findings. Head CT 01/05/23 19:32 IMPRESSION: No acute intracranial abnormality. Laboratory Results WBC 12.00 10^3/uL (3.29-11.43) H 01/05/23 19:43 RBC 2.86 10^6/uL (3.85-5.65) L 01/05/23 19:43 Hgb 9.20 g/dL (11.27-16.99) L 01/05/23 19:43 Hct 28.8 % (36-47) L 01/05/23 19:43 MCV 100.7 fl (85-98) H 01/05/23 19:43 MCH 32.2 pg (27-33) 01/05/23 19:43 MCHC 31.9 g/dL (30-55) 01/05/23 19:43 RDW 21.2 % (12.1-15.1) H 01/05/23 19:43 Plt Count 253 10^3/cmm (157-399) 01/05/23 19:43 MPV 8.9 fL (7.4-10.4) 01/05/23 19:43 Neut % (Auto) 86.2 % 01/05/23 19:43 Lymph % (Auto) 6.0 % 01/05/23 19:43 [place] % (Auto) 6.9 % 01/05/23 19:43 Eos % (Auto) 0.0 % 01/05/23 19:43 Baso % (Auto) 0.2 % 01/05/23 19:43 Neut # (Auto) 10.35 10^3/uL (1.8-7.7) H 01/05/23 19:43 Lymph # (Auto) 0.7 10^3/uL (0.8-4.8) L 01/05/23 19:43 [place] # (Auto) 0.8 10^3/uL (0.2-0.9) 01/05/23 19:43 Eos # (Auto) 0.0 10^3/uL (0.0-0.8) 01/05/23 19:43 Baso # (Auto) 0.0 10^3/uL (0.0-0.1) 01/05/23 19:43 Nucleated RBC % (auto) 0 % 01/05/23 19:43 Nucleated RBCs # 0.0 /100WBC 01/05/23 19:43 PT 23.00 SECONDS (12.1-14.9) H 01/05/23 19:43 INR 1.95 (0.8-1.2) H 01/05/23 19:43 Sodium 144 mmol/L (136-145) 01/05/23 19:43 Potassium 4.2 mmol/L (3.5-5.1) 01/05/23 19:43 Chloride 106 mmol/L (98-107) 01/05/23 19:43 Carbon Dioxide 21 mmol/L (22-29) L 01/05/23 19:43 Anion Gap 21.2 (5-19) H 01/05/23 19:43 BUN 14 mg/dL (8-23) 01/05/23 19:43 Creatinine 2.5 mg/dL (0.5-0.9) H 01/05/23 19:43 GFR Calculation 19.1 mL/min (90-130) L 01/05/23 19:43 Glucose 99 mg/dL (65-115) 01/05/23 19:43 Calculated Osmolality 299 mOsm/kg (285-295) H 01/05/23 19:43 Calcium 9.2 mg/dL (8.5-10.5) 01/05/23 19:43 Magnesium 1.7 mg/dL (1.7-2.3) 01/05/23 19:43 Total Bilirubin 0.6 mg/dL (0.15-1.2) 01/05/23 19:43 AST 28 U/L (0-32) 01/05/23 19:43 ALT 21 U/L (0-33) 01/05/23 19:43 Alkaline Phosphatase 139 U/L (35-105) H 01/05/23 19:43 Ammonia 10 umol/L (11-51) L 01/05/23 19:43 Creatine Kinase 112 U/L (26-192) 01/05/23 19:43 Total Protein 7.0 g/dL (6.6-8.7) 01/05/23 19:43 Albumin 3.3 g/dL (3.5-5.2) L 01/05/23 19:43 Globulin 3.7 g/dL (1.3-4.6) 01/05/23 19:43 TSH 10.76 uIU/mL (0.27-4.20) H 01/05/23 19:43 Ethyl Alcohol < 10 mg/dL (0-10) 01/05/23 19:43 XR interpretation done by ED provider, pending radiology final review Discharge Plan Discharge Patient Disposition: Admitted As Inpatient Clinical Impression: Altered mental status, Acute kidney injury Condition: Stable Prescriptions: No Action sertraline [Zoloft] 100 mg Tablet 100 mg PO BID thiamine HCl (vitamin B1) 100 mg tablet 100 mg PO DAILY Qty: 60 3RF folic acid 1 mg tablet 1 mg PO DAILY Qty: 60 3RF magnesium 200 mg tablet 200 mg PO BID Qty: 20 2RF potassium chloride 20 mEq tablet extended release 20 meq PO DAILY Qty: 20 0RF atorvastatin 40 mg Tablet 40 mg PO DAILY acetaminophen [Tylenol] 325 mg Tablet 650 mg PO Q4H PRN (Reason: Pain) bisacodyl [Dulcolax (bisacodyl)] 10 mg Suppository 10 mg GA DAILY PRN (Reason: Constipation) pantoprazole 40 mg Tablet,Delayed Release (Dr/Ec) 40 mg PO DAILY levothyroxine 150 mcg Tablet 150 mcg PO DAILY gabapentin 300 mg Capsule 300 mg PO TID oxycodone 5 mg Tablet 5 mg PO Q6H PRN (Reason: Pain) Eliquis 5 mg Tablet 5 mg PO BID quetiapine [Seroquel] 25 mg tablet 25 mg PO BEDTIME Qty: 3 0RF Referrals: Anton Martin MD [Primary Care Provider] - Patient Instructions: Hyponatremia (ED), Benzodiazepine Use Disorder (ED), Dementia (ED), Non-diabetic Hypoglycemia (ED), Hypoglycemia in a Person with Diabetes (ED), Concussion (ED), Alcohol Intoxication (ED), Subarachnoid Hemorrhage (GEN), Altered Mental Status (ED) Coding Level of Care Code ED Oracle Application Architect for Nate Castañeda
[2023-01-05 20:23] LABS: INR 1.95 (0.8-1.2)
[2023-01-05 20:24] LABS: Ammonia 10 umol/L (11-51)
[2023-01-05 20:29] LABS: Alanine Aminotransferase 21 U/L (0-33); Albumin Level 3.3 g/dL (3.5-5.2); Alkaline Phosphatase 139 U/L (35-105); Anion Gap 21.2 (5-19); Aspartate Amino Transferase 28 U/L (0-32); Blood Urea Nitrogen 14 mg/dL (8-23); Calcium 9.2 mg/dL (8.5-10.5); Carbon Dioxide 21 mmol/L (22-29); Chloride 106 mmol/L (98-107); Creatine Phosphokinase 112 U/L (26-192); Globulin 3.7 g/dL (1.3-4.6); Glomerular Filtration Rate 19.1 mL/min (90-130); Glucose 99 mg/dL (65-115); Magnesium 1.7 mg/dL (1.7-2.3); Osmolality Calculated 299 mOsm/kg (285-295); Potassium 4.2 mmol/L (3.5-5.1); Sodium 144 mmol/L (136-145); Thyroid Stimulating Hormone 10.76 uIU/mL (0.27-4.20); Total Bilirubin 0.6 mg/dL (0.15-1.2)
[2023-01-05 20:30] LABS: Alcohol Level < 10 mg/dL (0-10)
[2023-01-05] MEDS: sodium chloride 0.9% 1,000 ML 999 ML IV (21:38)
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
[2023-01-05 22:48] VITALS: BP 114/69; PULSE 109; RESP 20; O2SAT 97
[2023-01-05 23:07] VITALS: BP 130/59; PULSE 108; RESP 24; O2SAT 96
[2023-01-05 23:47] LABS: Protein Urine 1+ (Negative); Urine Appearance Hazy (CLEAR); Urine Color Dark Yellow (Yellow); pH Urine 5 (5-7)
[2023-01-05 23:48] LABS: Add Urine Microscopic? YES; Bilirubin Urine 1+ (Negative); Blood Urine 2+ (Negative); Glucose Urine UA 1+ (Normal); Ketones Urine 1+ (Negative); Leukocyte Esterase Urine 2+ (Negative); Nitrate Urine Negative (Negative); Urobilinogen Urine Neg (Negative)
[2023-01-05 23:55] LABS: RBC Urine RARE /hpf (0-2); Squamous Epithelial Cell Urine 0-4 /hpf (0-5); WBC Urine 0-4 /hpf (0-5)
[2023-01-05 23:56] LABS: Add Urine Culture? No; Hyaline Casts Urine 0-4 /lpf
[2023-01-06] VITALS (8 sets, daily range): BP systolic 90–127; BP diastolic 50–78; PULSE 83–108; RESP 13–16; TEMP 36.6–37.2; O2SAT 91–97
[2023-01-06 01:32] LABS: C Reactive Protein 115.4 mg/L (0.0-4.9); Lactic Sepsis W/Reflex 1.3 mmol/L (0.5-2.2)
[2023-01-06 01:33] LABS: Alcohol Level < 10 mg/dL (0-10)
[2023-01-06 01:40] LABS: Procalcitonin 1.18 ng/mL (0-0.5)
[2023-01-06 01:46] LABS: HIV 1 & 2 Antibody Non-Reactive (Non-Reactiv); HIV 1 & 2 Antigen Non-Reactive (Non-Reactiv)
[2023-01-06 01:48] LABS: Charge for UA Resulting for Rev
[2023-01-06 01:58] LABS: Hepatitis A Antibody IgM Non-Reactive (Nonreactive); Hepatitis B Core IgM Non-Reactive (Nonreactive); Hepatitis B Surface Antigen Non-Reactive (Nonreactive); Hepatitis C Virus Antibody Non-Reactive (Nonreactive)
[2023-01-06 01:58] LABS: Add Urine Microscopic? YES; Bilirubin Urine Neg (Negative); Blood Urine 2+ (Negative); Glucose Urine UA 2+ (Normal); Ketones Urine 1+ (Negative); Leukocyte Esterase Urine 1+ (Negative); Nitrate Urine Negative (Negative); Protein Urine 1+ (Negative); Specific Gravity, Urine 1.025 (1.005-1.030); Urine Appearance Cloudy (CLEAR); Urine Color Yellow (Yellow); Urobilinogen Urine Neg (Negative); pH Urine 5 (5-7)
[2023-01-06 02:02] LABS: Amphetamines Screen Urine Negative (Negative); Barbiturates Screen Urine Negative (Negative); Benzodiazepines Screen Urine Negative (Negative); Cocaine Screen Urine Negative (Negative); Opiate Screen Urine Positive (Negative); PCP Screen Urine Negative (Negative); THC Screen Urine Negative (Negative)
[2023-01-06] MEDS: folic acid 1 MG, multivitamin inj 10 ML, thiamine 100 MG in sodium chloride 0.9% 1,000 ML 252.8 MG IV (02:11)
[2023-01-06] MEDS: cefTRIAXone 1,000 MG in sodium chloride 0.9% (plus) 50 ML 100 MG IV (04:47)
[2023-01-06 04:51] LABS: Basophils % 0.1 %; Hematocrit 23.5 % (36-47); Lymphocytes # 0.9 10^3/uL (0.8-4.8); Lymphocytes % 10.6 %; Mean Corpuscular HGB Conc 31.1 g/dL (30-55); Mean Corpuscular Hemoglobin 32.4 pg (27-33); Mean Corpuscular Volume 104.4 fl (85-98); Mean Platelet Volume 8.8 fL (7.4-10.4); Monocytes # 0.7 10^3/uL (0.2-0.9); Monocytes % 7.6 %; Neutrophils # 7.12 10^3/uL (1.8-7.7); Nucleated Red Blood Cells % 0 %; Platelet Count 185 10^3/cmm (157-399); Red Blood Count 2.25 10^6/uL (3.85-5.65); White Blood Count 8.79 10^3/uL (3.29-11.43)
[2023-01-06 05:12] LABS: Alanine Aminotransferase 16 U/L (0-33); Albumin Level 2.6 g/dL (3.5-5.2); Alkaline Phosphatase 105 U/L (35-105); Anion Gap 16.5 (5-19); Aspartate Amino Transferase 20 U/L (0-32); Blood Urea Nitrogen 14 mg/dL (8-23); Carbon Dioxide 22 mmol/L (22-29); Chloride 112 mmol/L (98-107); Globulin 2.2 g/dL (1.3-4.6); Glomerular Filtration Rate 26.2 mL/min (90-130); Glucose 80 mg/dL (65-115); Magnesium 1.7 mg/dL (1.7-2.3); Osmolality Calculated 303 mOsm/kg (285-295); Phosphorus 3.4 mg/dL (2.5-4.5); Potassium 3.5 mmol/L (3.5-5.1); Sodium 147 mmol/L (136-145); Total Bilirubin 0.4 mg/dL (0.15-1.2); Total Protein 4.8 g/dL (6.6-8.7)
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
[2023-01-06] MEDS: dextrose 5%-sod chloride 0.9% 1,000 ML 50 ML IV (09:01)
[2023-01-06] MEDS: folic acid 1 mg Tablet PO (09:06)
[2023-01-06] MEDS: thiamine 100 mg Tablet PO (09:06)
[2023-01-06] MEDS: levothyroxine 150 mcg Tablet PO (09:06)
[2023-01-06] MEDS: pantoprazole DR 40 mg Tablet PO (09:06)
[2023-01-06] MEDS: gabapentin 300 mg Capsule PO ×3 (09:06→23:06)
[2023-01-06] MEDS: sertraline 100 mg Tablet PO ×2 (09:06→17:15)
[2023-01-06] MEDS: magnesium oxide 400 mg tablet 200 MG PO ×2 (09:06→17:15)
[2023-01-06] MEDS: atorvastatin 40 mg Tablet PO (09:06)
[2023-01-06] MEDS: potassium chloride ER 20 mEq Tablet PO (09:06)
[2023-01-06 09:28] LABS: Sodium 146 mmol/L (136-145)
--- NOTE | 2023-01-06 09:44 | PC.PHAR ---
PT UNABLE TO VERFY LAST TIME SHE TOOK HOME MEDICATIONS.
--- NOTE | 2023-01-06 09:45 | PC.OT ---
OT NOTE: OT EVALUATION ORDERS RECEIVED. PER OT WEEKEND PROTOCOL; PATIENT WILL BE ASSESSED SUNDAY.
--- NOTE | 2023-01-06 11:46 | PC.SLP ---
Patient not alert enough to participate with speech therapist. Nursing staff reported she took medication with water on todays date with no s/s of aspiration. COLLEGE SCOUTING COORDINATOR will check again tomorrow to complete evaluation.
[2023-01-07 03:50] VITALS: BP 92/57; PULSE 82; RESP 15; TEMP 36.8; O2SAT 94
[2023-01-07] MEDS: dextrose 5%-sod chloride 0.9% 1,000 ML 50 ML IV (04:06)
[2023-01-07] MEDS: cefTRIAXone 1,000 MG in sodium chloride 0.9% (plus) 50 ML 100 MG IV (04:08)
[2023-01-07 04:40] LABS: Basophils % 0.1 %; Eosinophils % 0.6 %; Hematocrit 25.5 % (36-47); Lymphocytes # 1.1 10^3/uL (0.8-4.8); Lymphocytes % 14.9 %; Mean Corpuscular HGB Conc 30.6 g/dL (30-55); Mean Corpuscular Hemoglobin 32.1 pg (27-33); Mean Corpuscular Volume 104.9 fl (85-98); Mean Platelet Volume 8.9 fL (7.4-10.4); Monocytes # 0.4 10^3/uL (0.2-0.9); Monocytes % 6.1 %; Neutrophils % 77.9 %; Nucleated Red Blood Cells % 0 %; Platelet Count 185 10^3/cmm (157-399); Red Blood Count 2.43 10^6/uL (3.85-5.65); Red Cell Distribution Width 20.8 % (12.1-15.1); White Blood Count 7.06 10^3/uL (3.29-11.43)
[2023-01-07 04:55] LABS: Anion Gap 10.7 (5-19); Blood Urea Nitrogen 8 mg/dL (8-23); Calcium 7.7 mg/dL (8.5-10.5); Carbon Dioxide 25 mmol/L (22-29); Chloride 115 mmol/L (98-107); Glucose 85 mg/dL (65-115); Osmolality Calculated 304 mOsm/kg (285-295); Sodium 148 mmol/L (136-145)
[2023-01-07 05:02] LABS: Potassium 2.7 mmol/L (3.5-5.1)
[2023-01-07] MEDS: lidocaine 1% 5 ML in potassium chloride premix 100 ML 26.25 ML IV ×2 (06:13→10:44)
[2023-01-07 07:40] VITALS: BP 91/51; PULSE 87; RESP 18; TEMP 36.4; O2SAT 97
[2023-01-07 08:53] LABS: Magnesium 1.7 mg/dL (1.7-2.3)
[2023-01-07] MEDS: thiamine 100 mg Tablet PO (09:03)
[2023-01-07] MEDS: potassium chloride ER 20 mEq Tablet PO (09:03)
[2023-01-07] MEDS: levothyroxine 150 mcg Tablet PO (09:03)
[2023-01-07] MEDS: sertraline 100 mg Tablet PO ×2 (09:03→17:53)
[2023-01-07] MEDS: atorvastatin 40 mg Tablet PO (09:03)
[2023-01-07] MEDS: folic acid 1 mg Tablet PO (09:03)
[2023-01-07] MEDS: magnesium oxide 400 mg tablet 200 MG PO ×2 (09:03→17:53)
[2023-01-07] MEDS: pantoprazole DR 40 mg Tablet PO (09:03)
[2023-01-07] MEDS: gabapentin 300 mg Capsule PO ×3 (09:03→21:13)
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
[2023-01-07 12:00] VITALS: BP 75/46; PULSE 86; RESP 19; TEMP 36.1; O2SAT 98
[2023-01-07 16:00] VITALS: BP 90/60; PULSE 70; RESP 22; TEMP 36.7; O2SAT 96
--- NOTE | 2023-01-07 16:03 | PC.NURSE ---
Vascular Access - ASO Consulted by house charge for midline placement. Upon arrival to room, discussed procedure with patient and obtained written consent. Assessed BUE under ultrasound guidance and determined the right brachial vein to be the best target vessel due to its size and lack of evidence of thrombus or stenosis. Using ultrasound guidance, MST, and sterile technique, the vein was accessed x 1 venipuncture. Device advanced without resistance, aspirated and flushed with ease. Device secured with sterile dressing utilizing stat-lock securement and biopatch at insertion site. EBL < 10 mL. Patient tolerated well. Reported to pt's primary nurse Truong. [ End ]
[2023-01-07] MEDS: dextrose 5%-sod chloride 0.45% 1,000 ML 100 ML IV (17:53)
[2023-01-07 20:00] VITALS: BP 92/51; PULSE 63; RESP 18; TEMP 37; O2SAT 96
[2023-01-08] VITALS (9 sets, daily range): BP systolic 73–100; BP diastolic 35–59; PULSE 64–103; RESP 16–18; TEMP 36.3–37.3; O2SAT 94–95
[2023-01-08] MEDS: dextrose 5%-sod chloride 0.45% 1,000 ML 100 ML IV (04:04)
[2023-01-08] MEDS: cefTRIAXone 1,000 MG in sodium chloride 0.9% (plus) 50 ML 100 MG IV (04:06)
[2023-01-08 04:12] LABS: Basophils % 0.3 %; Eosinophils # 0.1 10^3/uL (0.0-0.8); Hematocrit 26.3 % (36-47); Lymphocytes # 1.2 10^3/uL (0.8-4.8); Lymphocytes % 15.1 %; Mean Corpuscular Hemoglobin 32.4 pg (27-33); Mean Corpuscular Volume 107.8 fl (85-98); Mean Platelet Volume 9.4 fL (7.4-10.4); Monocytes # 0.5 10^3/uL (0.2-0.9); Monocytes % 6.8 %; Neutrophils # 5.81 10^3/uL (1.8-7.7); Neutrophils % 76.3 %; Nucleated Red Blood Cells % 0 %; Platelet Count 169 10^3/cmm (157-399); Red Blood Count 2.44 10^6/uL (3.85-5.65); Red Cell Distribution Width 19.9 % (12.1-15.1); White Blood Count 7.62 10^3/uL (3.29-11.43)
[2023-01-08 04:41] LABS: Anion Gap 10.7 (5-19); Blood Urea Nitrogen 6 mg/dL (8-23); Calcium 7.4 mg/dL (8.5-10.5); Carbon Dioxide 22 mmol/L (22-29); Chloride 113 mmol/L (98-107); Glomerular Filtration Rate 99.1 mL/min (90-130); Glucose 89 mg/dL (65-115); Osmolality Calculated 293 mOsm/kg (285-295); Sodium 143 mmol/L (136-145)
[2023-01-08 04:42] LABS: Potassium 2.7 mmol/L (3.5-5.1)
[2023-01-08] MEDS: lidocaine 1% 5 ML in potassium chloride premix 100 ML 26.25 ML IV (06:05)
[2023-01-08] MEDS: gabapentin 300 mg Capsule PO ×3 (08:43→20:53)
[2023-01-08] MEDS: thiamine 100 mg Tablet PO (08:43)
[2023-01-08] MEDS: folic acid 1 mg Tablet PO (08:43)
[2023-01-08] MEDS: atorvastatin 40 mg Tablet PO (08:43)
[2023-01-08] MEDS: sertraline 100 mg Tablet PO ×2 (08:43→17:34)
[2023-01-08] MEDS: pantoprazole DR 40 mg Tablet PO (08:44)
[2023-01-08] MEDS: potassium chloride ER 20 mEq Tablet PO (08:44)
[2023-01-08] MEDS: magnesium oxide 400 mg tablet 200 MG PO ×2 (08:44→17:34)
[2023-01-08] MEDS: levothyroxine 150 mcg Tablet PO (08:44)
--- NOTE | 2023-01-08 10:21 | MR_ITS ---
WS: [id number] MRI THORACIC SPINE noncontrast HISTORY: T12 fracture. COMPARISON: Thoracic spine radiographs 12/27/2022 and lumbar spine 12/27/2022 TECHNIQUE: Multiplanar sequences are performed in sagittal and axial planes. Significant motion artifact due to the breathing during the examination. Very slight anterior wedging of C5. Moderate RIGHT curvature thoracic spine. Consecutive vertebroplasties at T6, T7 and T8 with mild loss of height. Moderate anterior wedging of T12. There is a very tiny amount of increased T2 signal in the superior vertebral body but there is n o retropulsion. Axial imaging is nondiagnostic due to severe motion. T10-11: Shallow central disc protrusion does not contact the cord. Diffuse marrow edema throughout the L1 vertebral body. Severe compression deformity by greater than 50% with 3 mm retropulsion of the posterior superior endplate. Biconcave L1 fracture with fluid. The re is mild encroachment upon the LEFT lateral thecal sac with additional edema noted within the LEFT lateral facet joint. There is disc and osteophyte encroaching upon the LEFT lateral thecal sac. IMPRESSION: 1. Severe acute compression deformity at L1 with 3 mm retropulsion. There is disc and osteophyte cont acting but not displacing the LEFT lateral cord. 2. Very minimal increased T2 signal in the anterior T12 vertebral body. Minimal trabecular injury may be present. This is superimposed on a chronic T12 compression fracture. 3. Consecutive vertebral plasties at T6, T7 and T8. 4. Study is significantly compromised by breathing motion artifact. 6. Dextroscoliosis.
--- NOTE | 2023-01-08 10:25 | PM.PN ---
Subjective Subjective: Discussed x-ray findings of thoracic region with Dr. Hernadez who is recommending MRI of thoracic region to see acute versus old compression fracture T12 to see if patient would require kyphoplasty We will request MRI Patient is eating breakfast Hyponatremia improved No fever Discontinue IV antibiotics for UTI Anemia: Stable Potassium repleted this morning No active diarrhea C. difficile toxin is positive Vitals/I&O/Wt Last Vital Signs Temp 97.4 F L 01/08/23 08:00 Pulse 81 01/08/23 08:00 Resp 16 01/08/23 08:00 BP 93/57 01/08/23 08:00 Pulse Ox 94 01/08/23 08:00 O2 Del Method Room Air 01/07/23 16:00 01/07/23 01/08/23 01/08/23 22:59 06:59 14:59 Intake Total 600 / 9769.799 6687 / 2669.063 585 / 585 Output Total 575 / 575 350 / 925 Balance 25 / 1044.063 700 / 1744.063 585 / 585 Physical Exam Narrative: No new focal deficit Signs of dehydration improving S1, S2 Currently on room air GCS 15 Pleasant and cooperative Eating breakfast Petechiae and bruises improving Urinary Catheter Management: Soriano: Cath Placed During This Visit: yes Reason for Continuing Indwelling Catheter: Assist healing open wound Urinary Catheter Date of Insertion: 01/06/23 Urinary Catheter Time of Insertion: 01:30 Data 01/08/23 03:37 01/08/23 03:37 A&P Assessment and plan (1) Refeeding syndrome: (2) Heat exhaustion: (3) Muscle wasting: (4) Physical deconditioning: (5) Protein calorie malnutrition: (6) Wernicke-Korsakoff psychosis: (7) Altered mental status: (8) Concussion: (9) Dementia associated with alcoholism without behavioral disturbance: (10) Dementia: Plan Patient has not been able to work with PT, considering recurrent falls and x-ray of T12-L1 compression fracture we will request MRI Case discussed with Dr. Hernadez we will put a consult for him to see if patient would require kyphoplasty As per the patient she has been struggling with back pain and saw orthopedic surgeon in [place] Wernicke's/Korsakoff: Continue thiamine and folic acid UTI: Resolved continue IV antibiotic Dehydration with hyponatremia: Improved Discontinue IV fluids patient is tolerating her diet now Hypothyroidism: Continue levothyroxine Recurrent falls, dementia, Wernicke's: Multiple admissions in the past 7 to 10 days Unsafe home conditions Evaluating for SNF/rehab placement considering recurrent falls due to alcohol-related neuropathy, muscle weakness Rule out cauda equina Full code Discontinue IV fluids Discontinue Soriano catheter Patient was evaluated by Dr. Vázquez on previous admission please read her note for further details Attestations Medical Necessity Statement*: Continue medical management Diagnoses Refeeding syndrome E87.8 Heat exhaustion T67.5XXA Muscle wasting M62.50 Physical deconditioning R53.81 Protein calorie malnutrition E46 Wernicke-Korsakoff psychosis F04 Altered mental status R41.82 Concussion S06.0XAA Dementia associated with alcoholism without behavioral disturbance F10.27 Dementia F03.90
[2023-01-08] MEDS: oxyCODONE 5 mg IR Tab/Cap PO ×2 (10:54→17:38)
--- NOTE | 2023-01-08 12:18 | PC.SOCIAL ---
IMM Update pg 2 of IMM updated and reviewed w/ patient and her over the phone. Copy provided and copy dated, initialed and placed in chart.
--- NOTE | 2023-01-08 14:04 | PC.NURSE ---
MRI pt going down for mri.
[2023-01-08] MEDS: sodium chloride 0.9% 1,000 ML 100 ML IV (16:15)
[2023-01-08 16:22] LABS: Glucose Point of Care 173 mg/dL (70-110)
[2023-01-08] MEDS: nystatin powder 15 gm Btl 1 APPLIC TOPICAL (18:26)
[2023-01-08] MEDS: hydrocortisone 100 mg/2 mL SDV IVP (19:08)
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
[2023-01-09] VITALS (7 sets, daily range): BP systolic 86–108; BP diastolic 42–72; PULSE 80–107; RESP 16–30; TEMP 35.9–37; O2SAT 93–97
[2023-01-09] MEDS: sodium chloride 0.9% 1,000 ML 100 ML IV ×2 (02:01→14:46)
--- NOTE | 2023-01-09 02:09 | PC.NURSE ---
pt was incontinent of bowel and bladder
[2023-01-09] MEDS: hydrocortisone 100 mg/2 mL SDV IVP (05:41)
[2023-01-09 06:46] LABS: Anion Gap 11.3 (5-19); Blood Urea Nitrogen 6 mg/dL (8-23); Calcium 7.4 mg/dL (8.5-10.5); Carbon Dioxide 20 mmol/L (22-29); Chloride 110 mmol/L (98-107); Glomerular Filtration Rate 158.3 mL/min (90-130); Glucose 117 mg/dL (65-115); Osmolality Calculated 285 mOsm/kg (285-295); Potassium 3.3 mmol/L (3.5-5.1); Sodium 138 mmol/L (136-145)
--- NOTE | 2023-01-09 06:54 | P.CONIM_ITS ---
Providers/Reason For Consult Consulting Physician/Specialty*: Orthopedic spine Reason for Consult*: Back pain Attending Physician: Tiny Padilla MD Primary Care Provider: Anton Martin MD History of Present Illness History of Present Illness Chrissy Pantoja is a 67 year old female presented to the emergency room following increased back pain as a result of multiple falls. Orthopedics was consulted she was evaluated in room 262 with no family present. She reports multiple falls with indicating 3 weeks ago she fell out of her brother's truck has had increased back pain since then. She reports a history of previous back fractures where she has had kyphoplasties in [facility] number of years ago. She states the back pain is progressively gotten worse since that fall that she recalls out of the truck. It is sharp stabbing constant in nature bending twisting lifting activities make it much worse rest gives her some short-term relief. She denies any leg pain. States the pain is localized to her low back. She denies any loss of bowel or bladder control. Smokes occasionally. Ranks the pain as 4 of 10 on the pain scale currently. If she gets up and moves she states the pain gets much worse. Review of Systems General: Reports: ROS unobtainable due to mental status Medications/Allergies Home Medications Medication Instructions Recorded Confirmed Last Taken Type sertraline 100 mg tablet (Zoloft) 100 mg PO BID 12/14/22 01/06/23 Unknown History acetaminophen 325 mg tablet 650 mg PO Q4H PRN Pain 12/19/22 01/06/23 Unknown History (Tylenol) apixaban 5 mg tablet (Eliquis) 5 mg PO BID 12/19/22 01/06/23 Unknown History atorvastatin 40 mg tablet 40 mg PO DAILY 12/19/22 01/06/23 Unknown History bisacodyl 10 mg rectal suppository 10 mg [place] DAILY PRN Constipation 12/19/22 01/06/23 Unknown History (Dulcolax (bisacodyl)) gabapentin 300 mg capsule 300 mg PO TID 12/19/22 01/06/23 Unknown History levothyroxine 150 mcg tablet 150 mcg PO DAILY 12/19/22 01/06/23 Unknown History oxycodone 5 mg tablet 5 mg PO Q6H PRN Pain 12/19/22 01/06/23 Unknown History pantoprazole 40 mg tablet,delayed 40 mg PO DAILY 12/19/22 01/06/23 Unknown History release quetiapine 25 mg tablet (Seroquel) 25 mg PO BEDTIME #3 tabs 12/28/22 01/06/23 Unknown Rx folic acid 1 mg tablet 1 mg PO DAILY #60 tabs 01/02/23 01/06/23 Unknown Rx magnesium 200 mg tablet 200 mg PO BID #20 tabs 01/02/23 01/06/23 Unknown Rx thiamine HCl (vitamin B1) 100 mg 100 mg PO DAILY #60 tabs 01/02/23 01/06/23 Unknown Rx tablet potassium chloride 20 mEq 20 meq PO DAILY #20 tabs 01/03/23 01/06/23 Unknown Rx tablet,extended release Allergies Allergy/AdvReac Type Severity Reaction Status Date / Time morphine Allergy ADR-Vomitin Verified 12/29/22 14:42 g Current Medications Generic Name Dose Route Start Last Admin Trade Name Freq PRN Reason Stop Dose Admin Atorvastatin Calcium 40 mg 01/06/23 09:00 01/08/23 08:43 Atorvastatin 40 Mg Tablet PO 40 mg DAILY MACK Administration Folic Acid 1 mg 01/06/23 09:00 01/08/23 08:43 Folic Acid 1 Mg Tablet PO 1 mg DAILY MACK Administration Gabapentin 300 mg 01/06/23 09:00 01/08/23 20:53 Gabapentin 300 Mg Capsule PO 300 mg TID MACK Administration Hydrocortisone Sodium Succinate 100 mg 01/08/23 18:35 01/09/23 05:41 Hydrocortisone 100 Mg/2 Ml Sdv IVP 100 mg Q12H MACK Administration Sodium Chloride 1,000 mls @ 100 mls/hr 01/08/23 16:00 01/09/23 02:01 Sodium Chloride 0.9% IV 100 mls/hr .Q10H MACK Administration Levothyroxine Sodium 150 mcg 01/06/23 09:00 01/08/23 08:44 Levothyroxine 150 Mcg Tablet PO 150 mcg DAILY MACK Administration Magnesium Oxide 200 mg 01/06/23 09:00 01/08/23 17:34 Magnesium Oxide 400 Mg Tablet PO 200 mg BID MACK Administration Nystatin 1 applic 01/08/23 18:00 01/08/23 18:26 Nystatin Powder 15 Gm Btl TOPICAL 1 applic BID MACK Administration Oxycodone HCl 5 mg 01/06/23 00:03 01/08/23 17:38 Oxycodone 5 Mg Ir Tab/Cap PO 5 mg Q6H PRN Administration Pain Pantoprazole Sodium 40 mg 01/06/23 09:00 01/08/23 08:[address] 40 Mg Tablet PO 40 mg DAILY MACK Administration Sertraline HCl 100 mg 01/06/23 09:00 01/08/23 17:34 Sertraline 100 Mg Tablet PO 100 mg BID MACK Administration Thiamine Mononitrate 100 mg 01/06/23 09:00 01/08/23 08:43 Thiamine 100 Mg Tablet PO 100 mg DAILY MACK Administration Vancomycin HCl 125 mg 01/07/23 09:00 01/08/23 20:53 Vancomycin 1,000 Mg Oral Thania (Btl) PO 125 mg QID MACK Administration PFSH Acute PFSH: Medical History (Updated 01/09/23 @ 07:03 by Ryan Noble PA-C) Acute hypokalemia Acute UTI Altered mental status Atrial fibrillation Benzodiazepine dependence Chronic anticoagulation Contusion of multiple sites Elevated CK Fall Hyperlipidemia Hypomagnesemia Hypothyroidism s/p thyroidectomy for thyroid CA Low TSH level Recurrent falls Thyroid cancer s/p thyroidectomy Urinary tract infection Wernicke-Korsakoff psychosis Vitals/I&O/Wt Last Vital Signs Temp 98.6 F 01/09/23 05:00 Pulse 82 01/09/23 05:00 Resp 18 01/09/23 05:00 BP 86/58 01/09/23 05:00 Pulse Ox 96 01/09/23 05:00 O2 Del Method Room Air 01/07/23 16:00 01/08/23 01/08/23 01/09/23 14:59 22:59 06:59 Intake Total 1584 / 1584 240 / 1824 1096.667 / 2920.667 Output Total 275 / 275 Balance 1309 / 1309 240 / 1549 1096.667 / 7429.667 Physical Exam Narrative: Patient is alert orient x3 has a good general appearance normal mood and affect. Demonstrates dorsiflexion and plantarflexion without difficulty. Exhibits normal coordination and normal stability. Moderate palpatory and percussion pain throughout the paraspinous musculature of the lumbar spine. Well-healed incisions in the mid back from previous kyphoplasty's. Normal sensation to light touch through all dermatomal layers. Normal sensation light touch down both lower extremities with 4/5 motor strength throughout all motor groups. No palpable pain over the SI joints bilaterally. Negative Garett and Fabere sign. Negative straight leg raise bilaterally. Skin is clear warm with normal sensation to light touch, calves are supple with no medial thigh tenderness, negative Homans' sign. No palpable lymphadenopathy bilaterally. Reflexes are 2+ and symmetric about the knees and Achilles. No hyperreflexia or clonus. Downgoing Babinski's bilaterally. Dorsalis pedis and posterior tibial pulses are 2+. No palpable edema bilaterally. HENMT: COMMON NORMALS: normocephalic and atraumatic HEAD & SCALP: normocephalic and atraumatic OTHER: Exophthalmos Resp: COMMON NORMALS: normal respiratory effort Cardio: COMMON NORMALS: regular rate and regular rhythm RATE: regular rate RHYTHM: regular rhythm GI: COMMON NORMALS: Soft to palpation and non-tender PALPATION: Yes Soft to palpation : COMMON NORMALS: Yes no CVA tenderness BLADDER/KIDNEY EXAM: Yes no CVA tenderness Back/Pelvis: COMMON NORMALS: no CVA tenderness Psych: COMMON NORMALS: mental status grossly normal Urinary Catheter Management: Soriano: Cath Placed During This Visit: yes, but has since been removed by the nurse Reason for Continuing Indwelling Catheter: Decision to DC Catheter Urinary Catheter Date of Insertion: 01/06/23 Urinary Catheter Time of Insertion: 01:30 Date Urinary Catheter Removed: 01/08/23 Time Urinary Catheter Discontinued: 10:56 Data 01/08/23 03:37 01/09/23 06:12 MRI: Radiologist's impression: IMPRESSION: 1. Severe acute compression deformity at L1 with 3 mm retropulsion. There is disc and osteophyte contacting but not displacing the LEFT lateral cord. 2. Very minimal increased T2 signal in the anterior T12 vertebral body. Minimal trabecular injury may be present. This is superimposed on a chronic T12 compression fracture. 3. Consecutive vertebral plasties at T6, T7 and T8. 4. Study is significantly compromised by breathing motion artifact. 6. Dextroscoliosis. A&P Assessment and plan (1) Traumatic compression fracture of L1 lumbar vertebra: Reviewed the MRI scan at length with her with independent interpretation showing acute fracture at L1. She has had previous kyphoplasty procedures at T6-T7-T8 at [facility] a number of years ago. She has not been treated for osteoporosis. Gave her the option of a TLSO brace versus kyphoplasty procedure and she would like to move forward with an L1 kyphoplasty. Discussed this procedure at length with her and explained the risks and benefits of the procedure which include but not limited to bleeding infection nerve damage continued back pain risk of further fracture, risk of problems with general anesthetic she understands these risks wished to proceed. We will keep her n.p.o. after midnight and proceed with the procedure on 01/10/2023. More than 50% of the time spent with the patient today involved coordination of care, counseling and discussion of conservative versus surgical treatment options. Total amount of time spent with the patient was 41 minutes. Coding Level of Care Code Acute Code for [facility] Fwd Diagnoses Traumatic compression fracture of L1 lumbar vertebra S32.010A Time Spent (min) 41
[2023-01-09] MEDS: potassium chloride ER 20 mEq Tablet 40 MEQ PO (09:40)
[2023-01-09] MEDS: atorvastatin 40 mg Tablet PO (09:40)
[2023-01-09] MEDS: magnesium oxide 400 mg tablet 200 MG PO ×2 (09:40→17:49)
[2023-01-09] MEDS: thiamine 100 mg Tablet PO (09:40)
[2023-01-09] MEDS: levothyroxine 150 mcg Tablet PO (09:40)
[2023-01-09] MEDS: gabapentin 300 mg Capsule PO ×3 (09:41→19:59)
[2023-01-09] MEDS: sertraline 100 mg Tablet PO ×2 (09:41→17:50)
[2023-01-09] MEDS: pantoprazole DR 40 mg Tablet PO (09:41)
[2023-01-09] MEDS: folic acid 1 mg Tablet PO (09:41)
[2023-01-09] MEDS: nystatin powder 15 gm Btl 1 APPLIC TOPICAL ×2 (09:41→18:49)
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
[2023-01-09] MEDS: acetaminophen 325 mg Tablet 650 MG PO (14:58)
[2023-01-10] VITALS (21 sets, daily range): BP systolic 90–132; BP diastolic 50–87; PULSE 81–98; RESP 14–20; TEMP 36.2–37.3; O2SAT 91–99
[2023-01-10] MEDS: sodium chloride 0.9% 1,000 ML 100 ML IV ×3 (01:32→20:20)
[2023-01-10 04:57] LABS: Basophils % 0.2 %; Eosinophils # 0.1 10^3/uL (0.0-0.8); Eosinophils % 1.3 %; Hematocrit 24.3 % (36-47); Lymphocytes # 1.1 10^3/uL (0.8-4.8); Lymphocytes % 17.4 %; Mean Corpuscular HGB Conc 31.3 g/dL (30-55); Mean Corpuscular Hemoglobin 33.2 pg (27-33); Mean Corpuscular Volume 106.1 fl (85-98); Mean Platelet Volume 9.3 fL (7.4-10.4); Monocytes # 0.4 10^3/uL (0.2-0.9); Neutrophils # 4.57 10^3/uL (1.8-7.7); Neutrophils % 73.1 %; Nucleated Red Blood Cells % 0 %; Platelet Count 160 10^3/cmm (157-399); Red Blood Count 2.29 10^6/uL (3.85-5.65); Red Cell Distribution Width 19.6 % (12.1-15.1); White Blood Count 6.25 10^3/uL (3.29-11.43)
[2023-01-10 05:24] LABS: Anion Gap 9.8 (5-19); Blood Urea Nitrogen 5 mg/dL (8-23); Calcium 7.4 mg/dL (8.5-10.5); Carbon Dioxide 21 mmol/L (22-29); Chloride 113 mmol/L (98-107); Glomerular Filtration Rate 158.3 mL/min (90-130); Glucose 77 mg/dL (65-115); Osmolality Calculated 288 mOsm/kg (285-295); Sodium 141 mmol/L (136-145)
[2023-01-10 05:28] LABS: Potassium 2.8 mmol/L (3.5-5.1)
[2023-01-10] MEDS: potassium chloride ER 20 mEq Tablet 40 MEQ PO (06:06)
--- NOTE | 2023-01-10 07:00 | SC_ITS ---
WS: [id number] EXAMINATION: C-arm FL for Kyphoplasty REASON FOR EXAM: L1 kyphoplasty COMPARISON: None available. ORDER DATE: 01/10/2023 7:00 AM FINDINGS: Fluoroscopy was provided for kyphoplasty totaling 49.8 seconds IMPRESSION: Satisfactory appearance of kyphoplasty cement distribution within the L1 vertebral body. At least 25% compression deformity noted in T12.
--- NOTE | 2023-01-10 10:36 | PM.PN ---
Subjective Subjective: Probably blood transfusion after surgery Low potassium replenished Patient going for kyphoplasty Awake and alert nonfocal Diarrhea with low potassium Vitals/I&O/Wt Last Vital Signs Temp 97.5 F L 01/10/23 07:31 Pulse 83 01/10/23 07:31 Resp 17 01/10/23 07:31 BP 106/71 01/10/23 07:31 Pulse Ox 92 01/10/23 07:31 O2 Del Method Room Air 01/10/23 07:31 01/09/23 01/10/23 01/10/23 22:59 06:59 14:59 Intake Total 1000 / 2390.000 240 / 240 Balance 1000 / 2390.000 240 / 240 Physical Exam Narrative: Pleasant and cooperative Energetic GCS 15 Well-hydrated Abdomen soft No pain at rest Pleasant and cooperative S1, S2 Currently on room air Urinary Catheter Management: Soriano: Cath Placed During This Visit: yes, but has since been removed by the nurse Reason for Continuing Indwelling Catheter: Decision to DC Catheter Urinary Catheter Date of Insertion: 01/06/23 Urinary Catheter Time of Insertion: 01:30 Date Urinary Catheter Removed: 01/08/23 Time Urinary Catheter Discontinued: 10:56 Data 01/10/23 04:48 01/10/23 04:48 A&P Assessment and plan (1) Compression fracture of L1 lumbar vertebra: (2) Traumatic compression fracture of L1 lumbar vertebra: (3) History of kyphoplasty: (4) Refeeding syndrome: (5) Heat exhaustion: (6) Muscle wasting: (7) Physical deconditioning: (8) Protein calorie malnutrition: (9) Dementia: (10) Dementia associated with alcoholism without behavioral disturbance: (11) Wernicke-Korsakoff psychosis: Plan Patient is going for kyphoplasty today We will give her 1 unit PRBC after her surgery Potassium to be replenished for persistent diarrhea related to C. difficile P.o. vancomycin for C. difficile We will do PT evaluation after her surgery and then decide on her disposition Full code She may resume her diet after surgery Continue opioids UTI treatment finished Wernicke's Korsakoff:-Compensated Attestations Medical Necessity Statement*: Surgery today Diagnoses Compression fracture of L1 lumbar vertebra S32.010A Traumatic compression fracture of L1 lumbar vertebra S32.010A History of kyphoplasty Z98.890 Refeeding syndrome E87.8 Heat exhaustion T67.5XXA Muscle wasting M62.50 Physical deconditioning R53.81 Protein calorie malnutrition E46 Dementia F03.90 Dementia associated with alcoholism without behavioral disturbance F10.27 Wernicke-Korsakoff psychosis F04
--- NOTE | 2023-01-10 10:45 | W.PM.OPSUD ---
Surgery/Procedure H&P Update DATE OF PROCEDURE: January 10, 2023 DATE H&P PERFORMED: 01/08/23 H&P UPDATE INFORMATION: I have reviewed H&P completed within last 30 days, I have examined patient prior to procedure and No changes to prior documentation PREOP DIAGNOSIS: Traumatic compression fracture L1 PLANNED PROCEDURE: Operation Date: 01/10/23 11:10 Proposed Procedures p L1 Kyphoplasty(Not Applicable) - Calixto Hernadez DO
--- NOTE | 2023-01-10 10:46 | ANES.PREANE2 ---
Pre-Anesthetic Assessment Height/Weight: Height 1.68 m Weight 57.606 kg Temp Pulse Resp BP Pulse Ox O2 Del Method 97.5 F L 89 18 113/87 97 Room Air 01/10/23 10:36 01/10/23 10:36 01/10/23 10:36 01/10/23 10:36 01/10/23 10:36 01/10/23 10:36 Preop Diagnosis: Traumatic compression fracture L1 Operation Date: 01/10/23 11:10 Proposed Procedures p L1 Kyphoplasty(Not Applicable) - Calixto Hernadez DO Familial anesthetic complications: none Was Beta Nahun taken within 24 hours: N/A Was Clonidine taken within 24 hours: N/A Last intake: Intake Last Liquid Date 01/10/23 Last Liquid Time 05:00 Last Solid Date 01/09/23 Last Solid Time 18:00 Social No alcohol and No tobacco history ETOH Exam alert, oriented x 3, clear to auscultation bilaterally and regular rate & rhythm Airway Mallampati: Class I Dentition: full Pulmonary Chronic Obstructive Pulmonary Disease GI Gastroesophageal Reflux Disease Metabolic Hyperlipidemia and Thyroid Disease Anesthetic Plan ASA status: 3 Anesthesia: General Risk of > 500 ml blood loss (7ml/kg in children): No Medications/Allergies Home Medications Medication Instructions Recorded Confirmed Last Taken Type sertraline 100 mg tablet (Zoloft) 100 mg PO BID 12/14/22 01/06/23 Unknown History acetaminophen 325 mg tablet 650 mg PO Q4H PRN Pain 12/19/22 01/06/23 Unknown History (Tylenol) apixaban 5 mg tablet (Eliquis) 5 mg PO BID 12/19/22 01/06/23 Unknown History atorvastatin 40 mg tablet 40 mg PO DAILY 12/19/22 01/06/23 Unknown History bisacodyl 10 mg rectal suppository 10 mg [place] DAILY PRN Constipation 12/19/22 01/06/23 Unknown History (Dulcolax (bisacodyl)) gabapentin 300 mg capsule 300 mg PO TID 12/19/22 01/06/23 Unknown History levothyroxine 150 mcg tablet 150 mcg PO DAILY 12/19/22 01/06/23 Unknown History oxycodone 5 mg tablet 5 mg PO Q6H PRN Pain 12/19/22 01/06/23 Unknown History pantoprazole 40 mg tablet,delayed 40 mg PO DAILY 12/19/22 01/06/23 Unknown History release quetiapine 25 mg tablet (Seroquel) 25 mg PO BEDTIME #3 tabs 12/28/22 01/06/23 Unknown Rx folic acid 1 mg tablet 1 mg PO DAILY #60 tabs 01/02/23 01/06/23 Unknown Rx magnesium 200 mg tablet 200 mg PO BID #20 tabs 01/02/23 01/06/23 Unknown Rx thiamine HCl (vitamin B1) 100 mg 100 mg PO DAILY #60 tabs 01/02/23 01/06/23 Unknown Rx tablet potassium chloride 20 mEq 20 meq PO DAILY #20 tabs 01/03/23 01/06/23 Unknown Rx tablet,extended release Allergies Allergy/AdvReac Type Severity Reaction Status Date / Time morphine Allergy ADR-Vomitin Verified 12/29/22 14:42 g Current Medications Generic Name Dose Route Start Last Admin Trade Name Freq PRN Reason Stop Dose Admin Acetaminophen 650 mg 01/06/23 00:03 01/09/23 14:58 Acetaminophen 325 Mg Tablet PO 650 mg Q6H PRN Administration Mild/Mod Pain Or Temp >/= 101 Atorvastatin Calcium 40 mg 01/06/23 09:00 01/10/23 10:03 Atorvastatin 40 Mg Tablet PO Not Given DAILY MACK Folic Acid 1 mg 01/06/23 09:00 01/10/23 10:03 Folic Acid 1 Mg Tablet PO Not Given DAILY MACK Gabapentin 300 mg 01/06/23 09:00 01/10/23 10:04 Gabapentin 300 Mg Capsule PO Not Given TID MACK Sodium Chloride 1,000 mls @ 100 mls/hr 01/08/23 16:00 01/10/23 10:20 Sodium Chloride 0.9% IV Not Given .Q10H MACK Levothyroxine Sodium 150 mcg 01/06/23 09:00 01/10/23 10:04 Levothyroxine 150 Mcg Tablet PO Not Given DAILY MACK Magnesium Oxide 200 mg 01/06/23 09:00 01/10/23 10:04 Magnesium Oxide 400 Mg Tablet PO Not Given BID MACK Nystatin 1 applic 01/08/23 18:00 01/10/23 10:04 Nystatin Powder 15 Gm Btl TOPICAL Not Given BID MACK Oxycodone HCl 5 mg 01/06/23 00:03 01/08/23 17:38 Oxycodone 5 Mg Ir Tab/Cap PO 5 mg Q6H PRN Administration Pain Pantoprazole Sodium 40 mg 01/06/23 09:00 01/10/23 10:[address] 40 Mg Tablet PO Not Given DAILY MACK Potassium Chloride 40 meq 01/09/23 09:00 01/10/23 06:06 Potassium Chloride Er 20 Meq Tablet PO 40 meq DAILY MACK Administration Sertraline HCl 100 mg 01/06/23 09:00 01/10/23 10:04 Sertraline 100 Mg Tablet PO Not Given BID MACK Thiamine Mononitrate 100 mg 01/06/23 09:00 01/10/23 10:05 Thiamine 100 Mg Tablet PO Not Given DAILY MACK Vancomycin HCl 125 mg 01/07/23 09:00 01/10/23 10:05 Vancomycin 1,000 Mg Oral Thania (Btl) PO Not Given QID MACK PFSH Anesthesia Medical History (Updated 01/09/23 @ 13:21 by Tiny Padilla MD) Acute hypokalemia Acute UTI Altered mental status Atrial fibrillation Benzodiazepine dependence Chronic anticoagulation Contusion of multiple sites Elevated CK Fall Hyperlipidemia Hypomagnesemia Hypothyroidism s/p thyroidectomy for thyroid CA Low TSH level Recurrent falls Thyroid cancer s/p thyroidectomy Urinary tract infection Wernicke-Korsakoff psychosis Data Anesthesia 01/10/23 04:48 01/10/23 04:48 Short CBC 01/10/23 Range/Units 04:48 WBC 6.25 (3.29-11.43) 10^3/uL Hgb 7.60 L (11.27-16.99) g/dL Hct 24.3 L (36-47) % MCV 106.1 H (85-98) fl Plt Count 160 (157-399) 10^3/cmm Neut % (Auto) 73.1 % Neut # (Auto) 4.57 (1.8-7.7) 10^3/uL BMP 01/09/23 01/10/23 06:12 04:48 Sodium 138 141 Potassium 3.3 L 2.8 L* Chloride 110 H 113 H Carbon Dioxide 20 L 21 L BUN 6 L 5 L Creatinine 0.4 L 0.4 L Glucose 117 H 77 Calcium 7.4 L 7.4 L Cardiac Studies: Echocardiogram 12/27/22
[2023-01-10] MEDS: ceFAZolin 2,000 MG in sodium chloride 0.9% (plus) 50 ML 100 MG IV (11:12)
--- NOTE | 2023-01-10 11:42 | SUR.OPER ---
pt arrived to OR with a soiled bed of urine and stool. skin inspected by PA and nursing program director.
[2023-01-10] MEDS: iohexol 300 mg/mL 50 mL Btl (OR ONLY) XX (11:46)
[2023-01-10] MEDS: lidocaine-epi 2% 20 mL INJ INJECTION (11:47)
[2023-01-10] MEDS: silver sulfadiazine cream 1% 50 gm 1 APPLIC TOPICAL (11:48)
--- NOTE | 2023-01-10 11:48 | PC.OT ---
OT TREATMENT HELD THIS DATE DUE TO SCHEDULED SURGERY TODAY.
--- NOTE | 2023-01-10 12:15 | ANE.PACU2 ---
Inpatient post-anesthesia follow up: Airway intact: Yes Vital signs: Temperature 98.2 F Pulse Rate 92 Respiratory Rate 16 Blood Pressure 118/69 Pulse Oximetry 96 Oxygen Delivery Me thod Room Air Oxygen Flow Rate 6 Fraction of Inspir ed Oxygen Hydration adequate: Yes Nausea and vomiting: No Pain level: 1 Mental status: Baseline
--- NOTE | 2023-01-10 12:26 | PM.OP ---
Operative Report Date of procedure: January 10, 2023 Pre-op diagnosis: L1 wedge osteoporotic compression fracture Post-op diagnosis: same Procedure done: L1 kyphoplasty Surgeon: Calixto Hernadez DO Estimated blood loss (mL): 5 Procedure: L1 kyphoplasty Patient brought the operative suite after undergoing anesthesia placed in the prone position. All his pressure well-padded. Patient prepped draped normal sterile fashion. Skin incision was made over the right lateral pedicle. This is the L1 level. This confirmed using C-arm guidance. The awl was inserted on the right pedicle. 1 through the pedicle into the center position of the vertebral body at L1. Once this was done then the drill was placed followed by the balloon and balloon was inflated deflated. And then the cement was inserted had good fill across the vertebral body. AP lateral fluoroscopy confirmed that there was no leakage of the cement. Wound was irrigated sterile dressing was applied after a nylon stitch was placed. And patient was transferred to the PACU in stable condition.
[2023-01-10] MEDS: oxyCODONE 5 mg IR Tab/Cap PO (18:24)
[2023-01-10] MEDS: magnesium oxide 400 mg tablet 200 MG PO (18:24)
[2023-01-10] MEDS: sertraline 100 mg Tablet PO (18:25)
[2023-01-10] MEDS: nystatin powder 15 gm Btl 1 APPLIC TOPICAL (18:27)
[2023-01-10] MEDS: lidocaine 1% 5 ML in potassium chloride premix 100 ML 26.25 ML IV (20:04)
[2023-01-10 22:43] LABS: Hematocrit 27.4 % (36-47)
[2023-01-11 03:48] VITALS: BP 106/67; PULSE 85; RESP 18; TEMP 36.6; O2SAT 96
[2023-01-11 04:04] VITALS: RESP 16
[2023-01-11] MEDS: oxyCODONE 5 mg IR Tab/Cap PO (04:04)
[2023-01-11 06:11] LABS: Basophils % 0.1 %; Eosinophils % 0.3 %; Hematocrit 30.4 % (36-47); Lymphocytes # 0.9 10^3/uL (0.8-4.8); Lymphocytes % 11.9 %; Mean Corpuscular HGB Conc 32.2 g/dL (30-55); Mean Corpuscular Hemoglobin 32.1 pg (27-33); Mean Corpuscular Volume 99.7 fl (85-98); Mean Platelet Volume 9.3 fL (7.4-10.4); Monocytes # 0.6 10^3/uL (0.2-0.9); Monocytes % 8.5 %; Neutrophils # 5.76 10^3/uL (1.8-7.7); Nucleated Red Blood Cells % 0 %; Platelet Count 191 10^3/cmm (157-399); Red Blood Count 3.05 10^6/uL (3.85-5.65); Red Cell Distribution Width 21.1 % (12.1-15.1); White Blood Count 7.39 10^3/uL (3.29-11.43)
[2023-01-11 06:37] LABS: Blood Urea Nitrogen 4 mg/dL (8-23); Calcium 7.7 mg/dL (8.5-10.5); Carbon Dioxide 22 mmol/L (22-29); Chloride 112 mmol/L (98-107); Glomerular Filtration Rate 158.3 mL/min (90-130); Glucose 78 mg/dL (65-115); Osmolality Calculated 290 mOsm/kg (285-295); Sodium 142 mmol/L (136-145)
[2023-01-11 06:54] LABS: Anion Gap 11.4 (5-19); Potassium 3.4 mmol/L (3.5-5.1)
--- NOTE | 2023-01-11 07:39 | P.PN_ITS ---
Subjective Subjective: POD 1 Patient resting comfortably. States back pain has improved. Vitals/I&O/Wt Last Vital Signs Temp 97.8 F 01/11/23 03:48 Pulse 85 01/11/23 03:48 Resp 16 01/11/23 04:04 BP 106/67 01/11/23 03:48 Pulse Ox 96 01/11/23 03:48 O2 Del Method Room Air 01/11/23 03:48 O2 Flow Rate 6 01/10/23 12:11 01/10/23 01/11/23 01/11/23 22:59 06:59 14:59 Intake Total 1293.333 / 2520.000 105 / 2625.000 Balance 1293.333 / 2518.000 105 / 2623.000 Physical Exam Narrative: Patient presents alert and oriented x3 with a good general appearance normal mood and affect. Normal coordination normal stability. Mild tenderness around the incisional site with the incision appear to be healing nicely. No signs of erythema or drainage. No signs of infection. Patient denies any fevers or chills. 5/5 motor strength both lower extremities with negative straight leg raise bilaterally. Calves are supple no medial thigh tenderness. Pulses are 2+ at the dorsalis pedis and posterior tibial region. Good capillary refill throughout normal sensation light touch both lower extremities. Urinary Catheter Management: Soriano: Cath Placed During This Visit: yes, but has since been removed by the nurse Reason for Continuing Indwelling Catheter: Decision to DC Catheter Urinary Catheter Date of Insertion: 01/06/23 Urinary Catheter Time of Insertion: 01:30 Date Urinary Catheter Removed: 01/08/23 Time Urinary Catheter Discontinued: 10:56 Data 01/11/23 05:54 01/11/23 05:54 Micro: Microbiology 01/05/23 23:01 Blood Culture - Final Blood NO GROWTH AFTER 5 DAYS 01/05/23 22:53 Blood Culture - Final Blood NO GROWTH AFTER 5 DAYS A&P Assessment and plan (1) Compression fracture of L1 lumbar vertebra: Physical therapy to work with mobilization. Wound care to evaluate wounds on the buttocks region. member services representative for placement. Attestations Medical Necessity Statement*: Defer to medical team Coding Level of Care Code Acute Code for [facility] Fwd Diagnoses Compression fracture of L1 lumbar vertebra S32.010A
[2023-01-11 07:53] VITALS: BP 92/54; PULSE 89; RESP 16; TEMP 36.6; O2SAT 94
--- NOTE | 2023-01-11 09:43 | SUR.EXTENDED ---
physical therapy in room
[2023-01-11] MEDS: magnesium oxide 400 mg tablet 200 MG PO (09:51)
[2023-01-11] MEDS: sertraline 100 mg Tablet PO (09:51)
[2023-01-11] MEDS: potassium chloride ER 20 mEq Tablet 40 MEQ PO (09:51)
--- NOTE | 2023-01-11 09:51 | PM.DCS ---
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 difficile diarrhea, p.o. vancomycin was added, she finished her UTI antibiotic regimen, she remained afebrile no leukocytosis. Her hypokalemia was replenished aggressively. Dr. Hernadez was consulted for new L1 compression fracture, patient went for L1 kyphoplasty on 01/10, she does have nutritional deficiency anemia, FOBT was negative she was given 1 unit PRBC, at the time of discharge her hemoglobin is 9.8, on first admission her hemoglobin was hanging around 11. Patient has improved significantly with high-dose thiamine dosage and folic acid and better hydration. She is much more awake and alert and pleasant during evaluations wanting to go home with her stating that now her back pain is less as compared to before. Of note, as per the community case manager she does not have any days left for her rehab, her timeline will restart after January 22 then she may qualify for 22 days of rehab again case she gets readmitted Physical Exam Narrative: Awake and alert Short attention span Pleasant and cooperative Signs of dehydration improved Eats regular diet Follows command GCS 15 Confabulates No nystagmus Urinary Catheter Management: Soriano: Cath Placed During This Visit: yes, but has since been removed by the nurse Reason for Continuing Indwelling Catheter: Decision to DC Catheter Urinary Catheter Date of Insertion: 01/06/23 Urinary Catheter Time of Insertion: 01:30 Date Urinary Catheter Removed: 01/08/23 Time Urinary Catheter Discontinued: 10:56 Discharge Data Studies Completed and Pending Completed Studies During Hospitalization Category Date Time Status CT head wo con* [id number] Stat Cat Scan 01/05/23 19:32 Completed XR chest 1V portable [id number] Stat Exams 01/05/23 19:28 Completed MR thoracic spin wo con* [id number] Routine MRI 01/08/23 10:21 Completed Radiology Impressions Chest X-Ray 01/05/23 19:28 IMPRESSION: No acute findings. Head CT 01/05/23 19:32 IMPRESSION: No acute intracranial abnormality. Laboratory Results WBC 7.39 10^3/uL (3.29-11.43) 01/11/23 05:54 RBC 3.05 10^6/uL (3.85-5.65) L 01/11/23 05:54 Hgb 9.80 g/dL (11.27-16.99) L 01/11/23 05:54 Hct 30.4 % (36-47) L 01/11/23 05:54 MCV 99.7 fl (85-98) H 01/11/23 05:54 MCH 32.1 pg (27-33) 01/11/23 05:54 MCHC 32.2 g/dL (30-55) 01/11/23 05:54 RDW 21.1 % (12.1-15.1) H 01/11/23 05:54 Plt Count 191 10^3/cmm (157-399) 01/11/23 05:54 MPV 9.3 fL (7.4-10.4) 01/11/23 05:54 Neut % (Auto) 78.0 % 01/11/23 05:54 Lymph % (Auto) 11.9 % 01/11/23 05:54 [place] % (Auto) 8.5 % 01/11/23 05:54 Eos % (Auto) 0.3 % 01/11/23 05:54 Baso % (Auto) 0.1 % 01/11/23 05:54 Neut # (Auto) 5.76 10^3/uL (1.8-7.7) 01/11/23 05:54 Lymph # (Auto) 0.9 10^3/uL (0.8-4.8) 01/11/23 05:54 [place] # (Auto) 0.6 10^3/uL (0.2-0.9) 01/11/23 05:54 Eos # (Auto) 0.0 10^3/uL (0.0-0.8) 01/11/23 05:54 Baso # (Auto) 0.0 10^3/uL (0.0-0.1) 01/11/23 05:54 Nucleated RBC % (auto) 0 % 01/11/23 05:54 Nucleated RBCs # 0.0 /100WBC 01/11/23 05:54 PT 23.00 SECONDS (12.1-14.9) H 01/05/23 19:43 INR 1.95 (0.8-1.2) H 01/05/23 19:43 Sodium 142 mmol/L (136-145) 01/11/23 05:54 Potassium 3.4 mmol/L (3.5-5.1) L 01/11/23 05:54 Chloride 112 mmol/L (98-107) H 01/11/23 05:54 Carbon Dioxide 22 mmol/L (22-29) 01/11/23 05:54 Anion Gap 11.4 (5-19) 01/11/23 05:54 BUN 4 mg/dL (8-23) L 01/11/23 05:54 Creatinine 0.4 mg/dL (0.5-0.9) L 01/11/23 05:54 GFR Calculation 158.3 mL/min (90-130) H 01/11/23 05:54 Glucose 78 mg/dL (65-115) 01/11/23 05:54 POC Glucose 173 mg/dL (70-110) H 01/08/23 16:18 Calculated Osmolality 290 mOsm/kg (285-295) 01/11/23 05:54 Lactic Acid 1.3 mmol/L (0.5-2.2) 01/06/23 00:48 Calcium 7.7 mg/dL (8.5-10.5) L 01/11/23 05:54 Phosphorus 3.4 mg/dL (2.5-4.5) 01/06/23 04:12 Magnesium 1.7 mg/dL (1.7-2.3) 01/07/23 04:09 Total Bilirubin 0.4 mg/dL (0.15-1.2) 01/06/23 04:12 AST 20 U/L (0-32) 01/06/23 04:12 ALT 16 U/L (0-33) 01/06/23 04:12 Alkaline Phosphatase 105 U/L (35-105) 01/06/23 04:12 Ammonia 10 umol/L (11-51) L 01/05/23 19:43 Creatine Kinase 112 U/L (26-192) 01/05/23 19:43 C-Reactive Protein 115.4 mg/L (0.0-4.9) H 01/06/23 00:48 Total Protein 4.8 g/dL (6.6-8.7) L D 01/06/23 04:12 Albumin 2.6 g/dL (3.5-5.2) L 01/06/23 04:12 Globulin 2.2 g/dL (1.3-4.6) 01/06/23 04:12 Procalcitonin 1.18 ng/mL (0-0.5) H 01/06/23 00:48 TSH 10.76 uIU/mL (0.27-4.20) H 01/05/23 19:43 Urine Color Yellow (Yellow) 01/06/23 01:30 Urine Appearance Cloudy (CLEAR) A 01/06/23 01:30 Urine pH 5 (5-7) 01/06/23 01:30 Ur Specific [place] 1.025 (1.005-1.030) 01/06/23 01:30 Urine Protein 1+ (Negative) H 01/06/23 01:30 Urine Glucose (UA) 2+ (Normal) H 01/06/23 01:30 Urine Ketones 1+ (Negative) H 01/06/23 01:30 Urine Blood 2+ (Negative) H 01/06/23 01:30 Urine Nitrate Negative (Negative) 01/06/23 01:30 Urine Bilirubin Neg (Negative) 01/06/23 01:30 Urine Urobilinogen Neg mg/dL (Negative) 01/06/23 01:30 Ur Leukocyte Esterase 1+ (Negative) H 01/06/23 01:30 Urine RBC Rare /hpf (0-2) 01/05/23 23:15 Urine WBC 0-4 /hpf (0-5) H 01/05/23 23:15 Ur Squamous Epith Cells 0-4 /hpf (0-5) H 01/05/23 23:15 Amorphous Sediment Not Reportable 01/05/23 23:15 Urine Bacteria None /hpf (NONE) 01/05/23 23:15 Hyaline Casts 0-4 /lpf H 01/05/23 23:15 Urine Opiates Screen Positive ng/mL (Negative) H 01/06/23 01:30 Ur Barbiturates Screen Negative ng/mL (Negative) 01/06/23 01:30 Ur Phencyclidine Scrn Negative ng/mL (Negative) 01/06/23 01:30 Ur Amphetamines Screen Negative ng/mL (Negative) 01/06/23 01:30 U Benzodiazepines Scrn Negative ng/mL (Negative) 01/06/23 01:30 Urine Cocaine Screen Negative ng/mL (Negative) 01/06/23 01:30 U Marijuana (THC) Screen Negative ng/mL (Negative) 01/06/23 01:30 Ethyl Alcohol < 10 mg/dL (0-10) 01/06/23 00:48 Hepatitis A IgM Ab Non-reactive (Nonreactive) 01/06/23 00:48 Hep Bs Antigen Non-reactive (Nonreactive) 01/06/23 00:48 Hep B Core IgM Ab Non-reactive (Nonreactive) 01/06/23 00:48 Hepatitis C Antibody Non-reactive (Nonreactive) 01/06/23 00:48 HIV 1&2 Ab & HIV 1 Ag Non-reactive (Non-Reactiv) 01/06/23 00:48 HIV 1&2 Antibody Non-reactive (Non-Reactiv) 01/06/23 00:48 Blood Type O Positive 01/10/23 10:56 Rho(D) Type Positive 01/10/23 10:56 Antibody Screen Negative 01/10/23 10:56 Crossmatch See Detail 01/10/23 10:56 Vitals Last Vital Signs Temp 97.9 F 01/11/23 07:53 Pulse 89 01/11/23 07:53 Resp 16 01/11/23 07:53 BP 92/54 01/11/23 07:53 Pulse Ox 94 01/11/23 07:53 O2 Del Method Room Air 01/11/23 03:48 O2 Flow Rate 6 01/10/23 12:11 Discharge Plan Discharge Patient Disposition: Home Condition: Stable Prescriptions: New vancomycin [Vancocin] 125 mg capsule 125 mg PO QID 14 Days Qty: 56 0RF Continued sertraline [Zoloft] 100 mg Tablet 100 mg PO BID thiamine HCl (vitamin B1) 100 mg tablet 100 mg PO DAILY Qty: 60 3RF folic acid 1 mg tablet 1 mg PO DAILY Qty: 60 3RF magnesium 200 mg tablet 200 mg PO BID Qty: 20 2RF potassium chloride 20 mEq tablet extended release 20 meq PO DAILY Qty: 20 0RF atorvastatin 40 mg Tablet 40 mg PO DAILY acetaminophen [Tylenol] 325 mg Tablet 650 mg PO Q4H PRN (Reason: Pain) bisacodyl [Dulcolax (bisacodyl)] 10 mg Suppository 10 mg [place] DAILY PRN (Reason: Constipation) pantoprazole 40 mg Tablet,Delayed Release (Dr/Ec) 40 mg PO DAILY levothyroxine 150 mcg Tablet 150 mcg PO DAILY gabapentin 300 mg Capsule 300 mg PO TID oxycodone 5 mg Tablet 5 mg PO Q6H PRN (Reason: Pain) Eliquis 5 mg Tablet 5 mg PO BID quetiapine [Seroquel] 25 mg tablet 25 mg PO BEDTIME Qty: 3 0RF Discharge Orders: Discharge Order (Routine); Ordered 01/11/23 Ordered By: Tiny Padilla Referrals: Anton Martin MD [Primary Care Provider] - 4-7 days Discharge Activity: As per PT/OT instructions Patient Instructions: Hyponatremia (ED), Benzodiazepine Use Disorder (ED), Dementia (ED), Non-diabetic Hypoglycemia (ED), Hypoglycemia in a Person with Diabetes (ED), Concussion (ED), Alcohol Intoxication (ED), Subarachnoid Hemorrhage (GEN), Altered Mental Status (ED), Opioid Safety Activity Restrictions/Additional Instructions: No bending lifting or twisting. Follow-up in the office with Dr. Hernadez in 1 week for suture removal. Discharge Attestations Time Spent in Discharge Care*: greater than 30 min Quality Metrics Clinical Quality Measures [ No reported AMI, CVA or VTE this stay] Coding Level of Care Code Acute Code for [facility] Fwd Diagnoses Compression fracture of L1 lumbar vertebra S32.010A
[2023-01-11] MEDS: nystatin powder 15 gm Btl 1 APPLIC TOPICAL (09:52)
[2023-01-11] MEDS: pantoprazole DR 40 mg Tablet PO (09:52)
--- NOTE | 2023-01-11 10:10 | PC.NURSE ---
Error on JUN. This nurse did give colace to patient due at 1800 on 01/10/23.
== END 2023-01-11 15:03 | disposition home health service (06) | DRG 982 ==
LOC: ER 21:36 → MEDSURG 21:37
PROVIDERS: Orthopaedic Surgery; Admitting Provider Family Medicine; Emergency Provider Emergency Medicine; PCP Family Medicine Adult Medicine; Visit Provider Internal Medicine
PROC: 0QU03JZ Supplement Lumbar Vertebra with Synthetic Substitute, Percutaneous Approach (ICD-10-PCS; principal; 2023-01-10 11:00)
DX: N17.9 Acute kidney failure, unspecified (principal); A04.72 Enterocolitis due to Clostridium difficile, not specified as recurrent; F10.259 Alcohol dependence with alcohol-induced psychotic disorder, unspecified; M48.56XA Collapsed vertebra, not elsewhere classified, lumbar region, initial encounter for fracture; N39.0 Urinary tract infection, site not specified; E46 Unspecified protein-calorie malnutrition; T76.01XA Adult neglect or abandonment, suspected, initial encounter; F13.20 Sedative, hypnotic or anxiolytic dependence, uncomplicated; G31.2 Degeneration of nervous system due to alcohol; Z87.440 Personal history of urinary (tract) infections; E86.0 Dehydration; E87.6 Hypokalemia; D53.9 Nutritional anemia, unspecified; Z79.891 Long term (current) use of opiate analgesic; I48.91 Unspecified atrial fibrillation; Z79.01 Long term (current) use of anticoagulants; E78.5 Hyperlipidemia, unspecified; Z98.890 Other specified postprocedural states; G47.00 Insomnia, unspecified; X30.XXXA Exposure to excessive natural heat, initial encounter; Y92.008 Other place in unspecified non-institutional (private) residence as the place of occurrence of the external cause; Z68.20 Body mass index [BMI] 20.0-20.9, adult; Z91.81 History of falling; G31.83 Neurocognitive disorder with Lewy bodies; F02.80 Dementia in other diseases classified elsewhere, unspecified severity, without behavioral disturbance, psychotic disturbance, mood disturbance, and anxiety; Z85.850 Personal history of malignant neoplasm of thyroid; E89.0 Postprocedural hypothyroidism
CPT/HCPCS: 36415; 36416; 36430; 36569; 36573; 51702; 70450; 71045; 72146; 76000; 80048; 80053; 80074; 80306; 80307; 81001; 81003; 82140; 82550; 82962; 83605; 83735; 84100; 84145; 84295; 84443; 85014; 85018; 85025; 85610; 86140; 86850; 86900; 86920; 87040; 87806; 92523; 92610; 93005; 94664; 96361; 96374; 97116; 97161; 97167; 97530; 97535; 99285; C1751; J0690; J0696; J1100; J1720; J2405; J2704; J2710; J3010; J3370; J3411; J3480; J3490; J7030; J7042; J7799; P9016; Q3014

== ENCOUNTER 2023-01-23 11:00 | Inpatient (IN) | payer MEDICARE, OTHER, SELFPAY ==
[2023-01-23] VITALS (9 sets, daily range): BP systolic 91–142; BP diastolic 51–86; PULSE 78–94; RESP 16–18; TEMP 36.2–37; O2SAT 94–100; BMI 14.5
--- NOTE | 2023-01-23 11:10 | XRR_ITS ---
PROCEDURE INFORMATION: Exam: XR Chest Exam date and time: 01/23/2023 11:45 AM Age: 67 years old Clinical indication: Cough and other: AMS; Prior surgery; Surgery date: 6+ months; Surgery type: Loop recorder; Additional info: Dyspnea/cough.No history of trauma or recent surgery is provided. TECHNIQUE: Imaging protocol: Radiologic exam of the chest. 1image(s) are provided. Views: 1 view. COMPARISON: 1. CR (CHEST, ) 01/05/2023 8:11 PM 2. CR (CHEST, ) 12/26/2022 10:17 PM FINDINGS: Tubes, catheters and devices: There is a cardiac loop recorder device demonstrated. There appear to be some mitral apparatus calcifications. Lungs: There is some mild lung air trapping type appearance overall similar. No lobar consolidation is appreciated. There is some subsegmental atelectasis versus post inflammatory scarring demonstrated. Pleural spaces: There is minimal costophrenic angle blunting. No pneumothorax is appreciated. Heart/Mediastinum: The cardiomediastinal silhouette is upper normal in size.This can be seen with central bronchovascular averaging as well as segundo enlargement.No cardiac decompensation is appreciated. Diaphragm: The hemidiaphragms are symmetric. Bones/joints: Osseous alignment is maintained.No interval displaced fracture or dislocation is appreciated. There is history of chronic vertebral compression at the thoracolumbar junction along with vertebral augmentation similar overall. There are chronic degenerative changes of the shoulders similar overall. Soft tissues: No radiopaque foreign body or subcutaneous emphysema is appreciated. Other findings: Basal aeration appears improved. No other significant interval changes are appreciated. XR/XR chest 1V portable [id number] IMPRESSION: No lobar consolidation is appreciated.No interval acute cardiopulmonary changes are appreciated.
--- NOTE | 2023-01-23 11:10 | CT_ITS ---
WS: [id number] CT HEAD TECHNIQUE: Noncontrast CT of the head obtained from the skullbase to the vertex. CLINICAL INFORMATION: Altered mental status COMPARISON: 01/05/2023 MRI 12/27/2022 DLP: 1037.[address] scans at [facility] use at least one of these dose optimization techniques: automated e xposure control; mA and/or kV adjustment per patient size (includes targeted exams where dose is matc hed to clinical indication); or iterative reconstruction. FINDINGS: No evidence of intracranial hemorrhage or mass effect. Ventricular system and basal cisterns are cotter nt. Mild small vessel changes with moderate parenchymal volume loss. No extra-axial fluid collections . No evidence of mass or mass effect. Intracranial vascular calcification. Paranasal sinuses and mastoid air cells are well aerated. .Normal visualized soft tissues. IMPRESSION: 1. No evidence of intracranial hemorrhage or mass effect. 2. Mild small vessel changes. Moderate parenchymal volume loss. 3. No acute intracranial findings.
--- NOTE | 2023-01-23 11:13 | ECG_ITS ---
[facility] Test Date: 2023-01-23 Pat Name: Chrissy Pantoja Department: Room: Gender: Female Research Geneticist: : [id number] Requested By: Raul Arciniega Order Number: [id number] Aurelio MD: Tawnya Isaca M.D. Measurements Intervals [place] Rate: 96 P: 83 [place]: 147 QRS: 74 QRSD: 85 T: 85 QT: 387 QTc: 491 Interpretive Statements SINUS RHYTHM WITH OCCASIONAL SUPRAVENTRICULAR PREMATURE COMPLEXES MODERATE ST DEPRESSION [0.05+ mV ST DEPRESSION] Compared to ECG 01/05/2023 19:43:49 ST (T wave) deviation now present Sinus tachycardia no longer present T-wave abnormality no longer present Possible ischemia no longer present Electronically Signed On 01-23-2023 12:16:39 CDT by Tawnya Isaac M.D. [id number]
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
[2023-01-23 11:45] LABS: Basophils # 0.1 10^3/uL (0.0-0.1); Basophils % 0.8 %; Eosinophils % 0.3 %; Hematocrit 39.3 % (36-47); Lymphocytes # 1.3 10^3/uL (0.8-4.8); Lymphocytes % 20.9 %; Mean Corpuscular HGB Conc 30.3 g/dL (30-55); Mean Corpuscular Volume 105.6 fl (85-98); Mean Platelet Volume 8.7 fL (7.4-10.4); Monocytes # 0.5 10^3/uL (0.2-0.9); Neutrophils # 4.25 10^3/uL (1.8-7.7); Neutrophils % 69.8 %; Nucleated Red Blood Cells % 0 %; Platelet Count 268 10^3/cmm (157-399); Red Blood Count 3.72 10^6/uL (3.85-5.65); Red Cell Distribution Width 16.9 % (12.1-15.1); White Blood Count 6.09 10^3/uL (3.29-11.43)
[2023-01-23 12:00] LABS: Ketone (Acetest) Serum Negative (Negative)
[2023-01-23] MEDS: sodium chloride 0.9% 1,000 ML 999 ML IV (12:00)
[2023-01-23 12:01] LABS: Lactic Sepsis W/Reflex 1.6 mmol/L (0.5-2.2)
[2023-01-23 12:02] LABS: Troponin(5th) Baseline 37 ng/L (0-10)
[2023-01-23 12:06] LABS: Alanine Aminotransferase 18 U/L (0-33); Albumin Level 2.8 g/dL (3.5-5.2); Alkaline Phosphatase 206 U/L (35-105); Anion Gap 15.3 (5-19); Aspartate Amino Transferase 26 U/L (0-32); Blood Urea Nitrogen 12 mg/dL (8-23); Calcium 8.7 mg/dL (8.5-10.5); Carbon Dioxide 23 mmol/L (22-29); Chloride 103 mmol/L (98-107); Globulin 4.3 g/dL (1.3-4.6); Glomerular Filtration Rate 122.3 mL/min (90-130); Glucose 107 mg/dL (65-115); Lipase 13 U/L (13-60); Osmolality Calculated 284 mOsm/kg (285-295); Potassium 4.3 mmol/L (3.5-5.1); Sodium 137 mmol/L (136-145); Total Bilirubin 0.5 mg/dL (0.15-1.2); Total Protein 7.1 g/dL (6.6-8.7)
[2023-01-23] MEDS: ondansetron 2 mg/ML SDV 2 mL 4 MG IVP (12:39)
--- NOTE | 2023-01-23 13:11 | ECG_ITS ---
[facility] Test Date: 2023-01-23 Pat Name: Chrissy Pantoja Department: Room: Gender: Female Director [employer]: : 1955 Requested By: Raul Arciniega Order Number: [id number] Aurelio MD: Tawnya Isaac M.D. Measurements Intervals [place] Rate: 94 P: 84 WI: 168 QRS: 79 QRSD: 81 T: 82 QT: 367 QTc: 460 Interpretive Statements SINUS RHYTHM WITH OCCASIONAL SUPRAVENTRICULAR PREMATURE COMPLEXES NONSPECIFIC ST & T-WAVE ABNORMALITY Compared to ECG 01/23/2023 11:13:39 T-wave abnormality now present ST (T wave) deviation no longer present Electronically Signed On 01-23-2023 15:24:04 CDT by Tawnya Isaac M.D. [id number]
[2023-01-23 13:27] LABS: Add Urine Microscopic? YES; Bilirubin Urine Neg (Negative); Blood Urine Neg (Negative); Glucose Urine UA Norm (Normal); Ketones Urine Negative (Negative); Leukocyte Esterase Urine Negative (Negative); Nitrate Urine Negative (Negative); Protein Urine Neg (Negative); Urine Appearance SL Hazy (CLEAR); Urine Color Yellow (Yellow); Urobilinogen Urine Norm (Negative); pH Urine 7 (5-7)
[2023-01-23 13:29] LABS: Mucus Urine 1+ /hpf; RBC Urine 0-4 /hpf (0-2); Squamous Epithelial Cell Urine 0-4 /hpf (0-5); WBC Urine 0-4 /hpf (0-5)
[2023-01-23 13:30] LABS: Add Urine Culture? Yes
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
[2023-01-23 14:12] LABS: Creatine Phosphokinase 40 U/L (26-192)
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
[2023-01-23 14:59] LABS: Glucose Point of Care 82 mg/dL (70-110)
[2023-01-23 15:21] LABS: Alcohol Level < 10 mg/dL (0-10)
--- NOTE | 2023-01-23 17:11 | ECG_ITS ---
[facility] Test Date: 2023-01-23 Pat Name: Chrissy Pantoja Department: Room: 278 Gender: Female Ramp Attendant: : 1955 Requested By: Raul Arciniega Order Number: [id number] Aurelio MD: Tawnya Isaac M.D. Measurements Intervals [place] Rate: 91 P: 86 CT: 145 QRS: 77 QRSD: 82 T: 89 QT: 406 QTc: 502 Interpretive Statements SINUS RHYTHM NONSPECIFIC ST & T-WAVE ABNORMALITY Compared to ECG 01/23/2023 13:09:12 No significant changes Electronically Signed On 01-23-2023 22:11:18 CDT by Tawnya Isaac M.D. [id number]
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
[2023-01-23] MEDS: D5-NS 0.45% + KCL 20 mEq 20 MEQ/1,000 ML BAG 75 MEQ IV (18:27)
[2023-01-23 19:03] LABS: Troponin 5 6HR 33.83 ng/L (0-10)
[2023-01-23 19:04] LABS: Troponin 5 6HR Delta -3.17 ng/L (0-12)
[2023-01-23] MEDS: thiamine 500 MG in sodium chloride 0.9% (100 ml) 100 ML 210 MG IV (20:36)
--- NOTE | 2023-01-23 21:35 | PC.NURSE ---
When asking patient to swallow water, patient falls back asleep with straw in mouth. Unable to administer PO medications at this time.
[2023-01-24] VITALS (9 sets, daily range): BP systolic 102–120; BP diastolic 52–70; PULSE 86–101; RESP 15–18; TEMP 36.4–37.3; O2SAT 90–97
[2023-01-24 06:20] LABS: Erythrocyte Sedimentation Rate 24 mm/hr (0-15)
[2023-01-24 06:22] LABS: INR 1.05 (0.8-1.2)
[2023-01-24 06:40] LABS: C Reactive Protein 12.8 mg/L (0.0-4.9); Free T4 Free Thyroxine 0.81 ng/dL (0.82-1.77); T3 Free 2.1 PG/ML (2.0-4.4); Thyroid Stimulating Hormone 2.22 uIU/mL (0.27-4.20)
[2023-01-24 06:42] LABS: Blood Urea Nitrogen 11 mg/dL (8-23); Calcium 8.1 mg/dL (8.5-10.5); Carbon Dioxide 23 mmol/L (22-29); Chloride 106 mmol/L (98-107); Glomerular Filtration Rate 158.3 mL/min (90-130); Glucose 85 mg/dL (65-115); Magnesium 2.2 mg/dL (1.7-2.3); Osmolality Calculated 285 mOsm/kg (285-295); Phosphorus 4.2 mg/dL (2.5-4.5); Sodium 138 mmol/L (136-145)
[2023-01-24 06:43] LABS: Anion Gap 13.4 (5-19); Potassium 4.4 mmol/L (3.5-5.1)
[2023-01-24] MEDS: magnesium oxide 400 mg tablet PO ×2 (08:29→17:12)
[2023-01-24] MEDS: pantoprazole DR 40 mg Tablet PO (08:30)
[2023-01-24] MEDS: aspirin 81 mg EC Tablet PO (08:30)
[2023-01-24] MEDS: neomycin-poly-bacitracin oint 28 gm 1 APPLIC TOPICAL ×2 (08:30→17:12)
[2023-01-24] MEDS: thiamine 100 mg Tablet PO (08:30)
[2023-01-24] MEDS: folic acid 1 mg Tablet PO (08:30)
[2023-01-24] MEDS: D5-NS 0.45% + KCL 20 mEq 20 MEQ/1,000 ML BAG 75 MEQ IV ×2 (09:26→22:52)
--- NOTE | 2023-01-24 10:10 | PC.CHAP ---
Pastoral Care Encounter/Spiritual Assessment Type of Contact [] Declined balance clerk visit [] Patient/Family/Request visit [] Outpatient visit [] Follow-up visit [] Physician referral [] Code/Alert [x] Routine visit [] Staff referral [] Actively dying [] Patient sleeping [] Family support [] [] Out of room [] Palliative care [] [] Receiving care in room [] Pre-surgical visit [] Trauma [] Long length of stay [] ICU visit [] Other: Relational/Emotional Strength [] Patient feels connected with others/family/visitors/staff [] Distress [] Loneliness/isolation [] Abandonment Spirituality of Patient [] Person of Louann [] Attends Yarsanism of their Louann [] Believes in Prayer [] Reads Bible or Uatsdin materials [] There are Spiritual issues to be addressed Equal Opportunity Representative Interventions [x] Prayer [x] Active listening [] Non-anxious presence [x] Spiritual/emotional support [] Crisis/trauma care [] Spiritual counseling [] Bereavement support [] Provided bereavement packet [] Provided Bible/devotional materials [] Provided toy/stuffed animal, coloring book to patient or family member [] Provided Communion [] Anointing/Ida [] Salvation [] Completed spiritual assessment [] Other: Impact on Illness or Injury [] Angry [] Fearful [] Anxious [] Often cries [] Exhaustion [] Unable to work [] Unable to attend judaism [] Unable to walk/stand [] Unable to read [] Unable to drive [] Unable to eat/drink [] Unable to sleep [] Unable to be with family [] Patient intubated [] Other: Summary Ms Lowe seemed very confused, said she wasnt sure going on with her being in hospital. continue to pray for her , physically, but more importantly spiritually. Time spent with patient 15 min
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
[2023-01-24] MEDS: quetiapine 25 mg Tablet PO (20:40)
[2023-01-25] VITALS (7 sets, daily range): BP systolic 109–134; BP diastolic 54–85; PULSE 72–87; RESP 15–17; TEMP 36.6–37; O2SAT 93–99
[2023-01-25 06:21] LABS: Anion Gap 13.4 (5-19); Blood Urea Nitrogen 6 mg/dL (8-23); Calcium 8.1 mg/dL (8.5-10.5); Carbon Dioxide 24 mmol/L (22-29); Chloride 107 mmol/L (98-107); Glomerular Filtration Rate 158.3 mL/min (90-130); Glucose 89 mg/dL (65-115); Osmolality Calculated 287 mOsm/kg (285-295); Potassium 4.4 mmol/L (3.5-5.1); Sodium 140 mmol/L (136-145)
[2023-01-25] MEDS: aspirin 81 mg EC Tablet PO (10:37)
[2023-01-25] MEDS: magnesium oxide 400 mg tablet PO ×2 (10:37→18:36)
[2023-01-25] MEDS: pantoprazole DR 40 mg Tablet PO (10:38)
[2023-01-25] MEDS: thiamine 100 mg Tablet PO (10:38)
[2023-01-25] MEDS: folic acid 1 mg Tablet PO (10:38)
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
[2023-01-25] MEDS: D5-NS 0.45% + KCL 20 mEq 20 MEQ/1,000 ML BAG 75 MEQ IV (13:08)
[2023-01-25] MEDS: quetiapine 25 mg Tablet PO (21:50)
[2023-01-26] VITALS (8 sets, daily range): BP systolic 106–124; BP diastolic 65–79; PULSE 69–93; RESP 14–18; TEMP 36.4–36.8; O2SAT 91–98
[2023-01-26] MEDS: D5-NS 0.45% + KCL 20 mEq 20 MEQ/1,000 ML BAG 75 MEQ IV ×2 (03:06→17:51)
[2023-01-26] MEDS: pantoprazole DR 40 mg Tablet PO (08:42)
[2023-01-26] MEDS: folic acid 1 mg Tablet PO (08:42)
[2023-01-26] MEDS: magnesium oxide 400 mg tablet PO ×2 (08:42→17:50)
[2023-01-26] MEDS: thiamine 100 mg Tablet PO (08:42)
[2023-01-26] MEDS: aspirin 81 mg EC Tablet PO (08:42)
[2023-01-26] MEDS: acetaminophen 325 mg Tablet 650 MG PO (08:54)
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
[2023-01-26] MEDS: neomycin-poly-bacitracin oint 28 gm 1 APPLIC TOPICAL ×2 (12:15→17:52)
--- NOTE | 2023-01-26 13:14 | PC.SOCIAL ---
IMM Update IMM not updated with pt. Guardianship pending on pt. Pt is not expected to d/c in the next 24-48hrs.
[2023-01-26] MEDS: quetiapine 25 mg Tablet PO (21:40)
[2023-01-27] VITALS (8 sets, daily range): BP systolic 92–123; BP diastolic 54–77; PULSE 78–100; RESP 15–18; TEMP 36.4–37; O2SAT 92–97
[2023-01-27] MEDS: magnesium oxide 400 mg tablet PO ×2 (11:03→17:38)
[2023-01-27] MEDS: aspirin 81 mg EC Tablet PO (11:03)
[2023-01-27] MEDS: pantoprazole DR 40 mg Tablet PO (11:04)
[2023-01-27] MEDS: thiamine 100 mg Tablet PO (11:04)
[2023-01-27] MEDS: folic acid 1 mg Tablet PO (11:04)
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
[2023-01-27] MEDS: cyanocobalamin 1,000 mcg/mL SDV 1000 MCG IM (17:38)
[2023-01-27] MEDS: neomycin-poly-bacitracin oint 28 gm 1 APPLIC TOPICAL (17:38)
[2023-01-27] MEDS: quetiapine 25 mg Tablet PO (20:10)
[2023-01-28] VITALS (9 sets, daily range): BP systolic 97–123; BP diastolic 64–83; PULSE 73–101; RESP 16–18; TEMP 36.8–37.5; O2SAT 93–99
[2023-01-28] MEDS: aspirin 81 mg EC Tablet PO (08:34)
[2023-01-28] MEDS: thiamine 100 mg Tablet PO (08:34)
[2023-01-28] MEDS: folic acid 1 mg Tablet PO (08:34)
[2023-01-28] MEDS: magnesium oxide 400 mg tablet PO ×2 (08:34→17:12)
[2023-01-28] MEDS: pantoprazole DR 40 mg Tablet PO (08:34)
[2023-01-28] MEDS: neomycin-poly-bacitracin oint 28 gm 1 APPLIC TOPICAL ×2 (08:36→17:12)
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
[2023-01-28] MEDS: quetiapine 25 mg Tablet PO (20:00)
[2023-01-29] VITALS (9 sets, daily range): BP systolic 93–113; BP diastolic 58–75; PULSE 73–98; RESP 14–18; TEMP 36.7–37.4; O2SAT 92–95
[2023-01-29] MEDS: magnesium oxide 400 mg tablet PO ×2 (10:52→16:45)
[2023-01-29] MEDS: pantoprazole DR 40 mg Tablet PO (10:52)
[2023-01-29] MEDS: thiamine 100 mg Tablet PO (10:52)
[2023-01-29] MEDS: folic acid 1 mg Tablet PO (10:52)
[2023-01-29] MEDS: aspirin 81 mg EC Tablet PO (10:52)
[2023-01-29] MEDS: neomycin-poly-bacitracin oint 28 gm 1 APPLIC TOPICAL ×2 (10:53→16:45)
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
--- NOTE | 2023-01-29 16:09 | PC.SOCIAL ---
IMM Update pg 2 of IMM not updated @ this time as guardianship is currently being pursued.
--- NOTE | 2023-01-29 16:25 | PC.OT ---
OT TREATMENT ATTEMPTED THIS P.M. PATIENT IS SLEEPING SOUNDLY AND DOES NOT AWAKEN. WILL ATTEMPT AGAIN AT A LATER TIME.
[2023-01-29] MEDS: quetiapine 25 mg Tablet PO (20:59)
[2023-01-29] MEDS: acetaminophen 325 mg Tablet 650 MG PO (20:59)
[2023-01-30 04:07] VITALS: BP 112/72; PULSE 91; RESP 19; TEMP 36.8; O2SAT 95
--- NOTE | 2023-01-30 04:45 | PC.NURSE ---
patient has had 40ml out of urine all shift, bladder scanned patient, showing less than 47 ml in bladder. provider notified.
[2023-01-30 07:47] VITALS: BP 105/66; PULSE 84; RESP 16; TEMP 36.8; O2SAT 94
[2023-01-30] MEDS: magnesium oxide 400 mg tablet PO ×2 (09:52→17:02)
[2023-01-30] MEDS: pantoprazole DR 40 mg Tablet PO (09:52)
[2023-01-30] MEDS: folic acid 1 mg Tablet PO (09:52)
[2023-01-30] MEDS: aspirin 81 mg EC Tablet PO (09:52)
[2023-01-30] MEDS: thiamine 100 mg Tablet PO (09:52)
[2023-01-30] MEDS: neomycin-poly-bacitracin oint 28 gm 1 APPLIC TOPICAL (09:53)
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
[2023-01-30 12:00] VITALS: BP 110/76; PULSE 99; RESP 16; O2SAT 94
[2023-01-30 16:00] VITALS: BP 105/60; PULSE 83; RESP 16; TEMP 37; O2SAT 94
--- NOTE | 2023-01-30 16:33 | PC.NURSE ---
Consulted by House Charge for midline placement. Explained procedure and answered questions for pt. Consent signed for midline catheter placement. Assessed RUE and noted basilic vein to be 5 mm in diameter. Using US guidance, MST, and sterile technique the RUE basilic vein was accessed x 1 stick. Device fed easily. Device aspirates and flushes easily. Device secured and dressed. EBL 5ml. Pt tolerated well. Report to primary nurse. Device is 10 cm long and RUE circumference is 27 cm. Performed by Messi Castaneda RN [facility].
[2023-01-30] MEDS: AA-Dex 4.25%-5% w/Lytes 1,000 ML with multivitamin inj 10 ML 12 ML IV (16:43)
[2023-01-30 19:41] VITALS: BP 95/60; PULSE 85; RESP 14; TEMP 37.1; O2SAT 96
[2023-01-30] MEDS: mirtazapine 15 mg Tablet 7.5 MG PO (21:40)
[2023-01-31] VITALS: BP 118/79; PULSE 84; RESP 15; TEMP 37; O2SAT 93
[2023-01-31 04:00] VITALS: BP 115/73; PULSE 81; RESP 16; TEMP 36.6; O2SAT 93
[2023-01-31 07:38] VITALS: BP 117/67; PULSE 72; RESP 16; TEMP 36.6; O2SAT 93
--- NOTE | 2023-01-31 08:12 | PC.SOCIAL ---
IMM Update pg 2 of IMM not updated @ this time as guardianship is being pursued @ this time.
[2023-01-31] MEDS: aspirin 81 mg EC Tablet PO (08:52)
[2023-01-31] MEDS: folic acid 1 mg Tablet PO (08:52)
[2023-01-31] MEDS: magnesium oxide 400 mg tablet PO ×2 (08:52→17:20)
[2023-01-31] MEDS: thiamine 100 mg Tablet PO (08:52)
[2023-01-31] MEDS: pantoprazole DR 40 mg Tablet PO (08:52)
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
[2023-01-31 11:52] VITALS: BP 114/60; PULSE 84; RESP 16; TEMP 36.8; O2SAT 94
[2023-01-31 15:54] VITALS: BP 110/70; PULSE 85; RESP 16; TEMP 37.2; O2SAT 94
[2023-01-31 20:00] VITALS: BP 90/60; PULSE 88; RESP 18; TEMP 36.7; O2SAT 93
[2023-01-31] MEDS: mirtazapine 15 mg Tablet 7.5 MG PO (21:47)
[2023-02-01] VITALS (8 sets, daily range): BP systolic 96–115; BP diastolic 60–70; PULSE 68–88; RESP 14–17; TEMP 35.4–37.1; O2SAT 91–95
[2023-02-01] MEDS: AA-Dex 4.25%-5% w/Lytes 1,000 ML with multivitamin inj 10 ML 42 ML IV (02:23)
[2023-02-01] MEDS: pantoprazole DR 40 mg Tablet PO (08:31)
[2023-02-01] MEDS: aspirin 81 mg EC Tablet PO (08:31)
[2023-02-01] MEDS: magnesium oxide 400 mg tablet PO ×2 (08:32→17:30)
[2023-02-01] MEDS: folic acid 1 mg Tablet PO (08:32)
[2023-02-01] MEDS: thiamine 100 mg Tablet PO (08:32)
--- NOTE | 2023-02-01 10:43 | P.PN_ITS ---
Subjective Subjective: Patient remarkably better today as compared to yesterday with better hydration and use of PPN We will continue PPN, she can also get her dysphagia level 6 soft and bite-size diet which should not hold her p.o. regimen at this point PPN was used to supplement her intake Vitals/I&O/Wt Last Vital Signs Temp 95.8 F L 02/01/23 09:05 Pulse 84 02/01/23 09:05 Resp 16 02/01/23 07:20 BP 104/68 02/01/23 09:05 Pulse Ox 92 02/01/23 09:05 O2 Del Method Room Air 02/01/23 09:05 01/31/23 02/01/23 02/01/23 22:59 06:59 14:59 Intake Total 120 / 360 709.2 / 1069.2 Output Total 600 / 600 300 / 900 Balance -480 / -240 409.2 / 169.2 Physical Exam Narrative: Awake and alert Pleasant and cooperative Sitting in a chair watching television Much more energetic as compared to yesterday Abdomen soft S1, S2 Currently on room air Urinary Catheter Management: Soriano: Cath Placed During This Visit: yes Reason for Continuing Indwelling Catheter: Acute Urinary Retention or O bstruction Urinary Catheter Date of Insertion: 01/23/23 Urinary Catheter Time of Insertion: 12:58 Data 01/23/23 11:30 01/25/23 05:34 A&P Assessment and plan (1) Recurrent falls: (2) Dementia associated with alcoholism without behavioral disturbance: (3) Altered mental status: (4) Suspected elder neglect: (5) Protein calorie malnutrition: (6) Debility: (7) Nicotine dependence, cigarettes, with other nicotine-induced disorders: (8) High risk for readmission: Plan Continue PPN and her p.o. regimen She is on level 6 dysphagia diet I will continue thiamine folic acid Remarkable recovery with PPN Discontinued Seroquel added mirtazapine for her anorexia Awaiting placement Attestations Medical Necessity Statement*: Continue medical management Diagnoses Recurrent falls R29.6 Dementia associated with alcoholism without behavioral disturbance F10.27 Altered mental status R41.82 Suspected elder neglect T76.01XA Protein calorie malnutrition E46 Debility R53.81 Nicotine dependence, cigarettes, with other nicotine-induced disorders F17.218 High risk for readmission Z91.89
[2023-02-01] MEDS: mirtazapine 15 mg Tablet 7.5 MG PO (21:56)
[2023-02-02] MEDS: AA-Dex 4.25%-5% w/Lytes 1,000 ML with multivitamin inj 10 ML 42 ML IV (02:34)
[2023-02-02 03:26] VITALS: BP 101/66; PULSE 76; RESP 14; TEMP 36.6; O2SAT 91
[2023-02-02 06:43] LABS: Alanine Aminotransferase 6 U/L (0-33); Albumin Level 2.3 g/dL (3.5-5.2); Alkaline Phosphatase 152 U/L (35-105); Anion Gap 12.7 (5-19); Aspartate Amino Transferase 15 U/L (0-32); Blood Urea Nitrogen 13 mg/dL (8-23); Calcium 8.2 mg/dL (8.5-10.5); Carbon Dioxide 23 mmol/L (22-29); Chloride 103 mmol/L (98-107); Globulin 4.1 g/dL (1.3-4.6); Glomerular Filtration Rate 158.3 mL/min (90-130); Glucose 104 mg/dL (65-115); Osmolality Calculated 280 mOsm/kg (285-295); Phosphorus 3.8 mg/dL (2.5-4.5); Potassium 3.7 mmol/L (3.5-5.1); Sodium 135 mmol/L (136-145); Total Bilirubin 0.3 mg/dL (0.15-1.2); Total Protein 6.4 g/dL (6.6-8.7); Triglycerides 229 mg/dL (0-150)
[2023-02-02 06:51] LABS: Magnesium 2.1 mg/dL (1.7-2.3)
--- NOTE | 2023-02-02 07:55 | PC.SOCIAL ---
IMM Update pg 2 of IMM not updated as patient has guardianship pending @ this time.
[2023-02-02 08:00] VITALS: BP 97/60; PULSE 87; RESP 15; TEMP 36.7; O2SAT 92
[2023-02-02] MEDS: thiamine 100 mg Tablet PO (09:47)
[2023-02-02] MEDS: folic acid 1 mg Tablet PO (09:47)
[2023-02-02] MEDS: aspirin 81 mg EC Tablet PO (09:48)
[2023-02-02] MEDS: pantoprazole DR 40 mg Tablet PO (09:48)
[2023-02-02] MEDS: magnesium oxide 400 mg tablet PO ×2 (09:48→17:09)
--- NOTE | 2023-02-02 11:24 | P.PN_ITS ---
Subjective Subjective: Medical management No events overnight Continue meals and PPN will discontinue by tomorrow Vitals/I&O/Wt Last Vital Signs Temp 98.0 F 02/02/23 08:00 Pulse 87 02/02/23 08:00 Resp 15 02/02/23 08:00 BP 97/60 02/02/23 08:00 Pulse Ox 92 02/02/23 08:00 O2 Del Method Room Air 02/02/23 08:00 02/01/23 02/02/23 02/02/23 22:59 06:59 14:59 Intake Total 120 / 170 1020 / 1190 240 / 240 Output Total 450 / 450 100 / 550 Balance -330 / -280 920 / 640 240 / 240 Physical Exam Narrative: Awake and alert GCS 15 Nonfocal neuro exam pleasant cooperative S1, S2 Abdomen soft line in place Urinary Catheter Management: Soriano: Cath Placed During This Visit: yes Reason for Continuing Indwelling Catheter: Acute Urinary Retention or Obstruction Urinary Catheter Date of Insertion: 01/23/23 Urinary Catheter Time of Insertion: 12:58 Data 01/23/23 11:30 02/02/23 06:10 A&P Assessment and plan (1) Recurrent falls: (2) Dementia associated with alcoholism without behavioral disturbance: (3) Altered mental status: (4) Suspected elder neglect: (5) Protein calorie malnutrition: Plan Continue medical management May discontinue PPN Attestations Medical Necessity Statement*: Continue medical therapy Diagnoses Recurrent falls R29.6 Dementia associated with alcoholism without behavioral disturbance F10.27 Altered mental status R41.82 Suspected elder neglect T76.01XA Protein calorie malnutrition E46
[2023-02-02 12:00] VITALS: BP 108/67; PULSE 62; RESP 15; TEMP 36.9; O2SAT 97
[2023-02-02 16:00] VITALS: BP 101/60; PULSE 96; RESP 16; TEMP 36.7; O2SAT 93
[2023-02-02 19:53] VITALS: BP 111/61; PULSE 94; RESP 16; TEMP 37.1; O2SAT 91
[2023-02-02] MEDS: mirtazapine 15 mg Tablet 7.5 MG PO (20:50)
[2023-02-02 23:44] VITALS: BP 104/58; PULSE 79; RESP 14; TEMP 37.1; O2SAT 92
[2023-02-03 03:54] VITALS: BP 114/68; PULSE 67; RESP 17; TEMP 37.1; O2SAT 93
[2023-02-03 08:00] VITALS: BP 105/59; PULSE 83; RESP 16; TEMP 36.2; O2SAT 92
[2023-02-03] MEDS: magnesium oxide 400 mg tablet PO ×2 (08:32→17:28)
[2023-02-03] MEDS: folic acid 1 mg Tablet PO (08:33)
[2023-02-03] MEDS: thiamine 100 mg Tablet PO (08:33)
[2023-02-03] MEDS: pantoprazole DR 40 mg Tablet PO (08:33)
[2023-02-03] MEDS: aspirin 81 mg EC Tablet PO (08:33)
--- NOTE | 2023-02-03 10:49 | PM.PN ---
Subjective Subjective: More than 90% me was consumed by the patient Urine looks slightly constipated Awake and alert Pleasant and cooperative Vitals/I&O/Wt Last Vital Signs Temp 97.2 F L 02/03/23 08:00 Pulse 83 02/03/23 08:00 Resp 16 02/03/23 08:00 BP 105/59 02/03/23 08:00 Pulse Ox 92 02/03/23 08:00 O2 Del Method Room Air 02/03/23 03:54 02/02/23 02/03/23 02/03/23 22:59 06:59 14:59 Intake Total 120 / 480 1010 / 1490 240 / 240 Output Total 425 / 425 175 / 600 Balance -305 / 55 835 / 890 240 / 240 Physical Exam Narrative: Pleasant cooperative Signs of dehydration improving Abdomen soft Pleasant and cooperative Nonfocal neuro exam S1, S2 Currently on room air Urinary Catheter Management: Soriano: Cath Placed During This Visit: yes Reason for Continuing Indwelling Catheter: Acute Urinary Retention or Obstruction Urinary Catheter Date of Insertion: 01/23/23 Urinary Catheter Time of Insertion: 12:58 Data 01/23/23 11:30 02/02/23 06:10 A&P Assessment and plan (1) Recurrent falls: (2) Dementia associated with alcoholism without behavioral disturbance: (3) Altered mental status: (4) Suspected elder neglect: (5) Traumatic compression fracture of L1 lumbar vertebra: (6) Paroxysmal atrial fibrillation: (7) Debility: (8) High risk for readmission: Plan Continue medical management PPN has been discontinued Patient ate 90% of her breakfast today Monitor urine output Signs of dehydration improving Full code Level 6 dysphagia diet with supplements, added Ensure Plus Attestations Medical Necessity Statement*: Continue medical management Diagnoses Recurrent falls R29.6 Dementia associated with alcoholism without behavioral disturbance F10.27 Altered mental status R41.82 Suspected elder neglect T76.01XA Traumatic compression fracture of L1 lumbar vertebra S32.010A Paroxysmal atrial fibrillation I48.0 Debility R53.81 High risk for readmission Z91.89
[2023-02-03 12:00] VITALS: BP 91/60; PULSE 107; RESP 16; TEMP 36.8; O2SAT 93
[2023-02-03 17:06] VITALS: BP 101/69; PULSE 92; RESP 16; TEMP 36.8; O2SAT 91
[2023-02-03 20:00] VITALS: BP 104/67; PULSE 83; RESP 17; TEMP 36.8; O2SAT 93
[2023-02-03] MEDS: mirtazapine 15 mg Tablet 7.5 MG PO (20:58)
[2023-02-04] VITALS (7 sets, daily range): BP systolic 91–104; BP diastolic 60–69; PULSE 78–94; RESP 14–17; TEMP 36.4–37; O2SAT 91–95
[2023-02-04] MEDS: pantoprazole DR 40 mg Tablet PO (08:16)
[2023-02-04] MEDS: magnesium oxide 400 mg tablet PO ×2 (08:16→16:57)
[2023-02-04] MEDS: thiamine 100 mg Tablet PO (08:16)
[2023-02-04] MEDS: aspirin 81 mg EC Tablet PO (08:16)
--- NOTE | 2023-02-04 09:38 | PM.PN ---
Subjective Subjective: Patient was watching television I told her about the breakfast. She got excited and wanted to eat Vitals/I&O/Wt Last Vital Signs Temp 98.1 F 02/04/23 08:00 Pulse 80 02/04/23 08:00 Resp 16 02/04/23 08:00 BP 100/67 02/04/23 08:00 Pulse Ox 94 02/04/23 08:00 O2 Del Method Room Air 02/04/23 04:00 02/03/23 02/04/23 02/04/23 22:59 06:59 14:59 Intake Total 240 / 720 120 / 120 Output Total 325 / 325 50 / 375 Balance -85 / 395 -50 / 345 120 / 120 Physical Exam Narrative: Signs of dehydration present Watching television Breakfast tray at the bedside Pleasant cooperative Nonfocal neuro exam S1, S2 Skin ulcers improving Pleasant and cooperative Urinary Catheter Management: Soriano: Cath Placed During This Visit: yes Reason for Continuing Indwelling Catheter: Acute Urinary Retention or Obstruction Urinary Catheter Date of Insertion: 01/23/23 Urinary Catheter Time of Insertion: 12:58 Data 01/23/23 11:30 02/02/23 06:10 A&P Assessment and plan (1) Recurrent falls: (2) Dementia associated with alcoholism without behavioral disturbance: (3) Altered mental status: (4) Suspected elder neglect: (5) Protein calorie malnutrition: (6) Debility: (7) Paroxysmal atrial fibrillation: (8) Thyroid disease: (9) Nicotine dependence, cigarettes, with other nicotine-induced disorders: (10) High risk for readmission: Plan Patient does need verbal motivation and cues We can remove her Soriano catheter Skin ulcers improving Awaiting placement Full code She is on level 6 dysphagia diet PPN discontinued Added mirtazapine for insomnia Attestations Medical Necessity Statement*: Awaiting placement Diagnoses Recurrent falls R29.6 Dementia associated with alcoholism without behavioral disturbance F10.27 Altered mental status R41.82 Suspected elder neglect T76.01XA Protein calorie malnutrition E46 Debility R53.81 Paroxysmal atrial fibrillation I48.0 Thyroid disease E07.9 Nicotine dependence, cigarettes, with other nicotine-induced disorders F17.218 High risk for readmission Z91.89
[2023-02-04] MEDS: mirtazapine 15 mg Tablet 7.5 MG PO (20:52)
[2023-02-05 03:27] VITALS: BP 107/73; PULSE 82; RESP 14; TEMP 36.5; O2SAT 92
[2023-02-05 08:00] VITALS: BP 99/62; PULSE 78; RESP 16; TEMP 36.7; O2SAT 92
[2023-02-05] MEDS: pantoprazole DR 40 mg Tablet PO (08:05)
[2023-02-05] MEDS: aspirin 81 mg EC Tablet PO (08:05)
[2023-02-05] MEDS: thiamine 100 mg Tablet PO (08:05)
[2023-02-05] MEDS: magnesium oxide 400 mg tablet PO ×2 (08:05→17:08)
[2023-02-05] MEDS: sodium chloride 0.9% 1,000 ML 30 ML IV (08:50)
--- NOTE | 2023-02-05 11:49 | PM.PN ---
Subjective Subjective: Low urine output patient is very pleasant, she needs verbal clues to eat otherwise she ignores her meal tried Did notify to her nurse She happily drank her protein shake when I offered she has 3 protein shakes on a table Vitals/I&O/Wt Last Vital Signs Temp 98.0 F 02/05/23 08:00 Pulse 78 02/05/23 08:00 Resp 16 02/05/23 08:00 BP 99/62 02/05/23 08:00 Pulse Ox 92 02/05/23 08:00 O2 Del Method Room Air 02/05/23 03:27 02/04/23 02/05/23 02/05/23 22:59 06:59 14:59 Intake Total 60 / 60 Output Total 125 / 125 Balance -125 / 235 60 / 60 Physical Exam Narrative: Signs of dehydration present however improving Awake and alert Pleasant and cooperative Nonfocal neuro exam GCS 15 S1, S2 Currently on room air Urinary Catheter Management: Soriano: Cath Placed During This Visit: yes, but has since been removed by the nurse Reason for Continuing Indwelling Catheter: Decision to DC Catheter Urinary Catheter Date of Insertion: 01/23/23 Urinary Catheter Time of Insertion: 12:58 Date Urinary Catheter Removed: 02/04/23 Time Urinary Catheter Discontinued: 15:11 Data 01/23/23 11:30 02/02/23 06:10 A&P Assessment and plan (1) Recurrent falls: (2) Dementia associated with alcoholism without behavioral disturbance: (3) Altered mental status: (4) Suspected elder neglect: (5) Protein calorie malnutrition: (6) Paroxysmal atrial fibrillation: (7) Debility: (8) Thyroid disease: (9) Nicotine dependence, cigarettes, with other nicotine-induced disorders: (10) High risk for readmission: Plan Low urine output Patient needs verbal cues and motivation to eat, Currently on mirtazapine Can start IV fluids Soriano catheter has been removed Patient does not have any signs of cauda equina Recent kyphoplasty by Dr. Hernadez Continue thiamine Attestations Medical Necessity Statement*: Awaiting placement Diagnoses Recurrent falls R29.6 Dementia associated with alcoholism without behavioral disturbance F10.27 Altered mental status R41.82 Suspected elder neglect T76.01XA Protein calorie malnutrition E46 Paroxysmal atrial fibrillation I48.0 Debility R53.81 Thyroid disease E07.9 Nicotine dependence, cigarettes, with other nicotine-induced disorders F17.218 High risk for readmission Z91.89
[2023-02-05 12:00] VITALS: BP 101/69; PULSE 108; RESP 16; TEMP 36.4; O2SAT 95
--- NOTE | 2023-02-05 12:32 | PC.SOCIAL ---
IMM Update pg 2 of IMM not updated @ this time as guardianship is pending.
[2023-02-05 16:00] VITALS: BP 102/70; PULSE 98; RESP 16; TEMP 36.8; O2SAT 94
[2023-02-05 19:50] VITALS: BP 108/69; PULSE 86; RESP 14; TEMP 36.5; O2SAT 97
[2023-02-05] MEDS: mirtazapine 15 mg Tablet 7.5 MG PO (21:14)
[2023-02-05 23:05] VITALS: BP 111/74; PULSE 82; RESP 16; TEMP 36.8; O2SAT 94
[2023-02-06 03:42] VITALS: BP 102/60; PULSE 89; RESP 13; TEMP 36.4; O2SAT 94
[2023-02-06 07:30] VITALS: BP 102/66; PULSE 84; RESP 16; TEMP 36.8; O2SAT 93
[2023-02-06] MEDS: pantoprazole DR 40 mg Tablet PO (09:34)
[2023-02-06] MEDS: thiamine 100 mg Tablet PO (09:34)
[2023-02-06] MEDS: aspirin 81 mg EC Tablet PO (09:34)
[2023-02-06] MEDS: magnesium oxide 400 mg tablet PO ×2 (09:34→17:40)
[2023-02-06] MEDS: sodium chloride 0.9% 1,000 ML 30 ML IV (09:36)
--- NOTE | 2023-02-06 10:19 | PC.NURSE ---
Addendum entered by CATHERINE Harp 02/06/23 10:33: Saline lock replaced. Original Note: Dressing changed on right upper arm PICC line. Site looked free of infection, no redness or swelling. Dressing has been dated as to when it was changed. Cleaned area with chlorhexadine prep. Steri strip x3 to secure tubing. Covered with clear dressing. Per sterile technique. Patient tolerated well, no complaints of pain and was pleasant through out dressing change. Alyson Lees [employer], Inna SUEN RN
[2023-02-06 11:12] VITALS: BP 100/64; PULSE 84; RESP 17; TEMP 37.3; O2SAT 91
--- NOTE | 2023-02-06 11:50 | PC.OT ---
Patient pleasant and adamantly opposed to OT this date.
--- NOTE | 2023-02-06 12:10 | PM.PN ---
Subjective Subjective: Awaiting placement Watching television this morning no Overnight events Vitals/I&O/Wt Last Vital Signs Temp 99.1 F 02/06/23 11:12 Pulse 84 02/06/23 11:12 Resp 17 02/06/23 11:12 BP 100/64 02/06/23 11:12 Pulse Ox 91 02/06/23 11:12 O2 Del Method Room Air 02/06/23 11:12 02/05/23 02/06/23 02/06/23 22:59 06:59 14:59 Intake Total 240 / 540 820 / 820 Balance 240 / 540 820 / 820 Physical Exam Narrative: Laying supine in bed watching television Doing well on room air S1, S2 Pleasant cooperative Nonfocal neuro exam Skin ulcer with signs of improvement Urinary Catheter Management: Soriano: Cath Placed During This Visit: yes, but has since been removed by the nurse Reason for Continuing Indwelling Catheter: Decision to DC Catheter Urinary Catheter Date of Insertion: 01/23/23 Urinary Catheter Time of Insertion: 12:58 Date Urinary Catheter Removed: 02/04/23 Time Urinary Catheter Discontinued: 15:11 Data 01/23/23 11:30 02/02/23 06:10 A&P Assessment and plan (1) Recurrent falls: (2) Dementia associated with alcoholism without behavioral disturbance: (3) Altered mental status: (4) Suspected elder neglect: (5) Protein calorie malnutrition: (6) Traumatic compression fracture of L1 lumbar vertebra: (7) Paroxysmal atrial fibrillation: (8) Debility: (9) Thyroid disease: (10) Nicotine dependence, cigarettes, with other nicotine-induced disorders: (11) High risk for readmission: Plan Not plan to change any of her medications Awaiting placement Continue thiamine 1 bowel movement, able to void Soriano catheter has removed Status post kyphoplasty Attestations Medical Necessity Statement*: Continue medical management Diagnoses Recurrent falls R29.6 Dementia associated with alcoholism without behavioral disturbance F10.27 Altered mental status R41.82 Suspected elder neglect T76.01XA Protein calorie malnutrition E46 Traumatic compression fracture of L1 lumbar vertebra S32.010A Paroxysmal atrial fibrillation I48.0 Debility R53.81 Thyroid disease E07.9 Nicotine dependence, cigarettes, with other nicotine-induced disorders F17.218 High risk for readmission Z91.89
[2023-02-06 15:17] VITALS: BP 107/68; PULSE 78; RESP 16; TEMP 36.8; O2SAT 92
[2023-02-06 19:59] VITALS: BP 109/68; PULSE 88; RESP 16; TEMP 37.4; O2SAT 94
[2023-02-06] MEDS: mirtazapine 15 mg Tablet 7.5 MG PO (21:08)
[2023-02-06 23:22] VITALS: BP 111/68; PULSE 86; RESP 16; TEMP 37.2; O2SAT 90
[2023-02-07 04:50] VITALS: BP 105/66; PULSE 80; RESP 15; TEMP 36.5; O2SAT 92
[2023-02-07 07:41] VITALS: BP 110/72; PULSE 78; RESP 17; TEMP 36.7; O2SAT 93
--- NOTE | 2023-02-07 08:06 | PC.SOCIAL ---
IMM Update pg 2 of IMM not updated @ this time as guardianship is pending.
[2023-02-07] MEDS: thiamine 100 mg Tablet PO (08:41)
[2023-02-07] MEDS: pantoprazole DR 40 mg Tablet PO (08:41)
[2023-02-07] MEDS: magnesium oxide 400 mg tablet PO ×2 (08:41→17:16)
[2023-02-07] MEDS: aspirin 81 mg EC Tablet PO (08:41)
--- NOTE | 2023-02-07 10:14 | PM.PN ---
Subjective Subjective: No significant events overnight Stable hemodynamics Vitals/I&O/Wt Last Vital Signs Temp 98.1 F 02/07/23 07:41 Pulse 78 02/07/23 07:41 Resp 17 02/07/23 07:41 BP 110/72 02/07/23 07:41 Pulse Ox 93 02/07/23 07:41 O2 Del Method Room Air 02/07/23 07:41 02/06/23 02/07/23 02/07/23 22:59 06:59 14:59 Intake Total 120 / 1060 480 / 480 Balance 120 / 1060 480 / 480 Physical Exam Narrative: Signs of dehydration present S1, S2 Abdomen soft: Pleasant Verbally redirectable Hemodynamic stable Extremity ulcers/wound healing Urinary Catheter Management: Soriano: Cath Placed During This Visit: yes, but has since been removed by the nurse Reason for Continuing Indwelling Catheter: Decision to DC Catheter Urinary Catheter Date of Insertion: 01/23/23 Urinary Catheter Time of Insertion: 12:58 Date Urinary Catheter Removed: 02/04/23 Time Urinary Catheter Discontinued: 15:11 Data 01/23/23 11:30 02/02/23 06:10 A&P Assessment and plan (1) High risk for readmission: (2) Thyroid disease: (3) Debility: (4) Protein calorie malnutrition: (5) Altered mental status: (6) Dementia associated with alcoholism without behavioral disturbance: (7) Recurrent falls: (8) Suspected elder neglect: (9) Nicotine dependence, cigarettes, with other nicotine-induced disorders: (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: Plan Awaiting placement I would avoid adding PPN or IV fluids at this point patient is verbally redirectable and eats well with verbal cues Continue thiamine Attestations Medical Necessity Statement*: Awaiting placement Diagnoses High risk for readmission Z91.89 Thyroid disease E07.9 Debility R53.81 Protein calorie malnutrition E46 Altered mental status R41.82 Dementia associated with alcoholism without behavioral disturbance F10.27 Recurrent falls R29.6 Suspected elder neglect T76.01XA Nicotine dependence, cigarettes, with other nicotine-induced disorders F17.218 Wernicke-Korsakoff psychosis F04
[2023-02-07 11:07] VITALS: BP 105/59; PULSE 84; RESP 17; TEMP 36.8; O2SAT 98
--- NOTE | 2023-02-07 15:00 | PC.OT ---
THIS PATIENT'S TREATMENT PLAN FOR OT ENDS TODAY. PATIENT HAS MADE MINIMAL PROGRESS TOWARDS GOALS; NO FURTHER SKILLED OT REQUIRED AT THIS TIME. D/C OT
[2023-02-07 15:58] VITALS: BP 102/66; PULSE 88; RESP 18; TEMP 37.1; O2SAT 97
[2023-02-07 19:57] VITALS: BP 108/70; PULSE 85; RESP 16; TEMP 36.9; O2SAT 93
[2023-02-07] MEDS: mirtazapine 15 mg Tablet 7.5 MG PO (20:10)
[2023-02-07 23:12] VITALS: BP 105/69; PULSE 84; RESP 15; TEMP 36.6; O2SAT 90
[2023-02-08 04:07] VITALS: BP 113/72; PULSE 85; RESP 15; TEMP 36.8; O2SAT 91
--- NOTE | 2023-02-08 07:11 | PM.PN ---
Subjective Subjective: No significant events Vitals/I&O/Wt Last Vital Signs Temp 98.2 F 02/08/23 04:07 Pulse 85 02/08/23 04:07 Resp 15 02/08/23 04:07 BP 113/72 02/08/23 04:07 Pulse Ox 91 02/08/23 04:07 O2 Del Method Room Air 02/08/23 04:07 02/07/23 02/08/23 02/08/23 22:59 06:59 14:59 Intake Total 600 / 2303 Balance 600 / 2303 Physical Exam Narrative: Pleasant cooperative GCS 15 Signs of dehydration improving Skin ulcers improving Answer simple questions S1, S2 Doing well on room air Urinary Catheter Management: Soriano: Cath Placed During This Visit: yes, but has since been removed by the nurse Reason for Continuing Indwelling Catheter: Decision to DC Catheter Urinary Catheter Date of Insertion: 01/23/23 Urinary Catheter Time of Insertion: 12:58 Date Urinary Catheter Removed: 02/04/23 Time Urinary Catheter Discontinued: 15:11 Data 01/23/23 11:30 02/02/23 06:10 A&P Assessment and plan (1) Wernicke-Korsakoff psychosis: (2) Recurrent falls: (3) Dementia associated with alcoholism without behavioral disturbance: (4) Altered mental status: (5) Protein calorie malnutrition: Plan Awaiting placement Attestations Medical Necessity Statement*: Awaiting placement Coding Level of Care Code Acute Code for Chg Fwd Diagnoses Wernicke-Korsakoff psychosis F04 Recurrent falls R29.6 Dementia associated with alcoholism without behavioral disturbance F10.27 Altered mental status R41.82 Protein calorie malnutrition E46
[2023-02-08 08:00] VITALS: BP 103/69; PULSE 83; RESP 16; TEMP 37; O2SAT 91
[2023-02-08] MEDS: aspirin 81 mg EC Tablet PO (08:25)
[2023-02-08] MEDS: pantoprazole DR 40 mg Tablet PO (08:25)
[2023-02-08] MEDS: thiamine 100 mg Tablet PO (08:25)
[2023-02-08] MEDS: magnesium oxide 400 mg tablet PO ×2 (08:25→17:36)
--- NOTE | 2023-02-08 11:31 | CT_ITS ---
WS: [id number] CT HEAD TECHNIQUE: Noncontrast CT of the head obtained from the skullbase to the vertex. CLINICAL INFORMATION: s/p fall COMPARISON: CT 01/23/2023 DLP: 1090.[address] scans at [facility] use at least one of these dose optimization techniques: automated e xposure control; mA and/or kV adjustment per patient size (includes targeted exams where dose is matc hed to clinical indication); or iterative reconstruction. FINDINGS: No evidence of intracranial hemorrhage or mass effect. Ventricular system and basal cisterns are cotter nt. Mild small vessel changes with moderate parenchymal volume loss. No extra-axial fluid collections . No evidence of mass or mass effect. Paranasal sinuses and mastoid air cells are well aerated. .Normal visualized soft tissues. IMPRESSION: 1. No evidence of intracranial hemorrhage or mass effect. 2. No acute intracranial findings.
--- NOTE | 2023-02-08 11:31 | PC.NURSE ---
1120 - Pt witnessed laying on floor next to chair. Pt head did hit the foor. VS Stable - BP 118/78, T 97.9, P 89, O2 99%. No injuries noted. Alert and oriented to baseline. Notified Dr. Padilla, CT of head ordered.
[2023-02-08 12:00] VITALS: BP 107/74; PULSE 85; RESP 17; TEMP 36.6; O2SAT 93
[2023-02-08 16:00] VITALS: BP 104/69; PULSE 88; RESP 16; TEMP 37.2; O2SAT 91
[2023-02-08 20:00] VITALS: BP 98/62; PULSE 79; RESP 16; TEMP 36.9; O2SAT 93
[2023-02-08] MEDS: mirtazapine 15 mg Tablet 7.5 MG PO (21:31)
[2023-02-08 23:57] VITALS: BP 114/69; PULSE 77; RESP 16; TEMP 37.2; O2SAT 93
[2023-02-09 03:30] VITALS: BP 107/67; PULSE 87; RESP 16; TEMP 36.9; O2SAT 90
[2023-02-09 08:00] VITALS: BP 111/73; PULSE 78; RESP 16; TEMP 36.7; O2SAT 90
[2023-02-09] MEDS: thiamine 100 mg Tablet PO (08:11)
[2023-02-09] MEDS: pantoprazole DR 40 mg Tablet PO (08:12)
[2023-02-09] MEDS: magnesium oxide 400 mg tablet PO ×2 (08:12→18:49)
[2023-02-09] MEDS: aspirin 81 mg EC Tablet PO (08:12)
--- NOTE | 2023-02-09 10:00 | PM.PN ---
Subjective Subjective: As per supportive employment case manager court date will be verified in a few days CT head unremarkable, patient lost her balance and hit her head yesterday when she was trying get out of the chair and sit on the bed No focal complaints Vitals/I&O/Wt Last Vital Signs Temp 98.1 F 02/09/23 08:00 Pulse 78 02/09/23 08:00 Resp 16 02/09/23 08:00 BP 111/73 02/09/23 08:00 Pulse Ox 90 02/09/23 08:00 O2 Del Method Room Air 02/09/23 08:00 02/08/23 02/09/23 02/09/23 22:59 06:59 14:59 Intake Total 240 / 600 118 / 118 Balance 240 / 600 118 / 118 Physical Exam Narrative: Nonfocal neuro exam S1, S2 Signs of dehydration improving Pleasant and cooperative In good spirits GCS 15 Abdomen soft Currently on room air Urinary Catheter Management: Soriano: Cath Placed During This Visit: yes, but has since been removed by the nurse Reason for Continuing Indwelling Catheter: Decision to DC Catheter Urinary Catheter Date of Insertion: 01/23/23 Urinary Catheter Time of Insertion: 12:58 Date Urinary Catheter Removed: 02/04/23 Time Urinary Catheter Discontinued: 15:11 Data 01/23/23 11:30 02/02/23 06:10 A&P Assessment and plan (1) Wernicke-Korsakoff psychosis: (2) Recurrent falls: (3) Dementia associated with alcoholism without behavioral disturbance: (4) Altered mental status: (5) Suspected elder neglect: (6) Protein calorie malnutrition: (7) Paroxysmal atrial fibrillation: (8) Debility: (9) Thyroid disease: (10) Nicotine dependence, cigarettes, with other nicotine-induced disorders: (11) High risk for readmission: Plan Fall in the hospital, CT head unremarkable No active signs of stroke Nonfocal neuro exam No active trauma Patient is pleasant cooperative GCS 15 NIH 0 Lower extremity ulcers improving Continue thiamine Court date will be verified in next day or 2 Attestations Medical Necessity Statement*: Continue medical management Diagnoses Wernicke-Korsakoff psychosis F04 Recurrent falls R29.6 Dementia associated with alcoholism without behavioral disturbance F10.27 Altered mental status R41.82 Suspected elder neglect T76.01XA Protein calorie malnutrition E46 Paroxysmal atrial fibrillation I48.0 Debility R53.81 Thyroid disease E07.9 Nicotine dependence, cigarettes, with other nicotine-induced disorders F17.218 High risk for readmission Z91.89
[2023-02-09 11:57] VITALS: BP 102/68; PULSE 91; RESP 16; TEMP 37.5; O2SAT 92
[2023-02-09 15:55] VITALS: BP 103/56; PULSE 87; RESP 17; TEMP 36.8; O2SAT 99
[2023-02-09 20:00] VITALS: BP 114/72; PULSE 84; RESP 15; TEMP 37.2; O2SAT 92
[2023-02-09] MEDS: mirtazapine 15 mg Tablet 7.5 MG PO (21:22)
[2023-02-09 23:22] VITALS: BP 108/69; PULSE 88; RESP 16; TEMP 36.8; O2SAT 91
[2023-02-10 04:00] VITALS: BP 101/67; PULSE 77; RESP 17; TEMP 36.4; O2SAT 90
[2023-02-10 07:00] VITALS: BP 99/64; PULSE 74; RESP 16; TEMP 36.4; O2SAT 91
--- NOTE | 2023-02-10 07:57 | PM.PN ---
Subjective Subjective: no new events Vitals/I&O/Wt Last Vital Signs Temp 97.5 F L 02/10/23 07:00 Pulse 74 02/10/23 07:00 Resp 16 02/10/23 07:00 BP 99/64 02/10/23 07:00 Pulse Ox 91 02/10/23 07:00 O2 Del Method Room Air 02/10/23 07:00 02/09/23 02/10/23 02/10/23 22:59 06:59 14:59 Intake Total 120 / 738 Balance 120 / 738 Physical Exam Narrative: EOMI S1 S2 ABd soft dehydration improving on RA doing well GCS15 Urinary Catheter Management: Soriano: Cath Placed During This Visit: yes, but has since been removed by the nurse Reason for Continuing Indwelling Catheter: Decision to DC Catheter Urinary Catheter Date of Insertion: 01/23/23 Urinary Catheter Time of Insertion: 12:58 Date Urinary Catheter Removed: 02/04/23 Time Urinary Catheter Discontinued: 15:11 Data 01/23/23 11:30 02/02/23 06:10 A&P Assessment and plan (1) Wernicke-Korsakoff psychosis: (2) Recurrent falls: (3) Dementia associated with alcoholism without behavioral disturbance: (4) Altered mental status: (5) Suspected elder neglect: (6) Protein calorie malnutrition: Plan awaiting placement Attestations Medical Necessity Statement*: continue med management Diagnoses Wernicke-Korsakoff psychosis F04 Recurrent falls R29.6 Dementia associated with alcoholism without behavioral disturbance F10.27 Altered mental status R41.82 Suspected elder neglect T76.01XA Protein calorie malnutrition E46
[2023-02-10] MEDS: aspirin 81 mg EC Tablet PO (08:14)
[2023-02-10] MEDS: pantoprazole DR 40 mg Tablet PO (08:14)
[2023-02-10] MEDS: magnesium oxide 400 mg tablet PO ×2 (08:14→18:05)
[2023-02-10] MEDS: thiamine 100 mg Tablet PO (08:14)
[2023-02-10] MEDS: acetaminophen 325 mg Tablet 650 MG PO (10:30)
[2023-02-10 11:39] VITALS: BP 113/63; PULSE 88; RESP 16; TEMP 36.7; O2SAT 100
[2023-02-10 16:00] VITALS: BP 98/63; PULSE 82; RESP 16; TEMP 36.4; O2SAT 95
[2023-02-10 20:00] VITALS: BP 102/64; PULSE 85; RESP 18; TEMP 36.5; O2SAT 90
[2023-02-10] MEDS: mirtazapine 15 mg Tablet 7.5 MG PO (21:20)
[2023-02-10 23:55] VITALS: BP 119/75; PULSE 79; RESP 16; TEMP 36.2; O2SAT 96
[2023-02-11 04:00] VITALS: BP 112/64; PULSE 74; RESP 16; TEMP 36.4; O2SAT 92
[2023-02-11 08:00] VITALS: BP 106/65; PULSE 71; RESP 16; TEMP 36.4; O2SAT 91
[2023-02-11] MEDS: pantoprazole DR 40 mg Tablet PO (10:31)
[2023-02-11] MEDS: magnesium oxide 400 mg tablet PO ×2 (10:31→17:28)
[2023-02-11] MEDS: aspirin 81 mg EC Tablet PO (10:31)
[2023-02-11] MEDS: thiamine 100 mg Tablet PO (10:32)
--- NOTE | 2023-02-11 10:59 | PM.PN ---
Subjective Subjective: is visiting her at the bedside No active events No overnight events Vitals/I&O/Wt Last Vital Signs Temp 97.6 F 02/11/23 08:00 Pulse 71 02/11/23 08:00 Resp 16 02/11/23 08:00 BP 106/65 02/11/23 08:00 Pulse Ox 91 02/11/23 08:00 O2 Del Method Room Air 02/10/23 11:39 02/10/23 02/11/23 02/11/23 23:59 06:59 14:59 Intake Total 240 / 240 Balance 240 / 240 Physical Exam Narrative: Family at the bedside Awake and alert Signs of dehydration improved Pleasant cooperative Nonfocal neuro exam Skin ulcers on lower extremities improved Nonfocal neuro exam Doing well on room air Urinary Catheter Management: Soriano: Cath Placed During This Visit: yes, but has since been removed by the nurse Reason for Continuing Indwelling Catheter: Decision to DC Catheter Urinary Catheter Date of Insertion: 01/23/23 Urinary Catheter Time of Insertion: 12:58 Date Urinary Catheter Removed: 02/04/23 Time Urinary Catheter Discontinued: 15:11 Data 01/23/23 11:30 02/02/23 06:10 A&P Assessment and plan (1) Wernicke-Korsakoff psychosis: (2) Recurrent falls: (3) Dementia associated with alcoholism without behavioral disturbance: (4) Altered mental status: (5) Suspected elder neglect: (6) Protein calorie malnutrition: (7) Traumatic compression fracture of L1 lumbar vertebra: (8) Paroxysmal atrial fibrillation: (9) Debility: (10) Thyroid disease: (11) High risk for readmission: Plan Multiple admission in the past related to dehydration, poor p.o. intake, Wernicke's Korsakoff syndrome improved with thiamine and folic acid, we are pursuing guardianship to send her to prison/rehab, patient fell during hospitalization, CT head unremarkable, refeeding syndrome improved, court date February 23? No change in medications Awaiting placement Attestations Medical Necessity Statement*: Continue medical management Diagnoses Wernicke-Korsakoff psychosis F04 Recurrent falls R29.6 Dementia associated with alcoholism without behavioral disturbance F10.27 Altered mental status R41.82 Suspected elder neglect T76.01XA Protein calorie malnutrition E46 Traumatic compression fracture of L1 lumbar vertebra S32.010A Paroxysmal atrial fibrillation I48.0 Debility R53.81 Thyroid disease E07.9 High risk for readmission Z91.89
[2023-02-11 12:00] VITALS: BP 102/68; BP 106/65; PULSE 71; PULSE 84; RESP 16; RESP 17; TEMP 36.4; TEMP 36.7; O2SAT 93
[2023-02-11 16:00] VITALS: BP 103/60; PULSE 77; RESP 16; TEMP 36.9; O2SAT 96
[2023-02-11 20:00] VITALS: BP 100/66; PULSE 91; RESP 16; TEMP 36.4; O2SAT 90
[2023-02-11] MEDS: mirtazapine 15 mg Tablet 7.5 MG PO (21:00)
[2023-02-12] VITALS: BP 111/71; PULSE 77; RESP 16; TEMP 36.6; O2SAT 95
[2023-02-12 04:00] VITALS: BP 92/53; PULSE 94; RESP 17; TEMP 36.5; O2SAT 91
[2023-02-12 07:52] VITALS: BP 108/72; PULSE 88; RESP 18; TEMP 36.9; O2SAT 94
--- NOTE | 2023-02-12 08:01 | PC.SOCIAL ---
IMM Update IMM not updated, pending guardianship on pt. Pt is not expected to d/c in the next 24-48hrs.
[2023-02-12] MEDS: pantoprazole DR 40 mg Tablet PO (08:43)
[2023-02-12] MEDS: magnesium oxide 400 mg tablet PO ×2 (08:44→17:42)
[2023-02-12] MEDS: thiamine 100 mg Tablet PO (08:44)
[2023-02-12] MEDS: aspirin 81 mg EC Tablet PO (08:45)
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
[2023-02-12 12:04] VITALS: BP 108/70; PULSE 78; RESP 18; TEMP 36.8; O2SAT 93
[2023-02-12 16:07] VITALS: BP 100/65; PULSE 75; RESP 18; TEMP 37.3; O2SAT 93
[2023-02-12 20:00] VITALS: BP 109/67; PULSE 76; RESP 18; TEMP 36.5; O2SAT 93
[2023-02-12] MEDS: mirtazapine 15 mg Tablet 7.5 MG PO (20:17)
[2023-02-13] VITALS (8 sets, daily range): BP systolic 110–120; BP diastolic 54–78; PULSE 73–85; RESP 16–18; TEMP 36.3–36.8; O2SAT 91–96
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
[2023-02-13] MEDS: cetirizine 10 mg Tablet PO (11:30)
[2023-02-13] MEDS: mirtazapine 15 mg Tablet 7.5 MG PO (20:42)
[2023-02-14 04:22] VITALS: BP 107/65; PULSE 71; RESP 16; TEMP 36.8; O2SAT 94
[2023-02-14 07:16] VITALS: BP 109/52; PULSE 66; RESP 18; TEMP 37; O2SAT 93
[2023-02-14] MEDS: cetirizine 10 mg Tablet PO (08:20)
[2023-02-14] MEDS: thiamine 100 mg Tablet PO (08:20)
[2023-02-14] MEDS: folic acid 1 mg Tablet PO (08:20)
[2023-02-14] MEDS: aspirin 81 mg EC Tablet PO (08:20)
--- NOTE | 2023-02-14 10:54 | PC.CHAP ---
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] Patient/Family/Request visit [] Outpatient visit [] Follow-up visit [] Physician referral [] Code/Alert [] Routine visit [] Staff referral [] Actively dying [] Patient sleeping [] Family support [] [] Out of room [] Palliative care [] [] Receiving care in room [] Pre-surgical visit [] Trauma [] Long length of stay [] ICU visit [] Other: Relational/Emotional Strength [] Patient feels connected with others/family/visitors/staff [x] Distress [] Loneliness/isolation [] Abandonment Spirituality of Patient [] Person of Louann [] Attends Druze of their Louann [] Believes in Prayer [] Reads Bible or Orthodoxy materials [] There are Spiritual issues to be addressed Clinical Project Coordinator Interventions [x] Prayer [x] Active listening [] Non-anxious presence [] Spiritual/emotional support [] Crisis/trauma care [] Spiritual counseling [] Bereavement support [] Provided bereavement packet [] Provided Bible/devotional materials [] Provided toy/stuffed animal, coloring book to patient or family member [] Provided Communion [] Anointing/[place] [] Salvation [] Completed spiritual assessment [] Other: Impact on Illness or Injury [] Angry [] Fearful [] Anxious [] Often cries [] Exhaustion [] Unable to work [] Unable to attend baptist [] Unable to walk/stand [] Unable to read [] Unable to drive [] Unable to eat/drink [] Unable to sleep [] Unable to be with family [] Patient intubated [] Other: Summary Time spent with patient 15 min
[2023-02-14 11:10] VITALS: BP 108/65; PULSE 89; RESP 17; TEMP 36.7; O2SAT 95
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
--- NOTE | 2023-02-14 13:23 | PC.SOCIAL ---
IMM Update IMM not updated, pending guardianship on pt. Pt is not expected to d/c in the next 24-48hrs.
[2023-02-14 15:14] VITALS: BP 108/58; PULSE 67; RESP 16; TEMP 37.3; O2SAT 94
[2023-02-14 19:36] VITALS: BP 103/63; PULSE 76; RESP 16; TEMP 36.8; O2SAT 94
[2023-02-14] MEDS: mirtazapine 15 mg Tablet 7.5 MG PO (21:47)
[2023-02-14 23:43] VITALS: BP 107/70; PULSE 75; RESP 16; TEMP 36.9; O2SAT 95
[2023-02-15 04:23] VITALS: BP 114/67; PULSE 70; RESP 16; TEMP 36.8; O2SAT 92
[2023-02-15 07:47] VITALS: BP 112/75; PULSE 69; RESP 16; TEMP 36.4; O2SAT 94
[2023-02-15] MEDS: cetirizine 10 mg Tablet PO (09:36)
[2023-02-15] MEDS: aspirin 81 mg EC Tablet PO (09:36)
[2023-02-15] MEDS: folic acid 1 mg Tablet PO (09:36)
[2023-02-15] MEDS: thiamine 100 mg Tablet PO (09:36)
[2023-02-15 11:47] VITALS: BP 94/63; PULSE 74; RESP 17; TEMP 36.3; O2SAT 97
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
[2023-02-15 14:36] LABS: Alanine Aminotransferase 16 U/L (0-33); Albumin Level 2.6 g/dL (3.5-5.2); Alkaline Phosphatase 186 U/L (35-105); Anion Gap 11.8 (5-19); Aspartate Amino Transferase 27 U/L (0-32); Blood Urea Nitrogen 7 mg/dL (8-23); Calcium 8.8 mg/dL (8.5-10.5); Carbon Dioxide 26 mmol/L (22-29); Chloride 107 mmol/L (98-107); Glomerular Filtration Rate 122.3 mL/min (90-130); Glucose 98 mg/dL (65-115); Osmolality Calculated 290 mOsm/kg (285-295); Potassium 3.8 mmol/L (3.5-5.1); Sodium 141 mmol/L (136-145); Total Bilirubin 0.2 mg/dL (0.15-1.2); Total Protein 6.6 g/dL (6.6-8.7)
[2023-02-15 14:46] LABS: Basophils % 0.5 %; Eosinophils # 0.1 10^3/uL (0.0-0.8); Eosinophils % 1.5 %; Lymphocytes # 1.8 10^3/uL (0.8-4.8); Lymphocytes % 29.8 %; Mean Corpuscular HGB Conc 31.5 g/dL (30-55); Mean Corpuscular Hemoglobin 32.1 pg (27-33); Mean Corpuscular Volume 101.8 fl (85-98); Mean Platelet Volume 9.1 fL (7.4-10.4); Monocytes # 0.4 10^3/uL (0.2-0.9); Monocytes % 6.9 %; Neutrophils # 3.59 10^3/uL (1.8-7.7); Neutrophils % 60.8 %; Nucleated Red Blood Cells % 0 %; Platelet Count 314 10^3/cmm (157-399); Red Blood Count 3.83 10^6/uL (3.85-5.65); White Blood Count 5.91 10^3/uL (3.29-11.43)
[2023-02-15 16:00] VITALS: BP 99/59; PULSE 89; RESP 16; TEMP 36.7; O2SAT 95
[2023-02-15 19:31] VITALS: BP 102/68; PULSE 88; RESP 16; TEMP 36.7; O2SAT 93
[2023-02-15] MEDS: mirtazapine 15 mg Tablet 7.5 MG PO (20:27)
[2023-02-15 23:16] VITALS: BP 110/70; PULSE 78; RESP 15; TEMP 36.8; O2SAT 94
[2023-02-16] VITALS (9 sets, daily range): BP systolic 104–120; BP diastolic 61–77; PULSE 62–88; RESP 15–17; TEMP 36.6–37.4; O2SAT 91–95
--- NOTE | 2023-02-16 09:40 | PC.NURSE ---
Dr. Bright notified patient fell this am. Dr. Bright ordering a CT Scan. Vitals are BP 120/77, O2 95%, Resp 17, HR 88, Temp 98.3. This nurse called to room after patient found in bathroom on the floor. Charge nurse on the scene upon entering the room.
--- NOTE | 2023-02-16 10:01 | CT_ITS ---
WS: [id number] CT HEAD NONCONTRAST HISTORY: Patient fell in room and claims to have hit head TECHNIQUE: Contiguous axial imaging performed through the brain in 2.5 mm imaging. Bone and soft tiss ue windows. Sagittal and coronal reformats reviewed. All CT scans at [facility] use at least one of these dose optimization techniques: automated exposure control; mA and/or kV adjustment per pa tient size (includes targeted exams where dose is matched to clinical indication); or iterative recon struction. DLP: 1046.48 mGy.cm COMPARISON: 02/08/2023 No acute intracranial hemorrhage, midline shift or mass effect. No atrophy or prior infarcts or herniation. Mild small vessel ischemic changes with parenchymal volum e loss. No interval change. Ventricles: Normal size with no hydrocephalus. Paranasal sinuses: As visualized are clear. Mastoid air cells: Well pneumatized. Calvarium and scalp: Skull is intact with no soft tissue edema or swelling. IMPRESSION: 1. No acute intracranial hemorrhage or edema. 2. Stable atrophy and small vessel ischemic disease.
[2023-02-16] MEDS: aspirin 81 mg EC Tablet PO (10:03)
[2023-02-16] MEDS: folic acid 1 mg Tablet PO (10:03)
[2023-02-16] MEDS: thiamine 100 mg Tablet PO (10:04)
--- NOTE | 2023-02-16 13:43 | XRR_ITS ---
PROCEDURE INFORMATION: Exam: XR Ribs Exam date and time: 02/16/2023 2:56 PM Age: 67 years old Clinical indication: Pain; Other: Ribs; Patient HX: PT. Fell; Additional info: Fall TECHNIQUE: Imaging protocol: Radiologic exam of the of the ribs. Views: 3 views. Bilateral ribs. COMPARISON: CR (CHEST, ) 01/23/2023 11:45 AM FINDINGS: Bones/joints: No acute or old rib fractures evident. Three level thoracic kyphoplasty is noted. Soft tissues: Normal. XR/XR ribs 3V* [id number] IMPRESSION: No acute findings.
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
--- NOTE | 2023-02-16 14:29 | PC.SOCIAL ---
IMM Update IMM not updated, pending guardianship on pt. Pt is not expected to d/c in the next 24-48hrs.
[2023-02-16] MEDS: mirtazapine 15 mg Tablet 7.5 MG PO (20:31)
[2023-02-17 03:32] VITALS: BP 100/66; PULSE 81; RESP 15; TEMP 37; O2SAT 91
--- NOTE | 2023-02-17 06:31 | PC.NURSE ---
Pt unable to do standing knee xray; Dr Dukes notified via [facility] at 3126; no new orders
[2023-02-17 07:23] VITALS: BP 111/65; PULSE 68; RESP 16; TEMP 37.1; O2SAT 90
--- NOTE | 2023-02-17 08:44 | XRR_ITS ---
PROCEDURE INFORMATION: Exam: XR Right Knee Exam date and time: 02/17/2023 2:04 PM Age: 67 years old Clinical indication: Patient HX: Bilateral knee pain after multiple falls TECHNIQUE: Imaging protocol: Radiologic exam of the right knee. Views: 1 or 2 views. COMPARISON: No relevant prior studies available. FINDINGS: Bones/joints: No acute fracture or dislocation. Mild tricompartmental degenerative changes. Minimal quadriceps insertional enthesophyte. Possible small intra-articular body projecting at the medial lateral compartment. Soft tissues: Unremarkable. XR/XR knee RT 1-2V [id number] IMPRESSION: 1. No acute findings. 2. Mild tricompartmental osteoarthritic changes with suggested small intra-articular body.
--- NOTE | 2023-02-17 08:44 | XRR_ITS ---
PROCEDURE INFORMATION: Exam: XR Left Knee Exam date and time: 02/17/2023 2:00 PM Age: 67 years old Clinical indication: Patient HX: Bilateral knee pain after multiple falls TECHNIQUE: Imaging protocol: Radiologic exam of the left knee. Views: 1 or 2 views. COMPARISON: No relevant prior studies available. FINDINGS: Bones/joints: No acute fracture or dislocation. Joint spacing and alignment are maintained. Minimal quadriceps insertional enthesophyte. Soft tissues: Unremarkable. XR/XR knee LT 1-2V [id number] IMPRESSION: No acute findings.
[2023-02-17] MEDS: aspirin 81 mg EC Tablet PO (10:00)
[2023-02-17] MEDS: thiamine 100 mg Tablet PO (10:00)
[2023-02-17] MEDS: folic acid 1 mg Tablet PO (10:00)
[2023-02-17 11:25] VITALS: BP 111/65; PULSE 76; RESP 16; TEMP 37.2; O2SAT 93
--- NOTE | 2023-02-17 13:48 | XRR_ITS ---
PROCEDURE INFORMATION: Exam: XR Left Elbow Exam date and time: 02/17/2023 2:02 PM Age: 67 years old Clinical indication: Left; Patient HX: Lt elbow pain post foosh TECHNIQUE: Imaging protocol: Radiologic exam of the left elbow. Views: 1 or 2 views. COMPARISON: No relevant prior studies available. FINDINGS: Bones/joints: No acute fracture or dislocation. Joint spacing and alignment are maintained. No joint effusion. Soft tissues: Unremarkable. XR/XR elbow LT 2V [id number] IMPRESSION: No acute findings.
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
[2023-02-17 15:26] VITALS: BP 108/70; PULSE 76; RESP 17; TEMP 37.3; O2SAT 91
[2023-02-17 20:00] VITALS: BP 105/66; PULSE 74; RESP 17; TEMP 37.1; O2SAT 93
[2023-02-17] MEDS: mirtazapine 15 mg Tablet 7.5 MG PO (21:19)
[2023-02-17 23:16] VITALS: BP 106/68; PULSE 64; RESP 17; TEMP 36.6; O2SAT 92
[2023-02-18 04:00] VITALS: BP 102/64; PULSE 64; RESP 16; TEMP 36.8; O2SAT 91
[2023-02-18 07:57] VITALS: BP 113/73; PULSE 66; RESP 15; TEMP 36.7; O2SAT 92
[2023-02-18] MEDS: thiamine 100 mg Tablet PO (09:01)
[2023-02-18] MEDS: aspirin 81 mg EC Tablet PO (09:01)
[2023-02-18] MEDS: folic acid 1 mg Tablet PO (09:01)
[2023-02-18 12:00] VITALS: BP 120/84; PULSE 82; RESP 17; TEMP 36.8; O2SAT 95
[2023-02-18] MEDS: acetaminophen 325 mg Tablet 650 MG PO (13:14)
[2023-02-18 16:00] VITALS: BP 103/66; PULSE 72; RESP 16; TEMP 36.7; O2SAT 96
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
[2023-02-18 19:38] VITALS: BP 104/57; PULSE 75; RESP 16; TEMP 37.3; O2SAT 92
[2023-02-18] MEDS: mirtazapine 15 mg Tablet 7.5 MG PO (20:19)
[2023-02-18 23:52] VITALS: BP 108/71; PULSE 75; RESP 17; TEMP 36.9; O2SAT 91
[2023-02-19 03:17] VITALS: BP 105/67; PULSE 69; RESP 17; TEMP 36.9; O2SAT 92
[2023-02-19 08:00] VITALS: BP 107/74; PULSE 98; RESP 18; TEMP 36.3; O2SAT 97
[2023-02-19] MEDS: folic acid 1 mg Tablet PO (09:52)
[2023-02-19] MEDS: thiamine 100 mg Tablet PO (09:52)
[2023-02-19] MEDS: aspirin 81 mg EC Tablet PO (10:24)
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
[2023-02-19 12:00] VITALS: BP 121/75; PULSE 81; RESP 18; TEMP 36.8; O2SAT 98
[2023-02-19 16:00] VITALS: BP 117/72; PULSE 74; RESP 16; TEMP 36.9; O2SAT 93
[2023-02-19 20:00] VITALS: BP 121/80; PULSE 76; RESP 20; TEMP 36.9; O2SAT 93
[2023-02-20] VITALS: BP 110/55; PULSE 53; RESP 16; TEMP 36.4; O2SAT 94
[2023-02-20 04:00] VITALS: BP 118/83; PULSE 66; RESP 18; TEMP 36.8; O2SAT 93
[2023-02-20 08:00] VITALS: BP 104/63; PULSE 65; RESP 15; TEMP 36.8; O2SAT 93
[2023-02-20] MEDS: folic acid 1 mg Tablet PO (08:32)
[2023-02-20] MEDS: thiamine 100 mg Tablet PO (08:32)
[2023-02-20] MEDS: aspirin 81 mg EC Tablet PO (08:32)
--- NOTE | 2023-02-20 09:05 | PC.CHAP ---
Pastoral Care Encounter/Spiritual Assessment Type of Contact [] Declined administrative accountant visit [] Patient/Family/Request visit [] Outpatient visit [] Follow-up visit [] Physician referral [] Code/Alert [x] Routine visit [] Staff referral [] Actively dying [] Patient sleeping [] Family support [] [] Out of room [] Palliative care [] [] Receiving care in room [] Pre-surgical visit [] Trauma [] Long length of stay [] ICU visit [] Other: Relational/Emotional Strength [] Patient feels connected with others/family/visitors/staff [] Distress [] Loneliness/isolation [] Abandonment Spirituality of Patient [x] Person of Louann [] Attends Orthodox of their [place] [x] Believes in Prayer [] Reads Bible or Sikh materials [] There are Spiritual issues to be addressed Support Services Manager Interventions [x] Prayer [x] Active listening [] Non-anxious presence [x] Spiritual/emotional support [] Crisis/trauma care [] Spiritual counseling [] Bereavement support [] Provided bereavement packet [] Provided Bible/devotional materials [] Provided toy/stuffed animal, coloring book to patient or family member [] Provided Communion [] Anointing/[place] [] Salvation [x] Completed spiritual assessment [] Other: Impact on Illness or Injury [] Angry [] Fearful [] Anxious [] Often cries [] Exhaustion [] Unable to work [] Unable to attend mormon [] Unable to walk/stand [] Unable to read [] Unable to drive [] Unable to eat/drink [] Unable to sleep [] Unable to be with family [] Patient intubated [] Other: Summary Time spent with patient 5 min
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
[2023-02-20 12:00] VITALS: BP 103/60; PULSE 80; RESP 16; TEMP 36.9; O2SAT 93
[2023-02-20 16:00] VITALS: BP 111/62; PULSE 73; RESP 16; TEMP 37.1; O2SAT 96
--- NOTE | 2023-02-20 17:53 | PC.NURSE ---
Visit with Andrea Tsang: Andrea Tsang visited with pt and stated, She is not with it at all. She's there and then she is not. She did agree to go to [facility] and asked about him taking her shopping. I will talk with Dori and see how that will go.
[2023-02-20 20:00] VITALS: BP 106/65; PULSE 77; RESP 17; TEMP 36.9; O2SAT 95
[2023-02-21] VITALS (7 sets, daily range): BP systolic 91–124; BP diastolic 56–72; PULSE 56–93; RESP 16–17; TEMP 36.6–36.8; O2SAT 91–95
[2023-02-21] MEDS: folic acid 1 mg Tablet PO (08:38)
[2023-02-21] MEDS: thiamine 100 mg Tablet PO (08:38)
[2023-02-21] MEDS: aspirin 81 mg EC Tablet PO (08:38)
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
[2023-02-21 16:23] LABS: SARS Covid-2 Antigen negative (Negative)
[2023-02-22 03:28] VITALS: BP 114/63; PULSE 66; RESP 13; TEMP 36.6; O2SAT 92
[2023-02-22 08:00] VITALS: BP 106/62; PULSE 84; RESP 13; TEMP 37; O2SAT 94
[2023-02-22] MEDS: folic acid 1 mg Tablet PO (10:13)
[2023-02-22] MEDS: aspirin 81 mg EC Tablet PO (10:13)
[2023-02-22] MEDS: thiamine 100 mg Tablet PO (10:13)
--- NOTE | 2023-02-22 11:00 | PC.SOCIAL ---
IMM Update pg 2 of IMM updated and reviewed w/ patients assigned guardian Dori Nieves [facility] public atlassian administrator. Copy placed in chart.
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
--- NOTE | 2023-02-22 13:29 | PC.NURSE ---
This nurse attempted to call report to [facility] at 1300 and was told there were no orders. Case management was contacted and said there was orders. Nurse told [facility] to call back.
--- NOTE | 2023-02-22 13:39 | PC.NURSE ---
This nurse spoke with Nurse Cain at [facility].Updated on patients current status and history.
== END 2023-02-22 13:25 | disposition skilled nursing facility (03) | DRG 641 ==
LOC: ER 16:00 → MEDSURG 16:34
PROVIDERS: Internal Medicine; Student in an Organized Health Care Education/Training Program; Admitting Provider Hospitalist; Emergency Provider Family Medicine; PCP Family Medicine Adult Medicine; Visit Provider Student in an Organized Health Care Education/Training Program
DX: E51.2 Wernicke's encephalopathy (principal); T76.01XA Adult neglect or abandonment, suspected, initial encounter; Z68.1 Body mass index [BMI] 19.9 or less, adult; F10.27 Alcohol dependence with alcohol-induced persisting dementia; E46 Unspecified protein-calorie malnutrition; L97.809 Non-pressure chronic ulcer of other part of unspecified lower leg with unspecified severity; E86.0 Dehydration; E03.9 Hypothyroidism, unspecified; R29.6 Repeated falls; I77.811 Abdominal aortic ectasia; F17.210 Nicotine dependence, cigarettes, uncomplicated; E78.5 Hyperlipidemia, unspecified; J44.9 Chronic obstructive pulmonary disease, unspecified; I48.0 Paroxysmal atrial fibrillation; Z79.01 Long term (current) use of anticoagulants; F04 Amnestic disorder due to known physiological condition; L23.9 Allergic contact dermatitis, unspecified cause; R63.0 Anorexia; Z89.412 Acquired absence of left great toe; Y07.499 Other family member, perpetrator of maltreatment and neglect
CPT/HCPCS: 36415; 36416; 36569; 36573; 51702; 70450; 71045; 71110; 73070; 73560; 80048; 80053; 80307; 81001; 82009; 82550; 82962; 83605; 83690; 83735; 84100; 84439; 84443; 84478; 84481; 84484; 85025; 85610; 85651; 86140; 87086; 87426; 93005; 96360; 96372; 97110; 97116; 97161; 97167; 97530; 97535; 99285; C1751; J2405; J3411; J3420; J7030

== ENCOUNTER → 2023-05-23 09:50 | Outpatient (BNVA) | payer MEDICARE, OTHER, SELFPAY | PROVIDERS: PCP Family Medicine Adult Medicine; Visit Provider Family Medicine Adult Medicine | DX: F04 Amnestic disorder due to known physiological condition (principal); E05.00 Thyrotoxicosis with diffuse goiter without thyrotoxic crisis or storm; R41.82 Altered mental status, unspecified; F10.27 Alcohol dependence with alcohol-induced persisting dementia; Z79.899 Other long term (current) drug therapy | CPT/HCPCS: 80053; 80061; 84443 ==